=== PATIENT | male | born 1950 | race American Indian/Alaskan Native ===

== ENCOUNTER 2019-01-01 20:40 | Inpatient (IN) | payer MEDICARE, OTHER ==
[2019-01-01] MEDS ORDERED: NACL 0.9% 1000 ML 1,000 ML IV ONE ×2 (21:21→21:58)
[2019-01-01] MEDS ORDERED: NACL 0.9% 1000 ML 2,000 ML ONE (21:21)
[2019-01-01] MEDS ORDERED: ZOFRAN IV ONE (21:21)
[2019-01-01 21:47] LABS: Hemoglobin 12.5 gm/dl (11.8-15.2); Mean Corpuscular HGB Conc 35 % (32-34); Mean Corpuscular Volume 92 fl (84-94); Platelet Count 170 K/mm3 (140-440); Red Blood Count 3.91 M/mm3 (3.65-5.03); Red Cell Distribution Width 16.1 % (13.2-15.2)
[2019-01-01 21:53] LABS: Albumin 2.6 g/dL (3.9-5); Calcium 8.7 mg/dL (8.4-10.2)
[2019-01-01 21:54] LABS: INR 1.27 (0.87-1.13)
[2019-01-01] MEDS ORDERED: NACL 0.9% 1000 ML IV ONE (22:03)
[2019-01-01] MEDS ORDERED: MAXIPIME/NS 1 GM/100 ML 1 GM/100 ML BAG IV ONE (22:03)
[2019-01-01] MEDS ORDERED: VANCOMYCIN/NS 1 GM/250 ML 1 GM/250 ML BAG IV ONE (22:04)
[2019-01-01 22:31] LABS: Band Neutrophils # (Manual) 4.2 K/mm3; Basophils % (Manual) 0 % (0.0-1.8); Eosinophils % (Manual) 0 % (0.0-4.3); Total Cells Counted 100
[2019-01-01 22:32] LABS: Macrocytosis 1+; Platelet Estimate Consistent w Auto; Target Cells Few
--- NOTE | 2019-01-01 22:58 | XRay Report ---
FINAL REPORT EXAM: XRAY CHEST SINGLE VIEW HISTORY: AMS TECHNIQUE: Frontal portable view of the chest Comparison: None FINDINGS: There is bilateral hypoinflation with crowding of the bronchovascular structures. The there prominence of the interstitial markings in both lungs. There is the appearance of atelectasis in both lung bases with bilateral pleural effusions. The cardiac silhouette appears to be normal size. The thoracic aorta is tortuous. The bony structures are unremarkable. The visualized portion the abdomen is notable for a distended air-filled loop of bowel in the upper a bdomen with an otherwise paucity of bowel gas in the upper abdomen.. IMPRESSION: 1. Hypoinflation with prominence of the interstitial markings in both lungs, atelectasis in both lung bases and evidence of bilateral pleural effusions. Infectious and noninfectious etiologies, to inclu de CHF, need to be considered. 2. Distended air-filled loop of bowel in the visualized portion the abdomen with and otherwise paucit y of bowel gas in the upper abdomen. CT abdomen and pelvis may be helpful for further evaluation of this finding.
[2019-01-01 23:19] LABS: Bacteria,Urine 1+ /HPF (Negative); Bilirubin,Urine NEG (Negative); Blood,Urine MOD (Negative); Color,Urine Amber (Yellow); Granular Casts,Urine 4 /LPF; Hyaline Casts,Urine 41 /LPF; Mucus,Urine 1+ /HPF
--- NOTE | 2019-01-01 23:19 | Emergency Department Report ---
ED Altered Mental Status HPI - General Chief Complaint: Altered Mental Status Stated Complaint: SWOLLEN LEGS, ABDOMINAL PAIN Time Seen by Provider: 01/01/19 21:14 Source: patient Mode of arrival: Ambulatory Limitations: Altered Mental Status - History of Present Illness Initial Comments: 68-year-old male found his home by her friend with altered mental status. Patient is somewhat confused. Patient states his friend thought he should come to the ER because he did not look well. Patient states he feels "fine." Denies any pain. Patient has dried blood in his nose. I asked if he fell, patient states no. States his nose started bleeding because he was blowing his nose a lot. Patient states he vomited "dark stuff" earlier, and he has been blowing his nose since. Patient denies dark stool or blood in his stool. Patient has severely distended abdomen and with edema of the bilateral lower extremities. Denies abdominal pain. Denies history of cirrhosis. Denies alcohol abuse. I asked patient if he has ever been told that he has hepatitis or Hep C, patient reports yes. MD Complaint: altered mental status -: unknown Context: liver disease (possible), unknown Associated Symptoms: nausea/vomiting. denies: chest pain, cough, fever/chills, headaches - Related Data Allergies Allergy/AdvReac Type Severity Reaction Status Date / Time No Known Allergies Allergy Verified 01/01/19 23:23 ED Review of Systems ROS: Stated complaint: SWOLLEN LEGS, ABDOMINAL PAIN Other details as noted in HPI Comment: All other systems reviewed and negative Constitutional: denies: chills, fever Respiratory: denies: cough, shortness of breath Cardiovascular: denies: chest pain Gastrointestinal: vomiting, hematemesis. denies: melena, hematochezia Neurological: denies: headache ED Past Medical Hx - Social History Smoking Status: Unknown if ever smoked ED Physical Exam - General Limitations: Altered Mental Status General appearance: alert, lethargic - Head Head exam: Present: atraumatic, normocephalic - Eye Eye exam: Present: scleral icterus - ENT ENT exam: Present: mucous membranes dry, other (dried blood in nare) - Neck Neck exam: Present: normal inspection - Respiratory Respiratory exam: Present: normal lung sounds bilaterally. Absent: respiratory distress - Cardiovascular Cardiovascular Exam: Present: regular rate, normal rhythm - GI/Abdominal GI/Abdominal exam: Present: distended. Absent: tenderness - Extremities Exam Extremities exam: Present: other (2+ pitting edema bilateral lower extremities) - Neurological Exam Neurological exam: Present: alert, altered - Psychiatric Psychiatric exam: Present: normal affect, normal mood - Skin Skin exam: Present: warm, dry, intact, normal color ED Course Vital Signs 01/01/19 01/01/19 01/01/19 20:50 21:15 21:21 Temperature 92.1 F L Temperature [ Pre-Procedure] Pulse Rate 85 146 H 79 Pulse Rate [Pre -Procedure] Respiratory 20 21 Rate Respiratory Rate [Pre- Procedure] Blood Pressure 73/42 Blood Pressure 69/52 55/34 [Left] Blood Pressure [Pre-Procedure] O2 Sat by Pulse 85 Oximetry O2 Sat by Pulse Oximetry [Pre- Procedure] 01/01/19 01/01/19 01/01/19 21:45 22:00 22:03 Temperature Temperature [ Pre-Procedure] Pulse Rate 78 80 Pulse Rate [Pre -Procedure] Respiratory 17 18 21 Rate Respiratory Rate [Pre- Procedure] Blood Pressure 66/36 91/64 Blood Pressure [Left] Blood Pressure [Pre-Procedure] O2 Sat by Pulse 93 100 100 Oximetry O2 Sat by Pulse Oximetry [Pre- Procedure] 01/01/19 01/01/19 01/01/19 22:30 22:45 23:00 Temperature 91.7 F L Temperature [ Pre-Procedure] Pulse Rate 80 79 81 Pulse Rate [Pre -Procedure] Respiratory 18 18 17 Rate Respiratory Rate [Pre- Procedure] Blood Pressure 86/60 89/60 78/57 Blood Pressure [Left] Blood Pressure [Pre-Procedure] O2 Sat by Pulse 100 98 97 Oximetry O2 Sat by Pulse Oximetry [Pre- Procedure] 01/01/19 01/01/19 01/01/19 23:01 23:15 23:30 Temperature Temperature [ 92.1 F L Pre-Procedure] Pulse Rate 80 79 Pulse Rate [Pre 81 -Procedure] Respiratory 15 22 Rate Respiratory 17 Rate [Pre- Procedure] Blood Pressure 84/62 92/63 Blood Pressure [Left] Blood Pressure 78/57 [Pre-Procedure] O2 Sat by Pulse 100 94 Oximetry O2 Sat by Pulse 97 Oximetry [Pre- Procedure] 01/02/19 01/02/19 01/02/19 00:15 00:17 00:31 Temperature Temperature [ Pre-Procedure] Pulse Rate 81 83 83 Pulse Rate [Pre -Procedure] Respiratory 17 22 18 Rate Respiratory Rate [Pre- Procedure] Blood Pressure 97/60 97/60 97/64 Blood Pressure [Left] Blood Pressure [Pre-Procedure] O2 Sat by Pulse 100 100 100 Oximetry O2 Sat by Pulse Oximetry [Pre- Procedure] 01/02/19 00:45 Temperature Temperature [ Pre-Procedure] Pulse Rate 86 Pulse Rate [Pre -Procedure] Respiratory 20 Rate Respiratory Rate [Pre- Procedure] Blood Pressure 97/64 Blood Pressure [Left] Blood Pressure [Pre-Procedure] O2 Sat by Pulse 100 Oximetry O2 Sat by Pulse Oximetry [Pre- Procedure] - Central Line Placement Right Femoral Consent Obtained: emergent situation Time Out Performed: Yes Patient Placed on Monitor/Pulse Ox: Yes Prep: mask, gown, gloves Central Line Prep: Chlorhexidine scrub Local Anesthesia Used: Lidocaine 1% Amount of Anesthesia Used (mls): 3 Ultrasound Used for Placement: No Central Line Lumen Inserted: triple Bloods Obtained for Lab: Yes (ammonia level) Central Line Position: good blood return, all ports aspirated, flus, sutured in place with 2-0 Dressing Applied: Tegaderm Patient Tolerated Procedure: well Complications: none - Lab Data Result diagrams: 01/01/19 21:25 01/01/19 21:25 Lab Results 01/01/19 01/01/19 01/01/19 Range/Units 02:22 21:16 21:25 WBC 14.9 H (4.5-11.0) K/mm3 RBC 3.91 (3.65-5.03) M/mm3 Hgb 12.5 (11.8-15.2) gm/dl Hct 36.0 (35.5-45.6) % MCV 92 (84-94) fl MCH 32 (28-32) pg MCHC 35 H (32-34) % RDW 16.1 H (13.2-15.2) % Plt Count 170 (140-440) K/mm3 Add Manual Diff Complete Total Counted 100 Seg Neutrophils % [employer] In[employer] Seg Neuts % (Manual) 68.0 (40.0-70.0) % Band Neutrophils % 28.0 % Lymphocytes % (Manual) 2.0 L (13.4-35.0) % Reactive Lymphs % (Man) 0 % Monocytes % (Manual) 2.0 (0.0-7.3) % Eosinophils % (Manual) 0 (0.0-4.3) % Basophils % (Manual) 0 (0.0-1.8) % Metamyelocytes % 0 % Myelocytes % 0 % Promyelocytes % 0 % Blast Cells % 0 % Nucleated RBC % Not Reportable Seg Neutrophils # Man 10.1 H (1.8-7.7) K/mm3 Band Neutrophils # 4.2 K/mm3 Lymphocytes # (Manual) 0.3 L (1.2-5.4) K/mm3 Abs React Lymphs (Man) 0.0 K/mm3 Monocytes # (Manual) 0.3 (0.0-0.8) K/mm3 Eosinophils # (Manual) 0.0 (0.0-0.4) K/mm3 Basophils # (Manual) 0.0 (0.0-0.1) K/mm3 Metamyelocytes # 0.0 K/mm3 Myelocytes # 0.0 K/mm3 Promyelocytes # 0.0 K/mm3 Blast Cells # 0.0 K/mm3 WBC Morphology Not Reportable Hypersegmented Neuts Not Reportable Hyposegmented Neuts Not Reportable Hypogranular Neuts Not Reportable Smudge Cells Not Reportable Toxic Granulation Not Reportable Toxic Vacuolation Not Reportable Dohle Bodies Not Reportable Pelger-Huet Anomaly Not Reportable Korin Rods Not Reportable Platelet Estimate Consistent w auto Clumped Platelets Not Reportable Plt Clumps, EDTA Not Reportable Large Platelets Not Reportable Giant Platelets Not Reportable Platelet Satelliting Not Reportable Plt Morphology Comment Not Reportable RBC Morphology Not Reportable Dimorphic RBCs Not Reportable Polychromasia Not Reportable Hypochromasia Not Reportable Poikilocytosis Not Reportable Anisocytosis Not Reportable Microcytosis Not Reportable Macrocytosis 1+ Spherocytes Not Reportable Pappenheimer Bodies Not Reportable Sickle Cells Not Reportable Target Cells Few Tear Drop Cells Not Reportable Ovalocytes Not Reportable Helmet Cells Not Reportable Shrestha-Kuna Bodies Not Reportable [place] Rings Not Reportable [place] Cells Not Reportable Bite Cells Not Reportable Crenated Cell Not Reportable Elliptocytes Not Reportable Acanthocytes (Spur) Not Reportable Rouleaux Not Reportable Hemoglobin C Crystals Not Reportable Schistocytes Not Reportable Malaria parasites Not Reportable Macho Bodies Not Reportable Hem Pathologist Commnt No PT (12.2-14.9) Sec. INR (0.87-1.13) APTT (24.2-36.6) Sec. Sodium (137-145) mmol/L Potassium (3.6-5.0) mmol/L Chloride (98-107) mmol/L Carbon Dioxide (22-30) mmol/L Anion Gap mmol/L BUN (9-20) mg/dL Creatinine (0.8-1.5) mg/dL Estimated GFR ml/min BUN/Creatinine Ratio % Glucose (75-100) mg/dL POC Glucose 106 H (70-105) Lactic Acid (0.7-2.0) mmol/L Calcium (8.4-10.2) mg/dL Total Bilirubin (0.1-1.2) mg/dL AST (5-40) units/L ALT (7-56) units/L Alkaline Phosphatase (35-129) units/L Ammonia (25-60) umol/L Total Protein (6.3-8.2) g/dL Albumin (3.9-5) g/dL Albumin/Globulin Ratio % Urine Color [place] (Yellow) Urine Turbidity Slightly-cloudy (Clear) Urine pH 5.0 (5.0-7.0) Ur Specific Eva 1.015 (1.003-1.030) Urine Protein 100 mg/dl (Negative) mg/dL Urine Glucose (UA) Neg (Negative) mg/dL Urine Ketones Tr (Negative) mg/dL Urine Blood Mod (Negative) Urine Nitrite Neg (Negative) Urine Bilirubin Neg (Negative) Urine Urobilinogen 4.0 (<2.0) mg/dL Ur Leukocyte Esterase Tr (Negative) Urine WBC (Auto) 27.0 H (0.0-6.0) /HPF Urine RBC (Auto) 3.0 (0.0-6.0) /HPF U Epithel Cells (Auto) < 1.0 (0-13.0) /HPF Urine Bacteria (Auto) 1+ (Negative) /HPF Hyaline Casts 41 /LPF Granular Casts 4 /LPF Urine Mucus 1+ /HPF 01/01/19 01/01/19 01/01/19 Range/Units 21:25 21:25 21:25 WBC (4.5-11.0) K/mm3 RBC (3.65-5.03) M/mm3 Hgb (11.8-15.2) gm/dl Hct (35.5-45.6) % MCV (84-94) fl MCH (28-32) pg MCHC (32-34) % RDW (13.2-15.2) % Plt Count (140-440) K/mm3 Add Manual Diff Total Counted Seg Neutrophils % Seg Neuts % (Manual) (40.0-70.0) % Band Neutrophils % % Lymphocytes % (Manual) (13.4-35.0) % Reactive Lymphs % (Man) % Monocytes % (Manual) (0.0-7.3) % Eosinophils % (Manual) (0.0-4.3) % Basophils % (Manual) (0.0-1.8) % Metamyelocytes % % Myelocytes % % Promyelocytes % % Blast Cells % % Nucleated RBC % Seg Neutrophils # Man (1.8-7.7) K/mm3 Band Neutrophils # K/mm3 Lymphocytes # (Manual) (1.2-5.4) K/mm3 Abs React Lymphs (Man) K/mm3 Monocytes # (Manual) (0.0-0.8) K/mm3 Eosinophils # (Manual) (0.0-0.4) K/mm3 Basophils # (Manual) (0.0-0.1) K/mm3 Metamyelocytes # K/mm3 Myelocytes # K/mm3 Promyelocytes # K/mm3 Blast Cells # K/mm3 WBC Morphology Hypersegmented Neuts Hyposegmented Neuts Hypogranular Neuts Smudge Cells Toxic Granulation Toxic Vacuolation Dohle Bodies Pelger-Huet Anomaly Korin Rods Platelet Estimate Clumped Platelets Plt Clumps, EDTA Large Platelets Giant Platelets Platelet Satelliting Plt Morphology Comment RBC Morphology Dimorphic RBCs Polychromasia Hypochromasia Poikilocytosis Anisocytosis Microcytosis Macrocytosis Spherocytes Pappenheimer Bodies Sickle Cells Target Cells Tear Drop Cells Ovalocytes Helmet Cells Shrestha-Kuna Bodies [place] Rings [place] Cells Bite Cells Crenated Cell Elliptocytes Acanthocytes (Spur) Rouleaux Hemoglobin C Crystals Schistocytes Malaria parasites Macho Bodies Hem Pathologist Commnt PT (12.2-14.9) Sec. INR (0.87-1.13) APTT 31.1 (24.2-36.6) Sec. Sodium 124 L (137-145) mmol/L Potassium 3.9 (3.6-5.0) mmol/L Chloride 80.3 L (98-107) mmol/L Carbon Dioxide 21 L (22-30) mmol/L Anion Gap 27 mmol/L BUN 25 H (9-20) mg/dL Creatinine 1.7 H (0.8-1.5) mg/dL Estimated GFR 49 ml/min BUN/Creatinine Ratio 15 % Glucose 117 H (75-100) mg/dL POC Glucose (70-105) Lactic Acid 3.50 H* (0.7-2.0) mmol/L Calcium 8.7 (8.4-10.2) mg/dL Total Bilirubin 2.40 H (0.1-1.2) mg/dL AST 200 H (5-40) units/L ALT 49 (7-56) units/L Alkaline Phosphatase 63 (35-129) units/L Ammonia (25-60) umol/L Total Protein 6.7 (6.3-8.2) g/dL Albumin 2.6 L (3.9-5) g/dL Albumin/Globulin Ratio 0.6 % Urine Color (Yellow) Urine Turbidity (Clear) Urine pH (5.0-7.0) Ur Specific Eva (1.003-1.030) Urine Protein (Negative) mg/dL Urine Glucose (UA) (Negative) mg/dL Urine Ketones (Negative) mg/dL Urine Blood (Negative) Urine Nitrite (Negative) Urine Bilirubin (Negative) Urine Urobilinogen (<2.0) mg/dL Ur Leukocyte Esterase (Negative) Urine WBC (Auto) (0.0-6.0) /HPF Urine RBC (Auto) (0.0-6.0) /HPF U Epithel Cells (Auto) (0-13.0) /HPF Urine Bacteria (Auto) (Negative) /HPF Hyaline Casts /LPF Granular Casts /LPF Urine Mucus /HPF 01/01/19 01/01/19 01/01/19 Range/Units 21:25 22:26 23:23 WBC (4.5-11.0) K/mm3 RBC (3.65-5.03) M/mm3 Hgb (11.8-15.2) gm/dl Hct (35.5-45.6) % MCV (84-94) fl MCH (28-32) pg MCHC (32-34) % RDW (13.2-15.2) % Plt Count (140-440) K/mm3 Add Manual Diff Total Counted Seg Neutrophils % Seg Neuts % (Manual) (40.0-70.0) % Band Neutrophils % % Lymphocytes % (Manual) (13.4-35.0) % Reactive Lymphs % (Man) % Monocytes % (Manual) (0.0-7.3) % Eosinophils % (Manual) (0.0-4.3) % Basophils % (Manual) (0.0-1.8) % Metamyelocytes % % Myelocytes % % Promyelocytes % % Blast Cells % % Nucleated RBC % Seg Neutrophils # Man (1.8-7.7) K/mm3 Band Neutrophils # K/mm3 Lymphocytes # (Manual) (1.2-5.4) K/mm3 Abs React Lymphs (Man) K/mm3 Monocytes # (Manual) (0.0-0.8) K/mm3 Eosinophils # (Manual) (0.0-0.4) K/mm3 Basophils # (Manual) (0.0-0.1) K/mm3 Metamyelocytes # K/mm3 Myelocytes # K/mm3 Promyelocytes # K/mm3 Blast Cells # K/mm3 WBC Morphology Hypersegmented Neuts Hyposegmented Neuts Hypogranular Neuts Smudge Cells Toxic Granulation Toxic Vacuolation Dohle Bodies Pelger-Huet Anomaly Korin Rods Platelet Estimate Clumped Platelets Plt Clumps, EDTA Large Platelets Giant Platelets Platelet Satelliting Plt Morphology Comment RBC Morphology Dimorphic RBCs Polychromasia Hypochromasia Poikilocytosis Anisocytosis Microcytosis Macrocytosis Spherocytes Pappenheimer Bodies Sickle Cells Target Cells Tear Drop Cells Ovalocytes Helmet Cells Shrestha-Kuna Bodies [place] Rings Amanda Cells Bite Cells Crenated Cell Elliptocytes Acanthocytes (Spur) Rouleaux Hemoglobin C Crystals Schistocytes Malaria parasites Macho Bodies Hem Pathologist Commnt PT 16.7 H (12.2-14.9) Sec. INR 1.27 H (0.87-1.13) APTT (24.2-36.6) Sec. Sodium (137-145) mmol/L Potassium (3.6-5.0) mmol/L Chloride (98-107) mmol/L Carbon Dioxide (22-30) mmol/L Anion Gap mmol/L BUN (9-20) mg/dL Creatinine (0.8-1.5) mg/dL Estimated GFR ml/min BUN/Creatinine Ratio % Glucose (75-100) mg/dL POC Glucose (70-105) Lactic Acid 2.80 H* 2.10 H* (0.7-2.0) mmol/L Calcium (8.4-10.2) mg/dL Total Bilirubin (0.1-1.2) mg/dL AST (5-40) units/L ALT (7-56) units/L Alkaline Phosphatase (35-129) units/L Ammonia (25-60) umol/L Total Protein (6.3-8.2) g/dL Albumin (3.9-5) g/dL Albumin/Globulin Ratio % Urine Color (Yellow) Urine Turbidity (Clear) Urine pH (5.0-7.0) Ur Specific Eva (1.003-1.030) Urine Protein (Negative) mg/dL Urine Glucose (UA) (Negative) mg/dL Urine Ketones (Negative) mg/dL Urine Blood (Negative) Urine Nitrite (Negative) Urine Bilirubin (Negative) Urine Urobilinogen (<2.0) mg/dL Ur Leukocyte Esterase (Negative) Urine WBC (Auto) (0.0-6.0) /HPF Urine RBC (Auto) (0.0-6.0) /HPF U Epithel Cells (Auto) (0-13.0) /HPF Urine Bacteria (Auto) (Negative) /HPF Hyaline Casts /LPF Granular Casts /LPF Urine Mucus /HPF 01/01/19 Range/Units 23:23 WBC (4.5-11.0) K/mm3 RBC (3.65-5.03) M/mm3 Hgb (11.8-15.2) gm/dl Hct (35.5-45.6) % MCV (84-94) fl MCH (28-32) pg MCHC (32-34) % RDW (13.2-15.2) % Plt Count (140-440) K/mm3 Add Manual Diff Total Counted Seg Neutrophils % Seg Neuts % (Manual) (40.0-70.0) % Band Neutrophils % % Lymphocytes % (Manual) (13.4-35.0) % Reactive Lymphs % (Man) % Monocytes % (Manual) (0.0-7.3) % Eosinophils % (Manual) (0.0-4.3) % Basophils % (Manual) (0.0-1.8) % Metamyelocytes % % Myelocytes % % Promyelocytes % % Blast Cells % % Nucleated RBC % Seg Neutrophils # Man (1.8-7.7) K/mm3 Band Neutrophils # K/mm3 Lymphocytes # (Manual) (1.2-5.4) K/mm3 Abs React Lymphs (Man) K/mm3 Monocytes # (Manual) (0.0-0.8) K/mm3 Eosinophils # (Manual) (0.0-0.4) K/mm3 Basophils # (Manual) (0.0-0.1) K/mm3 Metamyelocytes # K/mm3 Myelocytes # K/mm3 Promyelocytes # K/mm3 Blast Cells # K/mm3 WBC Morphology Hypersegmented Neuts Hyposegmented Neuts Hypogranular Neuts Smudge Cells Toxic Granulation Toxic Vacuolation Dohle Bodies Pelger-Huet Anomaly Korin Rods Platelet Estimate Clumped Platelets Plt Clumps, EDTA Large Platelets Giant Platelets Platelet Satelliting Plt Morphology Comment RBC Morphology Dimorphic RBCs Polychromasia Hypochromasia Poikilocytosis Anisocytosis Microcytosis Macrocytosis Spherocytes Pappenheimer Bodies Sickle Cells Target Cells Tear Drop Cells Ovalocytes Helmet Cells Shrestha-Kuna Bodies [place] Rings Amanda Cells Bite Cells Crenated Cell Elliptocytes Acanthocytes (Spur) Rouleaux Hemoglobin C Crystals Schistocytes Malaria parasites Macho Bodies Hem Pathologist Commnt PT (12.2-14.9) Sec. INR (0.87-1.13) APTT (24.2-36.6) Sec. Sodium (137-145) mmol/L Potassium (3.6-5.0) mmol/L Chloride (98-107) mmol/L Carbon Dioxide (22-30) mmol/L Anion Gap mmol/L BUN (9-20) mg/dL Creatinine (0.8-1.5) mg/dL Estimated GFR ml/min BUN/Creatinine Ratio % Glucose (75-100) mg/dL POC Glucose (70-105) Lactic Acid (0.7-2.0) mmol/L Calcium (8.4-10.2) mg/dL Total Bilirubin (0.1-1.2) mg/dL AST (5-40) units/L ALT (7-56) units/L Alkaline Phosphatase (35-129) units/L Ammonia 49.0 (25-60) umol/L Total Protein (6.3-8.2) g/dL Albumin (3.9-5) g/dL Albumin/Globulin Ratio % Urine Color (Yellow) Urine Turbidity (Clear) Urine pH (5.0-7.0) Ur Specific Eva (1.003-1.030) Urine Protein (Negative) mg/dL Urine Glucose (UA) (Negative) mg/dL Urine Ketones (Negative) mg/dL Urine Blood (Negative) Urine Nitrite (Negative) Urine Bilirubin (Negative) Urine Urobilinogen (<2.0) mg/dL Ur Leukocyte Esterase (Negative) Urine WBC (Auto) (0.0-6.0) /HPF Urine RBC (Auto) (0.0-6.0) /HPF U Epithel Cells (Auto) (0-13.0) /HPF Urine Bacteria (Auto) (Negative) /HPF Hyaline Casts /LPF Granular Casts /LPF Urine Mucus /HPF - EKG Data -: EKG Interpreted by Ok EKG shows normal: sinus rhythm, axis, QRS complexes, ST-T waves Rate: normal Interpretation: no acute changes, other (prolonged QT) - Radiology Data Radiology results: report reviewed, image reviewed CT Abd/Pelvis: Significant ascites, liver small consistent with cirrhosis, no evidence of intestinal or urinary tract obstruction, bowel is difficult to evaluate due to the amount of ascites, moderate hiatal hernias identified, fluid within the esophagus consistent with significant reflux CT Head: normal examination * tech issues with radiology; results faxed, however not crossing over into [place] - Medical Decision Making 68-year-old male with what appears to liver cirrhosis presents to ED with altered mental status and generalized weakness. Patient hypotensive on arrival, afebrile, not tachycardic. Patient given IV fluid bolus and 30 mL per KG. WBCs 14.9, lactic acid 3.5. Empiric antibiotics given, vancomycin and cefepime. Patient reported with sounds like coffee-ground emesis, however hemoglobin is normal. Patient's hyponatremic with sodium of 124, this is likely due to patient's fluid overloaded state, as patient has severe ascites and edema to bilateral lower extremities. UA shows evidence of mild infection with 27 wbc's and 1+ bacteria. Chest x-ray showed bilateral pleural effusions. CT head negative. Ammonia level within normal limits. CT abdomen and pelvis showed severe ascites and cirrhotic liver, no bowel or urinary infection. The patient remained hypotensive following fluid bolus, so central line was placed and patient placed on Levophed gtt. Patient will be admitted to the ICU by Dr. Guzman, hospitalist. - Differential Diagnosis dehydration, sepsis, CVA, electrolyte abnormality, hepatic encephalopathy Critical Care Time: Yes Critical care time in (mins) excluding proc time.: 60 Critical care attestation.: If time is entered above; I have spent that time in minutes in the direct care of this critically ill patient, excluding procedure time. Critical Care Time: 60 minutes ED Disposition Clinical Impression: Altered mental status, Sepsis, UTI (urinary tract infection), Hyponatremia, Acute renal failure, Hyperbilirubinemia, Ascites, Pleural effusion, Cirrhosis Disposition: 09 OP ADMIT IP TO THIS HOSP Is pt being admited?: Yes Condition: Critical Referrals: JOSE MANUEL BRICEÑO MD [Primary Care Provider] - 3-5 Days Time of Disposition: 23:53
[2019-01-01] MEDS: LEVOPHED DRIP 4 MG/NS 250 ML 4 MG/250 ML BAG IV SCH (23:25)
[2019-01-02] MEDS ORDERED: VANCOMYCIN PHARMACY TO DOSE IV SCH (02:00)
[2019-01-02] MEDS ORDERED: NACL 0.9% 1000 ML 1,000 ML IV SCH (02:00)
[2019-01-02 05:05] LABS: BUN/Creatinine Ratio 20; Blood Urea Nitrogen 26 mg/dL (9-20); Calcium 7.8 mg/dL (8.4-10.2); Hemolysis Index 90
[2019-01-02] MEDS ORDERED: MAXIPIME/NS 1 GM/100 ML 1 GM/100 ML BAG IV SCH ×2 (06:00→10:00)
--- NOTE | 2019-01-02 08:57 | History and Physical Report ---
CHIEF COMPLAINT: Altered mental status. HISTORY OF PRESENT ILLNESS: The patient is a 68-year-old male who was noted by friends to be confused and told him that he does not feel well that he should be taken to the Emergency Room for evaluation, but on arrival at the Emergency Room, the patient said he is fine and said that he has been blowing his nose hard. When he was evaluated ,he was found to have some dried blood in the nose. The patient denied history of falling down and admitted to vomiting some black material but denied history of black stool. Denied history of bright red blood in the stool or vomiting of bright red blood. The patient presented to the Emergency Room with distended abdomen and swollen lower limbs. There is no history of abdominal pain. No history of fever or chills. The patient denied having history of cirrhosis or alcohol abuse, but admitted to being told that he has had hepatitis C infection. There is no history of chest pain. No history of shortness of breath, fever or chills. The patient also presented to the Emergency Room with low blood pressure of about 69/52. PAST MEDICAL HISTORY: Not well known because the patient is altered and a little confused and nobody could give proper history at the time of evaluation. PAST SURGICAL HISTORY: Not well known. FAMILY HISTORY: Noncontributory. SOCIAL HISTORY: It is not clear whether the patient smokes cigarette or drinks alcohol or uses illicit drugs. MEDICATIONS: The patient's home medications are not known. ALLERGIES: There are no known drug allergies. REVIEW OF SYSTEMS: CONSTITUTIONAL: There is no fever, no chills, no diaphoresis. HEENT: There is no headache or sore; however, there is history of jaundice. CARDIOVASCULAR SYSTEM: There is no chest pain or orthopnea. There is low blood pressure. RESPIRATORY SYSTEM: There is no shortness of breath or cough. GASTROINTESTINAL SYSTEM: Abdominal distention noted. No diarrhea, no melena, no constipation; however, there is vomiting of dark material. NEUROLOGICAL SYSTEM: There is altered mental status, but no numbness or dizziness. MUSCULOSKELETAL SYSTEM: There is no joint pain or swelling. DERMATOLOGICAL SYSTEM: There is no skin rash or itching. GENITOURINARY SYSTEM: There is no dysuria, hematuria or flank pain. Rest of system review is normal. PHYSICAL EXAMINATION: GENERAL: At the time of exam, the patient was found to be alert, oriented to person only, and not in acute distress. VITAL SIGNS: At initial time of presentation show temperature of 92.1 degrees Fahrenheit, pulse of 85, respirations 20, blood pressure 69/52, O2 sat of 85% on room air. HEENT: Shows pupils to be equal, round and reactive to light and accommodation. There is icterus or jaundice. Oral mucosa looks moist. NECK: Supple with no JVD or carotid bruit. CARDIOVASCULAR SYSTEM: Shows normal first and second heart sounds with no gallops or murmurs. RESPIRATORY SYSTEM: Shows reduced air entry on both sides of the lungs with no abnormal breath sounds. GASTROINTESTINAL SYSTEM: Shows abdomen to be distended, nontender with some degree of hepatomegaly and presence of fluid thrill suggestive of ascites. Bowel sound is normal. There is no rigidity or rebound tenderness. NEUROLOGICAL SYSTEM: Shows no focal deficit, but the patient is confused. MUSCULOSKELETAL SYSTEM: Shows swelling in the lower extremities with no joint tenderness. DERMATOLOGICAL SYSTEM: Shows no skin rash. GENITOURINARY SYSTEM: Shows no costovertebral angle tenderness. PERTINENT LABORATORY AND IMAGING STUDIES: The patient had abdominal and pelvic CT done with results pending. The patient's chest x-ray showed hypoinflation with prominence of interstitial markings and good lung. Atelectasis in both lung bases and evidence of bilateral pleural effusion was noted, and the radiologist said that infectious or noninfectious etiology including congestive heart failure needs to be considered. There is finding of distended air fluid loops of bowel in the visceral portion of the abdomen with an otherwise paucity of bowel gas in the upper abdomen and the radiologist said CT abdomen and pelvis may be helpful for further evaluation. Lab results: The patient's CBC showed high white count of 14,900, normal hemoglobin and normal hematocrit with an unremarkable coagulation studies. The patient's chemistry showed low sodium of 124, low chloride of 80.3 with elevated BUN of 25 and elevated creatinine of 1.7 and low estimated GFR of 49. The patient's lactic acid level showed a slight of 2.10 and total bilirubin level is high with a value of 2.4. The patient's liver transaminases show high AST of 200 with normal ALT of 49 and the albumin level is low with a value of 2.6. The patient's urinalysis showed maxime, slightly cloudy urine with trace urine ketone, negative urine nitrite, elevated urine wbc's of 27 and trace urine leukocyte esterase with 1+ bacteria. DIAGNOSES: Include: 1. Altered mental status. 2. Ascites. 3. Urinary tract infection. 4. Sepsis. 5. Acute renal failure. 6. Pleural effusion. 7. Hyponatremia. PLAN OF CARE: 1. The patient will be admitted to ICU because of hypotension and treatment with Levophed started in the emergency room. 2. The patient will be on IV cefepime 1 gram q.8 hours. 3. The patient will continue the Levophed drip started in the Emergency Room. 4. The patient will be on IV normal saline running at 100 mL an hour. 5. The patient will be on IV Zofran 4 mg every 8 hours for nausea and vomiting. 6. The patient will be on IV vancomycin with pharmacy to dose, also be on cefepime 1 gram q.8 hours. 7. The patient will have Interventional Radiology consult for ultrasound-guided paracentesis. 8. The patient will have a GI consult with [facility] for evaluation of jaundice with ascites and possible liver cirrhosis. 9. The patient will have basic metabolic panel checked this morning for trending of sodium level. 10. The patient will have Nephrology consult with Dr. Miller for evaluation of acute kidney injury. JOB# [id number] OCN/NICCI MTDD
[2019-01-02 09:18] LABS: Hematocrit 32.4 % (35.5-45.6); Hemoglobin 11.3 gm/dl (11.8-15.2)
[2019-01-02] MEDS: D5NS 1,000 ML IV SCH ×2 (09:34→20:08)
[2019-01-02] MEDS ORDERED: VANCOMYCIN 1,250 MG in NACL 0.9% 250ML 250 ML IV SCH (10:00)
[2019-01-02] MEDS: MAXIPIME/NS 2 GM/100 ML 2 GM/100 ML BAG IV SCH ×2 (10:04→23:03)
--- NOTE | 2019-01-02 11:13 | Consultation ---
History of Present Illness - Reason for Consult Consult date: 01/02/19 acute renal failure, hyponatremia Requesting physician: DENNIS WALTERS - History of Present Illness 68-year-old male found his home by her friend with altered mental status. Patient is somewhat confused. Patient states his friend thought he should come to the ER because he did not look well. Patient states he feels "fine." Denies any pain. Patient has dried blood in his nose. I asked if he fell, patient states no. States his nose started bleeding because he was blowing his nose a lot. Patient states he vomited "dark stuff" earlier, and he has been blowing his nose since. Patient denies dark stool or blood in his stool. Patient has severely distended abdomen and with edema of the bilateral lower extremities. Denies abdominal pain. Denies history of cirrhosis. Denies alcohol abuse. I asked patient if he has ever been told that he has hepatitis or Hep C, patient reports yes. MD Complaint: altered mental status -: unknown Context: liver disease (possible), unknown Associated Symptoms: nausea/vomiting. denies: chest pain, cough, fever/chills, headaches - Related Data Allergies Allergy/AdvReac Type Severity Reaction Status Date / Time No Known Allergies Allergy Verified 01/01/19 23:23 ROS: Stated complaint: SWOLLEN LEGS, ABDOMINAL PAIN Other details as noted in HPI Comment: All other systems reviewed and negative Constitutional: denies: chills, fever Respiratory: denies: cough, shortness of breath Cardiovascular: denies: chest pain Gastrointestinal: vomiting, hematemesis. denies: melena, hematochezia Neurological: denies: headache Past Medical Hx - Social History Smoking Status: Unknown if ever smoked Past History Past Medical History: other (hepatitis c) Social history: alcohol abuse Family history: hypertension Medications and Allergies Allergies Allergy/AdvReac Type Severity Reaction Status Date / Time No Known Allergies Allergy Verified 01/01/19 23:23 Active Meds: Active Medications Norepinephrine (Levophed Drip 4 Mg/Ns 250 Ml) 4 mg in 250 mls @ 7.5 mls/hr IV TITR LORI; Protocol Last Titration: 01/02/19 09:35 Dose: 2 mcg/min, 7.5 mls/hr Documented by: Vancomycin HCl 1,500 mg/ (Sodium Chloride) 530 mls @ 333.333 mls/hr IV Q24H [facility] Cefepime HCl (Maxipime/Ns 2 Gm/100 Ml) 2 gm in 100 mls @ 200 mls/hr IV Q12HR [facility] Last Admin: 01/02/19 10:04 Dose: 200 mls/hr Documented by: Dextrose/Sodium Chloride (D5ns) 1,000 mls @ 100 mls/hr IV DIRECT [facility] Last Admin: 01/02/19 09:34 Dose: 100 mls/hr Documented by: Ondansetron HCl (Zofran) 4 mg IV Q8H PRN PRN Reason: Nausea And Vomiting Exam - Vital Signs Vital signs: Vital Signs Pulse Resp BP Pulse Ox 85 20 69/52 85 01/01/19 20:50 01/01/19 20:50 01/01/19 20:50 01/01/19 20:50 - Physical Exam Narrative exam: - General Limitations: Altered Mental Status General appearance: alert, lethargic - Head Head exam: Present: atraumatic, normocephalic - Eye Eye exam: Present: scleral icterus - ENT ENT exam: Present: mucous membranes dry, other (dried blood in nare) - Neck Neck exam: Present: normal inspection - Respiratory Respiratory exam: Present: normal lung sounds bilaterally. Absent: respiratory distress - Cardiovascular Cardiovascular Exam: Present: regular rate, normal rhythm - GI/Abdominal GI/Abdominal exam: Present: distended. Absent: tenderness - Extremities Exam Extremities exam: Present: other (2+ pitting edema bilateral lower extremities) - Neurological Exam Neurological exam: Present: alert, altered - Psychiatric Psychiatric exam: Present: normal affect, normal mood - Skin Skin exam: Present: warm, dry, intact, normal color Results - Lab Results 01/02/19 08:19 01/02/19 04:29 Most recent lab results Calcium 7.8 mg/dL (8.4-10.2) L 01/02/19 04:29 Assessment and Plan Impression: * Hyponatremia * ROBERTO * Hepatitis C * Sepsis * uti * Hypotension PLan: * ivf resuscitation * continue iv abx * keep MAP>65, vasopressors prn * avoid nephrotoxins, strict i/os * daily lytes * no indication for [employer]
[2019-01-02] MEDS: ZOFRAN IV PRN (11:45)
--- NOTE | 2019-01-02 12:04 | Event Note ---
Date: 01/02/19 Patient admitted earlier this morning for sepsis, AMS, chronic hep C, cirrhosis and ascites. H/P, labs and imagine were reviewed. Continue management per H/p.
[2019-01-02 12:20] LABS: Hematocrit 30.8 % (35.5-45.6); Hemoglobin 10.6 gm/dl (11.8-15.2)
--- NOTE | 2019-01-02 13:12 | Gastroenterology Consultation ---
History of Present Illness - Reason for Consult Consult date: 01/02/19 cirrhosis, ascites - History of Present Illness This is a 68 yo AAM with pmh of cirrhosis admitted overnight after found co nfused by his friends. Patient is confused and not able to give much history. Per chart review, patient stated that he was having nosebleed and also had black stuff in his mouth. He has had worsening abdominal distension. In the ED, he was noted to be hypotensive and had distended abdomen. Started on levophed and admitted to ICU. Paracentesis ordered but not done yet and likely to be done tomorrow. I tried to reach family. Could not reach sister. Called son's number, which was actually patient's ex-'s number. Son is here for winter break from [facility]. Per patient's ex-, patient has been on raw food diet and then special diet with fasting. Past History Past Medical History: liver disease, other (hepatitis c) Social history: alcohol abuse Family history: hypertension Medications and Allergies Allergies Allergy/AdvReac Type Severity Reaction Status Date / Time No Known Allergies Allergy Verified 01/01/19 23:23 Active Meds: Active Medications Norepinephrine (Levophed Drip 4 Mg/Ns 250 Ml) 4 mg in 250 mls @ 7.5 mls/hr IV TITR LORI; Protocol Last Titration: 01/02/19 11:44 Dose: 2 mcg/min, 7.5 mls/hr Documented by: Vancomycin HCl 1,500 mg/ (Sodium Chloride) 530 mls @ 333.333 mls/hr IV Q24H LORI Cefepime HCl (Maxipime/Ns 2 Gm/100 Ml) 2 gm in 100 mls @ 200 mls/hr IV Q12HR LORI Last Admin: 01/02/19 10:04 Dose: 200 mls/hr Documented by: Dextrose/Sodium Chloride (D5ns) 1,000 mls @ 100 mls/hr IV DIRECT LORI Last Admin: 01/02/19 09:34 Dose: 100 mls/hr Documented by: Ondansetron HCl (Zofran) 4 mg IV Q8H PRN PRN Reason: Nausea And Vomiting Last Admin: 01/02/19 11:45 Dose: 4 mg Documented by: Review of Systems - Review of Systems ROS unobtainable: due to mental status Exam - Constitutional Vital Signs: Temp Pulse Resp BP Pulse Ox 97.7 F 106 H 20 92/55 100 01/02/19 08:00 01/02/19 11:11 01/02/19 11:11 01/02/19 11:11 01/02/19 11:00 General appearance: no acute distress - EENT Eyes: EOM intact ENT: hearing intact - Neck Neck: supple - Respiratory Respiratory effort: normal Respiratory: bilateral: CTA - Cardiovascular Rhythm: regular Heart Sounds: Present: S1 & S2 - Gastrointestinal General gastrointestinal: Present: soft, non-tender, distended, normal bowel sounds - Integumentary Integumentary: Present: warm, dry - Neurologic Neurological: disoriented - Labs CBC & Chem 7: 01/02/19 11:46 01/02/19 04:29 Lab Results: Laboratory Results - last 24 hr 01/01/19 01/01/19 01/01/19 02:22 21:16 21:25 WBC 14.9 H RBC 3.91 Hgb 12.5 Hct 36.0 MCV 92 MCH 32 MCHC 35 H RDW 16.1 H Plt Count 170 Add Manual Diff Complete Total Counted 100 Seg Neutrophils % Conveyancer Seg Neuts % (Manual) 68.0 Band Neutrophils % 28.0 Lymphocytes % (Manual) 2.0 L Reactive Lymphs % (Man) 0 Monocytes % (Manual) 2.0 Eosinophils % (Manual) 0 Basophils % (Manual) 0 Metamyelocytes % 0 Myelocytes % 0 Promyelocytes % 0 Blast Cells % 0 Nucleated RBC % Not Reportable Seg Neutrophils # Man 10.1 H Band Neutrophils # 4.2 Lymphocytes # (Manual) 0.3 L Abs React Lymphs (Man) 0.0 Monocytes # (Manual) 0.3 Eosinophils # (Manual) 0.0 Basophils # (Manual) 0.0 Metamyelocytes # 0.0 Myelocytes # 0.0 Promyelocytes # 0.0 Blast Cells # 0.0 WBC Morphology Not Reportable Hypersegmented Neuts Not Reportable Hyposegmented Neuts Not Reportable Hypogranular Neuts Not Reportable Smudge Cells Not Reportable Toxic Granulation Not Reportable Toxic Vacuolation Not Reportable Dohle Bodies Not Reportable Pelger-Huet Anomaly Not Reportable Korin Rods Not Reportable Platelet Estimate Consistent w auto Clumped Platelets Not Reportable Plt Clumps, EDTA Not Reportable Large Platelets Not Reportable Giant Platelets Not Reportable Platelet Satelliting Not Reportable Plt Morphology Comment Not Reportable RBC Morphology Not Reportable Dimorphic RBCs Not Reportable Polychromasia Not Reportable Hypochromasia Not Reportable Poikilocytosis Not Reportable Anisocytosis Not Reportable Microcytosis Not Reportable Macrocytosis 1+ Spherocytes Not Reportable Pappenheimer Bodies Not Reportable Sickle Cells Not Reportable Target Cells Few Tear Drop Cells Not Reportable Ovalocytes Not Reportable Helmet Cells Not Reportable Shrestha-Calab[place] Bodies Not Reportable [place] Rings Not Reportable Amanda Cells Not Reportable Bite Cells Not Reportable Crenated Cell Not Reportable Elliptocytes Not Reportable Acanthocytes (Spur) Not Reportable Rouleaux Not Reportable Hemoglobin C Crystals Not Reportable Schistocytes Not Reportable Malaria parasites Not Reportable Macho Bodies Not Reportable Hem Pathologist Commnt No PT INR APTT Sodium Potassium Chloride Carbon Dioxide Anion Gap BUN Creatinine Estimated GFR BUN/Creatinine Ratio Glucose POC Glucose 106 H Lactic Acid Calcium Total Bilirubin AST ALT Alkaline Phosphatase Ammonia Total Protein Albumin Albumin/Globulin Ratio Urine Color [place] Urine Turbidity Slightly-cloudy Urine pH 5.0 Ur Specific [place] 1.015 Urine Protein 100 mg/dl Urine Glucose (UA) Neg Urine Ketones Tr Urine Blood Mod Urine Nitrite Neg Urine Bilirubin Neg Urine Urobilinogen 4.0 Ur Leukocyte Esterase Tr Urine WBC (Auto) 27.0 H Urine RBC (Auto) 3.0 U Epithel Cells (Auto) < 1.0 Urine Bacteria (Auto) 1+ Hyaline Casts 41 Granular Casts 4 Urine Mucus 1+ Blood Type Antibody Screen 01/01/19 01/01/19 01/01/19 21:25 21:25 21:25 WBC RBC Hgb Hct MCV MCH MCHC RDW Plt Count Add Manual Diff Total Counted Seg Neutrophils % Seg Neuts % (Manual) Band Neutrophils % Lymphocytes % (Manual) Reactive Lymphs % (Man) Monocytes % (Manual) Eosinophils % (Manual) Basophils % (Manual) Metamyelocytes % Myelocytes % Promyelocytes % Blast Cells % Nucleated RBC % Seg Neutrophils # Man Band Neutrophils # Lymphocytes # (Manual) Abs React Lymphs (Man) Monocytes # (Manual) Eosinophils # (Manual) Basophils # (Manual) Metamyelocytes # Myelocytes # Promyelocytes # Blast Cells # WBC Morphology Hypersegmented Neuts Hyposegmented Neuts Hypogranular Neuts Smudge Cells Toxic Granulation Toxic Vacuolation Dohle Bodies Pelger-Huet Anomaly Korin Rods Platelet Estimate Clumped Platelets Plt Clumps, EDTA Large Platelets Giant Platelets Platelet Satelliting Plt Morphology Comment RBC Morphology Dimorphic RBCs Polychromasia Hypochromasia Poikilocytosis Anisocytosis Microcytosis Macrocytosis Spherocytes Pappenheimer Bodies Sickle Cells Target Cells Tear Drop Cells Ovalocytes Helmet Cells Shrestha-[place] Bodies [place] Rings Amanda Cells Bite Cells Crenated Cell Elliptocytes Acanthocytes (Spur) Rouleaux Hemoglobin C Crystals Schistocytes Malaria parasites Macho Bodies Hem Pathologist Commnt PT INR APTT 31.1 Sodium 124 L Potassium 3.9 Chloride 80.3 L Carbon Dioxide 21 L Anion Gap 27 BUN 25 H Creatinine 1.7 H Estimated GFR 49 BUN/Creatinine Ratio 15 Glucose 117 H POC Glucose Lactic Acid 3.50 H* Calcium 8.7 Total Bilirubin 2.40 H AST 200 H ALT 49 Alkaline Phosphatase 63 Ammonia Total Protein 6.7 Albumin 2.6 L Albumin/Globulin Ratio 0.6 Urine Color Urine Turbidity Urine pH Ur Specific [place] Urine Protein Urine Glucose (UA) Urine Ketones Urine Blood Urine Nitrite Urine Bilirubin Urine Urobilinogen Ur Leukocyte Esterase Urine WBC (Auto) Urine RBC (Auto) U Epithel Cells (Auto) Urine Bacteria (Auto) Hyaline Casts Granular Casts Urine Mucus Blood Type Antibody Screen 01/01/19 01/01/19 01/01/19 21:25 22:26 23:23 WBC RBC Hgb Hct MCV MCH MCHC RDW Plt Count Add Manual Diff Total Counted Seg Neutrophils % Seg Neuts % (Manual) Band Neutrophils % Lymphocytes % (Manual) Reactive Lymphs % (Man) Monocytes % (Manual) Eosinophils % (Manual) Basophils % (Manual) Metamyelocytes % Myelocytes % Promyelocytes % Blast Cells % Nucleated RBC % Seg Neutrophils # Man Band Neutrophils # Lymphocytes # (Manual) Abs React Lymphs (Man) Monocytes # (Manual) Eosinophils # (Manual) Basophils # (Manual) Metamyelocytes # Myelocytes # Promyelocytes # Blast Cells # WBC Morphology Hypersegmented Neuts Hyposegmented Neuts Hypogranular Neuts Smudge Cells Toxic Granulation Toxic Vacuolation Dohle Bodies Pelger-Huet Anomaly Korin Rods Platelet Estimate Clumped Platelets Plt Clumps, EDTA Large Platelets Giant Platelets Platelet Satelliting Plt Morphology Comment RBC Morphology Dimorphic RBCs Polychromasia Hypochromasia Poikilocytosis Anisocytosis Microcytosis Macrocytosis Spherocytes Pappenheimer Bodies Sickle Cells Target Cells Tear Drop Cells Ovalocytes Helmet Cells Shrestha-[place] Bodies [place] Rings [place] Cells Bite Cells Crenated Cell Elliptocytes Acanthocytes (Spur) Rouleaux Hemoglobin C Crystals Schistocytes Malaria parasites Macho Bodies Hem Pathologist Commnt PT 16.7 H INR 1.27 H APTT Sodium Potassium Chloride Carbon Dioxide Anion Gap BUN Creatinine Estimated GFR BUN/Creatinine Ratio Glucose POC Glucose Lactic Acid 2.80 H* 2.10 H* Calcium Total Bilirubin AST ALT Alkaline Phosphatase Ammonia Total Protein Albumin Albumin/Globulin Ratio Urine Color Urine Turbidity Urine pH Ur Specific [place] Urine Protein Urine Glucose (UA) Urine Ketones Urine Blood Urine Nitrite Urine Bilirubin Urine Urobilinogen Ur Leukocyte Esterase Urine WBC (Auto) Urine RBC (Auto) U Epithel Cells (Auto) Urine Bacteria (Auto) Hyaline Casts Granular Casts Urine Mucus Blood Type Antibody Screen 01/01/19 01/02/19 01/02/19 23:23 04:29 04:29 WBC RBC Hgb Hct MCV MCH MCHC RDW Plt Count Add Manual Diff Total Counted Seg Neutrophils % Seg Neuts % (Manual) Band Neutrophils % Lymphocytes % (Manual) Reactive Lymphs % (Man) Monocytes % (Manual) Eosinophils % (Manual) Basophils % (Manual) Metamyelocytes % Myelocytes % Promyelocytes % Blast Cells % Nucleated RBC % Seg Neutrophils # Man Band Neutrophils # Lymphocytes # (Manual) Abs React Lymphs (Man) Monocytes # (Manual) Eosinophils # (Manual) Basophils # (Manual) Metamyelocytes # Myelocytes # Promyelocytes # Blast Cells # WBC Morphology Hypersegmented Neuts Hyposegmented Neuts Hypogranular Neuts Smudge Cells Toxic Granulation Toxic Vacuolation Dohle Bodies Pelger-Huet Anomaly Korin Rods Platelet Estimate Clumped Platelets Plt Clumps, EDTA Large Platelets Giant Platelets Platelet Satelliting Plt Morphology Comment RBC Morphology Dimorphic RBCs Polychromasia Hypochromasia Poikilocytosis Anisocytosis Microcytosis Macrocytosis Spherocytes Pappenheimer Bodies Sickle Cells Target Cells Tear Drop Cells Ovalocytes Helmet Cells Shrestha-[place] Bodies [place] Rings [place] Cells Bite Cells Crenated Cell Elliptocytes Acanthocytes (Spur) Rouleaux Hemoglobin C Crystals Schistocytes Malaria parasites Macho Bodies Hem Pathologist Commnt PT INR APTT Sodium 124 L Potassium 4.1 Chloride 86.0 L Carbon Dioxide 17 L Anion Gap 25 BUN 26 H Creatinine 1.3 Estimated GFR > 60 BUN/Creatinine Ratio 20 Glucose 104 H POC Glucose Lactic Acid 2.30 H* Calcium 7.8 L Total Bilirubin AST ALT Alkaline Phosphatase Ammonia 49.0 Total Protein Albumin Albumin/Globulin Ratio Urine Color Urine Turbidity Urine pH Ur Specific [place] Urine Protein Urine Glucose (UA) Urine Ketones Urine Blood Urine Nitrite Urine Bilirubin Urine Urobilinogen Ur Leukocyte Esterase Urine WBC (Auto) Urine RBC (Auto) U Epithel Cells (Auto) Urine Bacteria (Auto) Hyaline Casts Granular Casts Urine Mucus Blood Type Antibody Screen 01/02/19 01/02/19 01/02/19 08:07 08:19 08:19 WBC RBC Hgb 11.3 L Hct 32.4 L MCV MCH MCHC RDW Plt Count Add Manual Diff Total Counted Seg Neutrophils % Seg Neuts % (Manual) Band Neutrophils % Lymphocytes % (Manual) Reactive Lymphs % (Man) Monocytes % (Manual) Eosinophils % (Manual) Basophils % (Manual) Metamyelocytes % Myelocytes % Promyelocytes % Blast Cells % Nucleated RBC % Seg Neutrophils # Man Band Neutrophils # Lymphocytes # (Manual) Abs React Lymphs (Man) Monocytes # (Manual) Eosinophils # (Manual) Basophils # (Manual) Metamyelocytes # Myelocytes # Promyelocytes # Blast Cells # WBC Morphology Hypersegmented Neuts Hyposegmented Neuts Hypogranular Neuts Smudge Cells Toxic Granulation Toxic Vacuolation Dohle Bodies Pelger-Huet Anomaly Korin Rods Platelet Estimate Clumped Platelets Plt Clumps, EDTA Large Platelets Giant Platelets Platelet Satelliting Plt Morphology Comment RBC Morphology Dimorphic RBCs Polychromasia Hypochromasia Poikilocytosis Anisocytosis Microcytosis Macrocytosis Spherocytes Pappenheimer Bodies Sickle Cells Target Cells Tear Drop Cells Ovalocytes Helmet Cells Shrestha-Calab[place] Bodies [place] Rings Amanda Cells Bite Cells Crenated Cell Elliptocytes Acanthocytes (Spur) Rouleaux Hemoglobin C Crystals Schistocytes Malaria parasites Macho Bodies Hem Pathologist Commnt PT INR APTT Sodium Potassium Chloride Carbon Dioxide Anion Gap BUN Creatinine Estimated GFR BUN/Creatinine Ratio Glucose POC Glucose 109 H Lactic Acid Calcium Total Bilirubin AST ALT Alkaline Phosphatase Ammonia Total Protein Albumin Albumin/Globulin Ratio Urine Color Urine Turbidity Urine pH Ur Specific [place] Urine Protein Urine Glucose (UA) Urine Ketones Urine Blood Urine Nitrite Urine Bilirubin Urine Urobilinogen Ur Leukocyte Esterase Urine WBC (Auto) Urine RBC (Auto) U Epithel Cells (Auto) Urine Bacteria (Auto) Hyaline Casts Granular Casts Urine Mucus Blood Type B POSITIVE Antibody Screen Negative 01/02/19 01/02/19 08:19 11:46 WBC RBC Hgb 10.6 L Hct 30.8 L MCV MCH MCHC RDW Plt Count Add Manual Diff Total Counted Seg Neutrophils % Seg Neuts % (Manual) Band Neutrophils % Lymphocytes % (Manual) Reactive Lymphs % (Man) Monocytes % (Manual) Eosinophils % (Manual) Basophils % (Manual) Metamyelocytes % Myelocytes % Promyelocytes % Blast Cells % Nucleated RBC % Seg Neutrophils # Man Band Neutrophils # Lymphocytes # (Manual) Abs React Lymphs (Man) Monocytes # (Manual) Eosinophils # (Manual) Basophils # (Manual) Metamyelocytes # Myelocytes # Promyelocytes # Blast Cells # WBC Morphology Hypersegmented Neuts Hyposegmented Neuts Hypogranular Neuts Smudge Cells Toxic Granulation Toxic Vacuolation Dohle Bodies Pelger-Huet Anomaly Korin Rods Platelet Estimate Clumped Platelets Plt Clumps, EDTA Large Platelets Giant Platelets Platelet Satelliting Plt Morphology Comment RBC Morphology Dimorphic RBCs Polychromasia Hypochromasia Poikilocytosis Anisocytosis Microcytosis Macrocytosis Spherocytes Pappenheimer Bodies Sickle Cells Target Cells Tear Drop Cells Ovalocytes Helmet Cells Shrestha-[place] Bodies [place] Rings Amanda Cells Bite Cells Crenated Cell Elliptocytes Acanthocytes (Spur) Rouleaux Hemoglobin C Crystals Schistocytes Malaria parasites Macho Bodies Hem Pathologist Commnt PT INR APTT Sodium Potassium Chloride Carbon Dioxide Anion Gap BUN Creatinine Estimated GFR BUN/Creatinine Ratio Glucose POC Glucose Lactic Acid 1.80 Calcium Total Bilirubin AST ALT Alkaline Phosphatase Ammonia Total Protein Albumin Albumin/Globulin Ratio Urine Color Urine Turbidity Urine pH Ur Specific [place] Urine Protein Urine Glucose (UA) Urine Ketones Urine Blood Urine Nitrite Urine Bilirubin Urine Urobilinogen Ur Leukocyte Esterase Urine WBC (Auto) Urine RBC (Auto) U Epithel Cells (Auto) Urine Bacteria (Auto) Hyaline Casts Granular Casts Urine Mucus Blood Type Antibody Screen - Imaging CT Scan: report reviewed (Report not in EMR but paper copy in the chart. Mainly showed small liver consistent with cirrhosis, fluid in the esophagus likely due to reflux, small fecal debri in the colon, significant ascites, which made evaluation of bowel difficult) Assessment and Plan This is a 68 yo AAM with pmh of cirrhosis admitted overnight after found confused by his friends. Patient is confused and not able to give much history. Per chart review, patient stated that he was having nosebleed and also had black stuff in his mouth. He has had worsening abdominal distension. - Patient Problems (1) Altered mental status Current Visit: Yes Status: Acute Plan to address problem: May be due to metabolic encephalopathy as well as hepatic encephalopathy in the setting of sepsis, hyponatremia, and decompensated cirrhosis. - maintaining airway. - responds to verbal stimuli and follows commands but unable to answer questions. - supportive care and management for sepsis - recommend lactulose TID (2) Ascites Current Visit: Yes Status: Acute Plan to address problem: Likely 2/2 cirrhosis. - Paracentesis ordered and likely to be done tomorrow. - no diuretics given sepsis and requiring pressors. - please send cell count, albumin, protein, culture and cytology. (3) Cirrhosis Current Visit: Yes Status: Acute Qualifiers: Ascites presence: with ascites Plan to address problem: Cirrhosis: unclear etiology. Will need to obtain further history from family. CT abdomen with small liver c/w cirrhosis. - decompensation with ascites, HE, and hyponatremia. - check hepatitis panel, iron studies. - monitor CMP (4) Sepsis Current Visit: Yes Status: Acute Plan to address problem: Sepsis: requiring pressors with levophed. - UA positive - possible SBP - currently on empiric antibiotics with vancomycin and cefepime. - sepsis management per primary team. (5) Anemia Current Visit: Yes Status: Acute Plan to address problem: Anemia: H/H trending down since admission. Report of vomiting coffee ground material. No episode of vomiting today. - concern for GI bleed. Rec: - start PPI IV bid and octreotide drip - keep NPO - monitor H/H serially and transfuse with Hgb goal >7.
--- NOTE | 2019-01-02 13:32 | Consultation ---
History of Present Illness Consult date: 01/02/19 Reason for consult: other (ICU admission, sepsis, chronic liver disease, AMS , ascites .) History of present illness: Called to evaluate patient after ICU admission with possible sepsis in the context of CLD, hepatitis C. Per chart notes, the patient is admitted with "past medical history of cirrhosis admitted overnight after found confused by his friends. Patient is confused and not able to give much history. Per chart review, patient stated that he was having nosebleed and also had black stuff in his mouth. He has had worsening abdominal distension. In the ED, he was noted to be hypotensive and had distended abdomen. Started on levophed and admitted to ICU. Paracentesis ordered but not done yet and likely to be done tomorrow". Patient was seen already by [facility] consultant., Comments regarding abdominal CT scan noted. Also, per notes, patient's ex-, patient has been on raw food diet and then special diet with fasting. Past History Past Medical History: liver disease, other (hepatitis c) Social history: alcohol abuse Family history: hypertension Medications and Allergies Allergies Allergy/AdvReac Type Severity Reaction Status Date / Time No Known Allergies Allergy Verified 01/01/19 23:23 Active Meds: Active Medications Norepinephrine (Levophed Drip 4 Mg/Ns 250 Ml) 4 mg in 250 mls @ 7.5 mls/hr IV TITR LORI; Protocol Last Titration: 01/02/19 11:44 Dose: 2 mcg/min, 7.5 mls/hr Documented by: Vancomycin HCl 1,500 mg/ (Sodium Chloride) 530 mls @ 333.333 mls/hr IV Q24H LORI Cefepime HCl (Maxipime/Ns 2 Gm/100 Ml) 2 gm in 100 mls @ 200 mls/hr IV Q12HR LORI Last Admin: 01/02/19 10:04 Dose: 200 mls/hr Documented by: Dextrose/Sodium Chloride (D5ns) 1,000 mls @ 100 mls/hr IV DIRECT LORI Last Admin: 01/02/19 09:34 Dose: 100 mls/hr Documented by: Ondansetron HCl (Zofran) 4 mg IV Q8H PRN PRN Reason: Nausea And Vomiting Last Admin: 01/02/19 11:45 Dose: 4 mg Documented by: Review of Systems Constitutional: weight gain Cardiovascular: orthopnea, dyspnea on exertion Gastrointestinal: nausea, vomiting (1 prior to admission), melena (1 prior to admission), no coffee ground emesis, no BRBPR Physical Examination Vital signs: Vital Signs Pulse Resp BP Pulse Ox 85 20 69/52 85 01/01/19 20:50 01/01/19 20:50 01/01/19 20:50 01/01/19 20:50 General appearance: no acute distress, other Eyes: icteric ENT: oropharynx moist Neck: supple, no JVD Effort: normal Ascultation: Bilateral: clear, diminished breath sounds (Limited excursions with associated ascites) Gastrointestinal: normoactive bowel sounds, other (ascites, prominent) Integumentary: normal Extremities: no cyanosis, edema Musculoskeletal: no deformities other (somnolent but able to follow most of my questions. Appears to be oriented in place and partially in time) mood appropriate Results - Laboratory Findings CBC and BMP: 01/02/19 11:46 01/02/19 04:29 PT/INR, D-dimer PT 16.7 Sec. (12.2-14.9) H 01/01/19 21:25 INR 1.27 (0.87-1.13) H 01/01/19 21:25 Abnormal lab findings: Abnormal Labs 01/01/19 01/01/19 01/01/19 02:22 21:16 21:25 WBC 14.9 H Hgb Hct MCHC 35 H RDW 16.1 H Lymphocytes % (Manual) 2.0 L Seg Neutrophils # Man 10.1 H Lymphocytes # (Manual) 0.3 L PT INR Sodium Chloride Carbon Dioxide BUN Creatinine Glucose POC Glucose 106 H Lactic Acid Calcium Total Bilirubin AST Albumin Urine WBC (Auto) 27.0 H 01/01/19 01/01/19 01/01/19 21:25 21:25 21:25 WBC Hgb Hct MCHC RDW Lymphocytes % (Manual) Seg Neutrophils # Man Lymphocytes # (Manual) PT 16.7 H INR 1.27 H Sodium 124 L Chloride 80.3 L Carbon Dioxide 21 L BUN 25 H Creatinine 1.7 H Glucose 117 H POC Glucose Lactic Acid 3.50 H* Calcium Total Bilirubin 2.40 H AST 200 H Albumin 2.6 L Urine WBC (Auto) 01/01/19 01/01/19 01/02/19 22:26 23:23 04:29 WBC Hgb Hct MCHC RDW Lymphocytes % (Manual) Seg Neutrophils # Man Lymphocytes # (Manual) PT INR Sodium Chloride Carbon Dioxide BUN Creatinine Glucose POC Glucose Lactic Acid 2.80 H* 2.10 H* 2.30 H* Calcium Total Bilirubin AST Albumin Urine WBC (Auto) 01/02/19 01/02/19 01/02/19 04:29 08:07 08:19 WBC Hgb 11.3 L Hct 32.4 L MCHC RDW Lymphocytes % (Manual) Seg Neutrophils # Man Lymphocytes # (Manual) PT INR Sodium 124 L Chloride 86.0 L Carbon Dioxide 17 L BUN 26 H Creatinine Glucose 104 H POC Glucose 109 H Lactic Acid Calcium 7.8 L Total Bilirubin AST Albumin Urine WBC (Auto) 01/02/19 11:46 WBC Hgb 10.6 L Hct 30.8 L MCHC RDW Lymphocytes % (Manual) Seg Neutrophils # Man Lymphocytes # (Manual) PT INR Sodium Chloride Carbon Dioxide BUN Creatinine Glucose POC Glucose Lactic Acid Calcium Total Bilirubin AST Albumin Urine WBC (Auto) Assessment and Plan Sepsis. Possibly severe with hypotension. Source not clear, SBP a consideration Hypotension. Possibly multifactorial including sepsis, CLD with hypovolemia, hypoalbuminemia Possible melena with GI bleeding Hepatitis C by history Anemia Acute kidney injury Recommendations Serial BP monitoring Keep MAP > 65 Monitor UO, keep > 30 cc/ hr Serial lactate levels elevated initially but improving. NSS bolus 500 cc as needed to keep MAP > 65 or to max. of 2 L PRBC if Hgb < 7 monitor for any bleeding Will initiate also Albumin replacement Paracentesis for possible SBP evaluation Check cultures continue antibiotics Consider ID consult Get official copies of head CT scan PPI IV bid and octreotide drip, per GI recommendations. NPO No family available for case discussion. Discuss all findings with the patient detail. All questions answered. Critical care time was 45 minutes of [id number] evaluation and coordination of care
[2019-01-02] MEDS: ALBURX 25% (ALBUMIN) IV SCH (13:52)
[2019-01-02] MEDS ORDERED: CEPHULAC PO SCH (14:00)
[2019-01-02] MEDS: PROTONIX 80 MG in NACL 0.9% 100 ML IV SCH (15:20)
[2019-01-02] MEDS: SandoSTATIN 500 MCG in NACL 0.9% 100 ML IV SCH (15:20)
[2019-01-02 15:40] LABS: Albumin 2.6 g/dL (3.9-5)
[2019-01-02 15:50] LABS: Hepatitis B Surface Antigen Non-Reactive (Negative); Hepatitis C Virus Antibody Reactive (NonReactive)
[2019-01-02] MEDS ORDERED: CEPHULAC PR ONE (16:00)
[2019-01-02 18:27] LABS: Hematocrit 26.2 % (35.5-45.6); Hemoglobin 9.1 gm/dl (11.8-15.2)
[2019-01-02] MEDS: LEVOPHED DRIP 4 MG/NS 250 ML 4 MG/250 ML BAG IV SCH (20:08)
[2019-01-02] MEDS: VANCOMYCIN 1,500 MG in NACL 0.9% 500 ML 500 ML IV SCH (20:13)
[2019-01-03 01:18] LABS: Hematocrit 26.1 % (35.5-45.6); Hemoglobin 9.1 gm/dl (11.8-15.2)
[2019-01-03] MEDS: PROTONIX 80 MG in NACL 0.9% 100 ML IV SCH ×3 (01:30→23:33)
[2019-01-03] MEDS: ALBURX 25% (ALBUMIN) IV SCH ×3 (01:32→23:33)
[2019-01-03 05:33] LABS: Basophils % (Auto) 0.1 % (0.0-1.8); Hematocrit 24.1 % (35.5-45.6); Hemoglobin 8.4 gm/dl (11.8-15.2); Lymphocytes # (Auto) 0.8 K/mm3 (1.2-5.4); Lymphocytes % (Auto) 10.6 % (13.4-35.0); Mean Corpuscular HGB Conc 35 % (32-34); Mean Corpuscular Volume 91 fl (84-94); Monocytes # (Auto) 0.8 K/mm3 (0.0-0.8); Monocytes % (Auto) 11.3 % (0.0-7.3); Red Blood Count 2.66 M/mm3 (3.65-5.03); Red Cell Distribution Width 16.3 % (13.2-15.2)
[2019-01-03 05:42] LABS: Platelet Count 101 K/mm3 (140-440)
[2019-01-03 05:50] LABS: Albumin 2.5 g/dL (3.9-5); Calcium 7.7 mg/dL (8.4-10.2)
[2019-01-03] MEDS ORDERED: NACL 0.9% 500 ML 500 ML IV ONE (07:26)
[2019-01-03 08:25] LABS: INR 1.43 (0.87-1.13)
--- NOTE | 2019-01-03 08:37 | Gastroenterology Progress Note ---
Assessment and Plan This is a 68 yo AAM with pmh of cirrhosis admitted overnight after found confused by his friends. Patient is confused and not able to give much history. Per chart review, patient stated that he was having nosebleed and also had black stuff in his mouth. He has had worsening abdominal distension. - Patient Problems (1) Altered mental status Current Visit: Yes Status: Acute Plan to address problem: May be due to metabolic encephalopathy as well as hepatic encephalopathy in the setting of sepsis, hyponatremia, and decompensated cirrhosis. - maintaining airway. - responds to verbal stimuli and follows commands but unable to answer questions. - supportive care and management for sepsis - continue with lactulose enemas (2) Ascites Current Visit: Yes Status: Acute Plan to address problem: Likely 2/2 cirrhosis. - Paracentesis ordered and to be done this morning - no diuretics given sepsis and requiring pressors. - please send cell count, albumin, protein, culture and cytology. (3) Cirrhosis Current Visit: Yes Status: Acute Qualifiers: Ascites presence: with ascites Plan to address problem: Cirrhosis: unclear etiology. Will need to obtain further history from family. CT abdomen with small liver c/w cirrhosis. - decompensation with ascites, HE, and hyponatremia. - hepatitis panel positive for HCV antibody - monitor CMP and INR (4) Sepsis Current Visit: Yes Status: Acute Plan to address problem: Sepsis: requiring pressors with levophed. - UA positive - possible SBP - currently on empiric antibiotics with vancomycin and cefepime. - sepsis management per primary team. (5) Anemia Current Visit: Yes Status: Acute Plan to address problem: Anemia: H/H trending down since admission. Report of vomiting coffee ground material. Hematemesis overnight. Concern for upper GI bleed with possible esophageal varices. Rec: - continue with PPI IV drip and octreotide drip - keep NPO - monitor H/H serially and transfuse with Hgb goal >7. - will plan for EGD. will need intubation prior to endoscopy given risks of aspiration. Will give reglan - discussed with anesthesia, primary team, and family (6) GI bleed Current Visit: Yes Status: Acute Subjective Date of service: 01/03/19 Interval history: Patient had a few episode of spitting up coffee ground material. Received lactulose enema but no bowel movement. Objective - Constitutional Vitals: Temp Pulse Resp BP Pulse Ox 97.5 F L 102 H 25 H 101/65 100 01/03/19 04:00 01/03/19 07:51 01/03/19 07:51 01/03/19 07:51 01/03/19 08:20 General appearance: no acute distress - EENT Eyes: EOM intact - Neck Neck: supple - Respiratory Respiratory effort: normal Respiratory: bilateral: CTA - Cardiovascular Rhythm: regular Heart Sounds: Present: S1 & S2 - Gastrointestinal General gastrointestinal: Present: soft, non-distended, distended - Integumentary Integumentary: Present: warm, dry - Neurologic Neurological: disoriented - Labs CBC & Chem 7: 01/03/19 05:05 01/03/19 05:05 Labs: Laboratory Results - last 24 hr 01/02/19 01/02/19 01/02/19 08:19 08:19 08:19 WBC RBC Hgb 11.3 L Hct 32.4 L MCV MCH MCHC RDW Plt Count Lymph % (Auto) Knox % (Auto) Eos % (Auto) Baso % (Auto) Lymph # Knox # Eos # Baso # Seg Neutrophils % Seg Neutrophils # PT INR Sodium Potassium Chloride Carbon Dioxide Anion Gap BUN Creatinine Estimated GFR BUN/Creatinine Ratio Glucose Lactic Acid 1.80 Calcium Iron TIBC Ferritin Total Bilirubin Direct Bilirubin Indirect Bilirubin AST ALT Alkaline Phosphatase Total Protein Albumin Albumin/Globulin Ratio Hepatitis A IgM Ab Hep Bs Antigen Hep B Core IgM Ab Hepatitis C Antibody Blood Type B POSITIVE Antibody Screen Negative Crossmatch See Detail 01/02/19 01/02/19 01/02/19 11:46 14:20 14:20 WBC RBC Hgb 10.6 L Hct 30.8 L MCV MCH MCHC RDW Plt Count Lymph % (Auto) Knox % (Auto) Eos % (Auto) Baso % (Auto) Lymph # Knox # Eos # Baso # Seg Neutrophils % Seg Neutrophils # PT INR Sodium Potassium Chloride Carbon Dioxide Anion Gap BUN Creatinine Estimated GFR BUN/Creatinine Ratio Glucose Lactic Acid Calcium Iron 77 TIBC 160 L Ferritin 1071.0 H Total Bilirubin 1.70 H Direct Bilirubin 1.0 H Indirect Bilirubin 0.7 AST 132 H ALT 40 Alkaline Phosphatase 48 Total Protein 5.6 L Albumin 2.6 L Albumin/Globulin Ratio 0.9 Hepatitis A IgM Ab Hep Bs Antigen Hep B Core IgM Ab Hepatitis C Antibody Blood Type Antibody Screen Crossmatch 01/02/19 01/02/19 01/03/19 14:20 18:08 00:45 WBC RBC Hgb 9.1 L 9.1 L Hct 26.2 L 26.1 L MCV MCH MCHC RDW Plt Count Lymph % (Auto) Knox % (Auto) Eos % (Auto) Baso % (Auto) Lymph # Knox # Eos # Baso # Seg Neutrophils % Seg Neutrophils # PT INR Sodium Potassium Chloride Carbon Dioxide Anion Gap BUN Creatinine Estimated GFR BUN/Creatinine Ratio Glucose Lactic Acid Calcium Iron TIBC Ferritin Total Bilirubin Direct Bilirubin Indirect Bilirubin AST ALT Alkaline Phosphatase Total Protein Albumin Albumin/Globulin Ratio Hepatitis A IgM Ab Non-reactive Hep Bs Antigen Non-reactive Hep B Core IgM Ab Non-reactive Hepatitis C Antibody Reactive A Blood Type Antibody Screen Crossmatch 01/03/19 01/03/19 01/03/19 05:05 05:05 08:02 WBC 7.2 RBC 2.66 L Hgb 8.4 L Hct 24.1 L MCV 91 MCH 32 MCHC 35 H RDW 16.3 H Plt Count 101 L Lymph % (Auto) 10.6 L Knox % (Auto) 11.3 H Eos % (Auto) 0.0 Baso % (Auto) 0.1 Lymph # 0.8 L Knox # 0.8 Eos # 0.0 Baso # 0.0 Seg Neutrophils % 78.0 H Seg Neutrophils # 5.6 PT 18.4 H INR 1.43 H Sodium 132 L D Potassium 3.2 L D Chloride 92.1 L Carbon Dioxide 25 D Anion Gap 18 BUN 34 H Creatinine 1.8 H Estimated GFR 46 BUN/Creatinine Ratio 19 Glucose 163 H Lactic Acid Calcium 7.7 L Iron TIBC Ferritin Total Bilirubin 1.70 H Direct Bilirubin Indirect Bilirubin AST 93 H ALT 33 Alkaline Phosphatase 37 Total Protein 5.1 L Albumin 2.5 L Albumin/Globulin Ratio 1.0 Hepatitis A IgM Ab Hep Bs Antigen Hep B Core IgM Ab Hepatitis C Antibody Blood Type Antibody Screen Crossmatch - Imaging CT scan: report reviewed
--- NOTE | 2019-01-03 08:43 | Anesthesia Consultation ---
Anesthesia Consult and Med Hx Date of service: 01/03/19 - Airway Anesthetic Teeth Evaluation: Poor (multiple martine) ROM Head & Neck: Adequate Mental/Hyoid Distance: Adequate Mallampati Class: Class II Intubation Access Assessment: Probably Good - Pre-Operative Health Status ASA Pre-Surgery Classification: ASA4 Proposed Anesthetic Plan: General - Pulmonary Hx Smoking: Yes Hx Respiratory Symptoms: Yes (pleural effusion) - Cardiovascular System Hx Hypertension: No (low BP, off the pressors) - Central Nervous System Hx Psychiatric Problems: Yes (altered mental status) - Gastrointestinal Hx Ulcer: Yes (GI bleed) - Endocrine Hx Cirrhosis: Yes Hx Liver Disease: Yes (ascitis) - Hematic Hx Anemia: Yes
--- NOTE | 2019-01-03 08:48 | Anesthesia Day of Surgery ---
Anesthesia Day of Surgery - Day of Surgery Patient Examined: Yes Patient H&P Reviewed: Yes Patient is NPO: Yes
[2019-01-03] MEDS ORDERED: REGLAN IV ONE (09:00)
[2019-01-03] MEDS ORDERED: NACL 0.9% 1000 ML 1,000 ML IV SCH (09:00)
[2019-01-03] MEDS: KCL 10MEQ/100ML 10 MEQ/100 ML BAG IV SCH ×4 (10:00→17:18)
--- NOTE | 2019-01-03 10:02 | Progress Note ---
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 Absent: respiratory distress - Cardiovascular Cardiovascular Exam: Present: regular rate, normal rhythm - GI/Abdominal GI/Abdominal exam: Present: distended. Absent: tenderness - Extremities Exam Extremities exam: Present: other (2+ pitting edema bilateral lower extremities) - Neurological Exam Neurological exam: Present: alert, altered - Psychiatric Psychiatric exam: Present: normal affect, normal mood - Skin Skin exam: Present: warm, dry, intact, normal color - Vital Signs Vital signs: Vital Signs - 12hr 01/02/19 01/02/19 01/02/19 22:11 22:21 22:30 Temperature Pulse Rate 106 H 108 H 107 H Pulse Rate [ From Monitor] Respiratory 22 20 20 Rate Blood Pressure 83/61 92/62 95/61 O2 Sat by Pulse 100 99 100 Oximetry 01/02/19 01/02/19 01/02/19 22:41 22:51 23:00 Temperature Pulse Rate 108 H 109 H 109 H Pulse Rate [ From Monitor] Respiratory 21 21 21 Rate Blood Pressure 95/61 94/60 91/60 O2 Sat by Pulse 100 100 100 Oximetry 01/02/19 01/02/19 01/02/19 23:11 23:21 23:30 Temperature Pulse Rate 107 H 107 H 109 H Pulse Rate [ From Monitor] Respiratory 21 22 25 H Rate Blood Pressure 91/60 91/60 91/56 O2 Sat by Pulse 100 100 100 Oximetry 01/02/19 01/02/19 01/02/19 23:41 23:51 23:57 Temperature Pulse Rate 108 H 112 H 107 H Pulse Rate [ From Monitor] Respiratory 22 19 21 Rate Blood Pressure 91/56 87/59 87/59 O2 Sat by Pulse 99 90 100 Oximetry 01/03/19 01/03/19 01/03/19 00:00 00:09 00:11 Temperature 97.2 F L Pulse Rate 107 H 109 H 114 H Pulse Rate [ 102 H From Monitor] Respiratory 25 H 21 17 Rate Blood Pressure 89/62 89/62 89/62 O2 Sat by Pulse 97 99 92 Oximetry 01/03/19 01/03/19 01/03/19 00:21 00:30 00:41 Temperature Pulse Rate 110 H 108 H 108 H Pulse Rate [ From Monitor] Respiratory 21 23 22 Rate Blood Pressure 87/59 92/58 92/58 O2 Sat by Pulse 99 98 100 Oximetry 01/03/19 01/03/19 01/03/19 00:51 01:00 01:11 Temperature Pulse Rate 112 H 110 H 111 H Pulse Rate [ From Monitor] Respiratory 28 H 27 H 27 H Rate Blood Pressure 89/57 87/56 87/56 O2 Sat by Pulse 100 98 98 Oximetry 01/03/19 01/03/19 01/03/19 01:21 01:30 01:41 Temperature Pulse Rate 110 H 108 H 111 H Pulse Rate [ From Monitor] Respiratory 25 H 22 28 H Rate Blood Pressure 91/57 90/56 90/56 O2 Sat by Pulse 99 100 97 Oximetry 01/03/19 01/03/19 01/03/19 01:51 02:00 02:11 Temperature Pulse Rate 110 H 111 H 110 H Pulse Rate [ From Monitor] Respiratory 26 H 25 H 25 H Rate Blood Pressure 90/59 93/57 93/57 O2 Sat by Pulse 99 99 100 Oximetry 01/03/19 01/03/19 01/03/19 02:21 02:30 02:41 Temperature Pulse Rate 113 H 108 H 110 H Pulse Rate [ From Monitor] Respiratory 29 H 22 28 H Rate Blood Pressure 92/60 89/59 89/59 O2 Sat by Pulse 100 99 90 Oximetry 01/03/19 01/03/19 01/03/19 02:51 03:00 03:11 Temperature Pulse Rate 111 H 110 H 106 H Pulse Rate [ From Monitor] Respiratory 31 H 30 H 25 H Rate Blood Pressure 92/64 87/57 87/57 O2 Sat by Pulse 94 94 98 Oximetry 01/03/19 01/03/19 01/03/19 03:21 03:30 03:41 Temperature Pulse Rate 111 H 113 H 111 H Pulse Rate [ From Monitor] Respiratory 31 H 30 H 15 Rate Blood Pressure 91/59 85/57 85/57 O2 Sat by Pulse 96 98 93 Oximetry 01/03/19 01/03/19 01/03/19 03:51 04:00 04:11 Temperature 97.5 F L Pulse Rate 113 H 111 H 110 H Pulse Rate [ 102 H From Monitor] Respiratory 30 H 28 H 29 H Rate Blood Pressure 93/62 87/60 88/60 O2 Sat by Pulse 95 95 98 Oximetry 01/03/19 01/03/19 01/03/19 04:21 04:30 04:41 Temperature Pulse Rate 111 H 111 H 110 H Pulse Rate [ From Monitor] Respiratory 32 H 27 H 29 H Rate Blood Pressure 92/60 93/60 93/60 O2 Sat by Pulse 98 98 96 Oximetry 01/03/19 01/03/19 01/03/19 04:51 05:00 05:11 Temperature Pulse Rate 110 H 109 H 107 H Pulse Rate [ From Monitor] Respiratory 28 H 26 H 28 H Rate Blood Pressure 91/61 94/60 94/60 O2 Sat by Pulse 95 96 97 Oximetry 01/03/19 01/03/19 01/03/19 05:20 05:30 05:40 Temperature Pulse Rate 110 H 107 H 108 H Pulse Rate [ From Monitor] Respiratory 30 H 23 25 H Rate Blood Pressure 92/60 90/60 90/60 O2 Sat by Pulse 97 95 96 Oximetry 01/03/19 01/03/19 01/03/19 05:51 06:00 06:11 Temperature Pulse Rate 108 H 107 H 109 H Pulse Rate [ From Monitor] Respiratory 21 22 23 Rate Blood Pressure 94/59 90/62 90/62 O2 Sat by Pulse 100 99 99 Oximetry 01/03/19 01/03/19 01/03/19 06:21 06:30 06:41 Temperature Pulse Rate 111 H 109 H 108 H Pulse Rate [ From Monitor] Respiratory 30 H 23 29 H Rate Blood Pressure 89/60 93/63 93/63 O2 Sat by Pulse 93 94 90 Oximetry 01/03/19 01/03/19 01/03/19 06:51 07:00 07:11 Temperature Pulse Rate 108 H 105 H 105 H Pulse Rate [ From Monitor] Respiratory 17 30 H 27 H Rate Blood Pressure 91/63 95/65 95/65 O2 Sat by Pulse 96 94 98 Oximetry 01/03/19 01/03/19 01/03/19 07:21 07:30 07:41 Temperature Pulse Rate 104 H 107 H 105 H Pulse Rate [ From Monitor] Respiratory 26 H 28 H 25 H Rate Blood Pressure 98/65 93/65 91/63 O2 Sat by Pulse 97 98 96 Oximetry 01/03/19 01/03/19 01/03/19 07:51 08:00 08:11 Temperature Pulse Rate 102 H 101 H 101 H Pulse Rate [ From Monitor] Respiratory 25 H 19 22 Rate Blood Pressure 101/65 90/65 101/65 O2 Sat by Pulse 86 85 100 Oximetry 01/03/19 01/03/19 01/03/19 08:20 08:21 08:30 Temperature Pulse Rate 101 H 99 H Pulse Rate [ From Monitor] Respiratory 20 20 Rate Blood Pressure 95/65 99/65 O2 Sat by Pulse 100 99 99 Oximetry 01/03/19 01/03/19 01/03/19 08:35 08:41 08:50 Temperature 98.0 F 98.0 F Pulse Rate 96 H 100 H 99 H Pulse Rate [ From Monitor] Respiratory 20 20 22 Rate Blood Pressure 90/67 99/65 92/70 O2 Sat by Pulse 98 100 Oximetry 01/03/19 01/03/19 01/03/19 08:51 09:00 09:11 Temperature Pulse Rate 98 H 103 H 98 H Pulse Rate [ From Monitor] Respiratory 19 19 20 Rate Blood Pressure 89/61 90/67 90/67 O2 Sat by Pulse 100 100 98 Oximetry - Lab 01/03/19 05:05 01/03/19 05:05 Most recent lab results Calcium 7.7 mg/dL (8.4-10.2) L 01/03/19 05:05 Medications & Allergies - Medications Allergies/Adverse Reactions: Allergies No Known Allergies Allergy (Verified 01/01/19 23:23) Active Medications: Generic Name Dose Route Start Last Admin Trade Name Freq PRN Reason Stop Dose Admin Albumin Human 25 gm 01/02/19 14:00 01/03/19 01:32 Alburx 25% (Albumin) IV 01/03/19 22:01 25 gm Q12HR LORI Administration Norepinephrine 4 mg in 250 mls @ 7.5 mls/hr 01/01/19 23:45 01/03/19 00:45 Levophed Drip 4 Mg/Ns 250 Ml IV 0 mcg/min TITR LORI 0 mls/hr Titration Protocol 2 MCG/MIN Vancomycin HCl 1,500 mg/ 530 mls @ 333.333 mls/hr 01/02/19 18:00 01/02/19 20:13 Sodium Chloride IV 333.333 mls/hr Q24H LORI Administration Cefepime HCl 2 gm in 100 mls @ 200 mls/hr 01/02/19 10:00 01/02/19 23:03 Maxipime/Ns 2 Gm/100 Ml IV 200 mls/hr Q12HR LORI Administration Dextrose/Sodium Chloride 1,000 mls @ 100 mls/hr 01/02/19 10:00 01/02/19 20:08 D5ns IV 100 mls/hr DIRECT LORI Administration Octreotide Acetate 500 mcg/ 101 mls @ 5.05 mls/hr 01/02/19 14:00 01/02/19 15:20 Sodium Chloride IV 25 mcg/hr TITR LORI 5.05 mls/hr Administration Protocol 25 MCG/HR Pantoprazole Sodium 80 mg/ 100 mls @ 10 mls/hr 01/02/19 14:00 01/03/19 01:30 Sodium Chloride IV 8 mg/hr DIRECT LORI 10 mls/hr Administration 8 MG/HR Sodium Chloride 1,000 mls @ 50 mls/hr 01/03/19 09:00 Nacl 0.9% 1000 Ml IV DIRECT LORI Potassium Chloride 10 meq in 100 mls @ 100 mls/hr 01/03/19 09:00 Kcl 10meq/100ml IV 01/03/19 12:59 Q1H LORI Ondansetron HCl 4 mg 01/02/19 01:49 01/02/19 11:45 Zofran IV 4 mg Q8H PRN Administration Nausea And Vomiting
[2019-01-03] MEDS: MAXIPIME/NS 2 GM/100 ML 2 GM/100 ML BAG IV SCH ×2 (11:02→22:52)
--- NOTE | 2019-01-03 12:18 | Progress Note ---
Assessment and Plan Assessment and plan: This is a 68 yo AAM with pmh of cirrhosis admitted after found confused by his friends. Patient is confused and not able to give much history. Per chart review, patient stated that he was having nosebleed and also had black stuff in his mouth. He has had worsening abdominal distension. Patient had vomiting of dark blood overnight Altered mental status Metabolic encephalopathy as well as hepatic encephalopathy in the setting of sepsis, hyponatremia, and decompensated cirrhosis. - maintaining airway. - responds to verbal stimuli and follows commands but unable to answer questions. - supportive care and management for sepsis - continue with lactulose enemas Ascites Likely 2/2 cirrhosis. - Paracentesis done and sample sent to lab for cell count, albumin, protein, culture and cytology. - no diuretics given sepsis and requiring pressors. Cirrhosis Cirrhosis: unclear etiology. Will need to obtain further history from family. CT abdomen with small liver c/w cirrhosis. - decompensation with ascites, HE, and hyponatremia. - hepatitis panel positive for HCV antibody - monitor CMP and INR septic shock - requiring pressors with levophed. - UA positive - possible SBP - currently on empiric antibiotics with vancomycin and cefepime. Anemia 2/2 to GI bleed H/H trending down since admission. Report of vomiting coffee ground material. Hematemesis overnight. Concern for upper GI bleed with possible esophageal varices. Patient will be transfused with 2 units of blood Discussed with GI - continue with PPI IV drip and octreotide drip - keep NPO. - GI plan for EGD. Patient need intubation prior to endoscopy given risks of aspiration. Will give reglan The high probability of a clinically significant, sudden or life threatening deterioration of the [GI, Neurology, hematology] system(s) required my full and direct attention, intervention and personal management. The aggregate critical care time was [32] minutes. This time is in addition to time spent performing reported procedures but includes the following: [x] Data Review and interpretation [x] Patient assessment and monitoring of vital signs [x] Documentation [x] Medication orders and management History Interval history: Patient was seen and evaluated this morning, patient open his eyes for commands but not able to communicate. patient is somnolent. He has vomiting of dark blood overnight. Hospitalist Physical - Physical exam Narrative exam: Not in cardiopulmonary distress. The patient appeared well nourished and normally developed. Vital signs as documented. Head exam is unremarkable. No scleral icterus . Neck is without jugular venous distension, thyromegaly, or carotid bruits. Lungs are clear to auscultation. Cardiac exam reveals regular rate and Rhythm. Abdominal exam reveals gross ascites Extremities are nonedematous and both femoral and pedal pulses are normal. 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 - Constitutional Vitals: Temp Pulse Resp BP Pulse Ox 98.0 F 98 H 20 90/67 98 01/03/19 08:50 01/03/19 09:11 01/03/19 09:11 01/03/19 09:11 01/03/19 09:11 Results - Labs CBC & Chem 7: 01/03/19 05:05 01/03/19 05:05 Labs: Laboratory Last Values WBC 7.2 K/mm3 (4.5-11.0) 01/03/19 05:05 RBC 2.66 M/mm3 (3.65-5.03) L 01/03/19 05:05 Hgb 8.4 gm/dl (11.8-15.2) L 01/03/19 05:05 Hct 24.1 % (35.5-45.6) L 01/03/19 05:05 MCV 91 fl (84-94) 01/03/19 05:05 MCH 32 pg (28-32) 01/03/19 05:05 MCHC 35 % (32-34) H 01/03/19 05:05 RDW 16.3 % (13.2-15.2) H 01/03/19 05:05 Plt Count 101 K/mm3 (140-440) L 01/03/19 05:05 Lymph % (Auto) 10.6 % (13.4-35.0) L 01/03/19 05:05 [place] % (Auto) 11.3 % (0.0-7.3) H 01/03/19 05:05 Eos % (Auto) 0.0 % (0.0-4.3) 01/03/19 05:05 Baso % (Auto) 0.1 % (0.0-1.8) 01/03/19 05:05 Lymph # 0.8 K/mm3 (1.2-5.4) L 01/03/19 05:05 [place] # 0.8 K/mm3 (0.0-0.8) 01/03/19 05:05 Eos # 0.0 K/mm3 (0.0-0.4) 01/03/19 05:05 Baso # 0.0 K/mm3 (0.0-0.1) 01/03/19 05:05 Add Manual Diff Complete 01/01/19 21:25 Total Counted 100 01/01/19 21:25 Seg Neutrophils % 78.0 % (40.0-70.0) H 01/03/19 05:05 Seg Neuts % (Manual) 68.0 % (40.0-70.0) 01/01/19 21:25 Band Neutrophils % 28.0 % 01/01/19 21:25 Lymphocytes % (Manual) 2.0 % (13.4-35.0) L 01/01/19 21:25 Reactive Lymphs % (Man) 0 % 01/01/19 21:25 Monocytes % (Manual) 2.0 % (0.0-7.3) 01/01/19 21:25 Eosinophils % (Manual) 0 % (0.0-4.3) 01/01/19 21:25 Basophils % (Manual) 0 % (0.0-1.8) 01/01/19 21:25 Metamyelocytes % 0 % 01/01/19 21:25 Myelocytes % 0 % 01/01/19 21:25 Promyelocytes % 0 % 01/01/19 21:25 Blast Cells % 0 % 01/01/19 21:25 Nucleated RBC % Not Reportable 01/01/19 21:25 Seg Neutrophils # 5.6 K/mm3 (1.8-7.7) 01/03/19 05:05 Seg Neutrophils # Man 10.1 K/mm3 (1.8-7.7) H 01/01/19 21:25 Band Neutrophils # 4.2 K/mm3 01/01/19 21:25 Lymphocytes # (Manual) 0.3 K/mm3 (1.2-5.4) L 01/01/19 21:25 Abs React Lymphs (Man) 0.0 K/mm3 01/01/19 21:25 Monocytes # (Manual) 0.3 K/mm3 (0.0-0.8) 01/01/19 21:25 Eosinophils # (Manual) 0.0 K/mm3 (0.0-0.4) 01/01/19 21:25 Basophils # (Manual) 0.0 K/mm3 (0.0-0.1) 01/01/19 21:25 Metamyelocytes # 0.0 K/mm3 01/01/19 21:25 Myelocytes # 0.0 K/mm3 01/01/19 21:25 Promyelocytes # 0.0 K/mm3 01/01/19 21:25 Blast Cells # 0.0 K/mm3 01/01/19 21:25 WBC Morphology Not Reportable 01/01/19 21:25 Hypersegmented Neuts Not Reportable 01/01/19 21:25 Hyposegmented Neuts Not Reportable 01/01/19 21:25 Hypogranular Neuts Not Reportable 01/01/19 21:25 Smudge Cells Not Reportable 01/01/19 21:25 Toxic Granulation Not Reportable 01/01/19 21:25 Toxic Vacuolation Not Reportable 01/01/19 21:25 Dohle Bodies Not Reportable 01/01/19 21:25 Pelger-Huet Anomaly Not Reportable 01/01/19 21:25 Korin Rods Not Reportable 01/01/19 21:25 Platelet Estimate Consistent w auto 01/01/19 21:25 Clumped Platelets Not Reportable 01/01/19 21:25 Plt Clumps, EDTA Not Reportable 01/01/19 21:25 Large Platelets Not Reportable 01/01/19 21:25 Giant Platelets Not Reportable 01/01/19 21:25 Platelet Satelliting Not Reportable 01/01/19 21:25 Plt Morphology Comment Not Reportable 01/01/19 21:25 RBC Morphology Not Reportable 01/01/19 21:25 Dimorphic RBCs Not Reportable 01/01/19 21:25 Polychromasia Not Reportable 01/01/19 21:25 Hypochromasia Not Reportable 01/01/19 21:25 Poikilocytosis Not Reportable 01/01/19 21:25 Anisocytosis Not Reportable 01/01/19 21:25 Microcytosis Not Reportable 01/01/19 21:25 Macrocytosis 1+ 01/01/19 21:25 Spherocytes Not Reportable 01/01/19 21:25 Pappenheimer Bodies Not Reportable 01/01/19 21:25 Sickle Cells Not Reportable 01/01/19 21:25 Target Cells Few 01/01/19 21:25 Tear Drop Cells Not Reportable 01/01/19 21:25 Ovalocytes Not Reportable 01/01/19 21:25 Helmet Cells Not Reportable 01/01/19 21:25 [place] Bodies Not Reportable 01/01/19 21:25 [place] Rings Not Reportable 01/01/19 21:25 Amanda Cells Not Reportable 01/01/19 21:25 Bite Cells Not Reportable 01/01/19 21:25 Crenated Cell Not Reportable 01/01/19 21:25 Elliptocytes Not Reportable 01/01/19 21:25 Acanthocytes (Spur) Not Reportable 01/01/19 21:25 Rouleaux Not Reportable 01/01/19 21:25 Hemoglobin C Crystals Not Reportable 01/01/19 21:25 Schistocytes Not Reportable 01/01/19 21:25 Malaria parasites Not Reportable 01/01/19 21:25 Macho Bodies Not Reportable 01/01/19 21:25 Hem Pathologist Commnt No 01/01/19 21:25 PT 18.4 Sec. (12.2-14.9) H 01/03/19 08:02 INR 1.43 (0.87-1.13) H 01/03/19 08:02 APTT 31.1 Sec. (24.2-36.6) 01/01/19 21:25 Sodium 132 mmol/L (137-145) L D 01/03/19 05:05 Potassium 3.2 mmol/L (3.6-5.0) L D 01/03/19 05:05 Chloride 92.1 mmol/L (98-107) L 01/03/19 05:05 Carbon Dioxide 25 mmol/L (22-30) D 01/03/19 05:05 Anion Gap 18 mmol/L 01/03/19 05:05 BUN 34 mg/dL (9-20) H 01/03/19 05:05 Creatinine 1.8 mg/dL (0.8-1.5) H 01/03/19 05:05 Estimated GFR 46 ml/min 01/03/19 05:05 BUN/Creatinine Ratio 19 % 01/03/19 05:05 Glucose 163 mg/dL (75-100) H 01/03/19 05:05 POC Glucose 109 (70-105) H 01/02/19 08:07 Lactic Acid 1.80 mmol/L (0.7-2.0) 01/02/19 08:19 Calcium 7.7 mg/dL (8.4-10.2) L 01/03/19 05:05 Iron 77 ug/dL (49-181) 01/02/19 14:20 TIBC 160 mcg/dL (250-450) L 01/02/19 14:20 Ferritin 1071.0 ng/mL (13.0-400.0) H 01/02/19 14:20 Total Bilirubin 1.70 mg/dL (0.1-1.2) H 01/03/19 05:05 Direct Bilirubin 1.0 mg/dL (0-0.2) H 01/02/19 14:20 Indirect Bilirubin 0.7 mg/dL 01/02/19 14:20 AST 93 units/L (5-40) H 01/03/19 05:05 ALT 33 units/L (7-56) 01/03/19 05:05 Alkaline Phosphatase 37 units/L (35-129) 01/03/19 05:05 Ammonia 49.0 umol/L (25-60) 01/01/19 23:23 Total Protein 5.1 g/dL (6.3-8.2) L 01/03/19 05:05 Albumin 2.5 g/dL (3.9-5) L 01/03/19 05:05 Albumin/Globulin Ratio 1.0 % 01/03/19 05:05 Urine Color [place] (Yellow) 01/01/19 02:22 Urine Turbidity Slightly-cloudy (Clear) 01/01/19 02:22 Urine pH 5.0 (5.0-7.0) 01/01/19 02:22 Ur Specific [place] 1.015 (1.003-1.030) 01/01/19 02:22 Urine Protein 100 mg/dl mg/dL (Negative) 01/01/19 02:22 Urine Glucose (UA) Neg mg/dL (Negative) 01/01/19 02:22 Urine Ketones Tr mg/dL (Negative) 01/01/19 02:22 Urine Blood Mod (Negative) 01/01/19 02:22 Urine Nitrite Neg (Negative) 01/01/19 02:22 Urine Bilirubin Neg (Negative) 01/01/19 02:22 Urine Urobilinogen 4.0 mg/dL (<2.0) 01/01/19 02:22 Ur Leukocyte Esterase Tr (Negative) 01/01/19 02:22 Urine WBC (Auto) 27.0 /HPF (0.0-6.0) H 01/01/19 02:22 Urine RBC (Auto) 3.0 /HPF (0.0-6.0) 01/01/19 02:22 U Epithel Cells (Auto) < 1.0 /HPF (0-13.0) 01/01/19 02:22 Urine Bacteria (Auto) 1+ /HPF (Negative) 01/01/19 02:22 Hyaline Casts 41 /LPF 01/01/19 02:22 Granular Casts 4 /LPF 01/01/19 02:22 Urine Mucus 1+ /HPF 01/01/19 02:22 Hepatitis A IgM Ab Non-reactive (NonReactive) 01/02/19 14:20 Hep Bs Antigen Non-reactive (Negative) 01/02/19 14:20 Hep B Core IgM Ab Non-reactive (NonReactive) 01/02/19 14:20 Hepatitis C Antibody Reactive (NonReactive) A 01/02/19 14:20 Blood Type B POSITIVE 01/02/19 08:19 Antibody Screen Negative 01/02/19 08:19 Crossmatch See Detail 01/02/19 08:19 Nutrition/Malnutrition Assess - Dietary Evaluation Nutrition/Malnutrition Findings: Nutrition Notes Start: 01/02/19 13:43 Freq: Status: Active Protocol: Document 01/02/19 13:43 RM (Rec: 01/02/19 13:46 RM [id number]) Nutrition Notes Need for Assessment generated from: customer complaint clerk Initial or Follow up Brief Note Current Diagnosis Acute Kidney Injury Other Pertinent Diagnosis AMS, Ascites, UTI, Sepsis Current Diet No diet ordered Subjective/Other Information Screened for malnutrition. Pt asleep at time of visit with towel draped across face. No family present. Nutrition Intervention Follow-Up By: 01/03/19 Additional Comments Follow for malnutrition assessment
[2019-01-03] MEDS ORDERED: XYLOCAINE 1% 20 mL ONE (13:47)
--- NOTE | 2019-01-03 14:24 | Cat Scan Report ---
FINAL REPORT PROCEDURE: CT HEAD/BRAIN WO CON TECHNIQUE: Computerized tomography of the head was performed without contrast material. HISTORY: ams COMPARISON: No prior studies are available for comparison. FINDINGS: Skull and scalp: Normal. Paranasal sinuses: Normal. Ventricles and subarachnoid spaces: Normal. Cerebrum: No evidence of hemorrhage, acute infarction or mass . Cerebellum and brainstem: No evidence of hemorrhage, acute infarction or mass. Vasculature: Normal. Comments: None. IMPRESSION: Normal Examination
[2019-01-03] MEDS ORDERED: WATER FOR IRRIG STERILE ONE (14:35)
[2019-01-03] MEDS ORDERED: WATER FOR IRRIG STERILE IR ONE (14:35)
--- NOTE | 2019-01-03 15:22 | Procedure Note ---
Date of procedure: 01/03/19 Pre-op diagnosis: ascites Post-op diagnosis: same Procedure: US paracentesis Findings: moderate ascites Anesthesia: local Surgeon: JAVY MARI Estimated blood loss: none Pathology: list (120cc) Specimen disposition: to lab Condition: stable Disposition: floor
--- NOTE | 2019-01-03 15:56 | Cat Scan Report ---
FINAL REPORT PROCEDURE: CT ABDOMEN PELVIS WO CON TECHNIQUE: Computerized axial tomography of the abdomen and pelvis was performed without intravenous contrast. This study is performed without intravascular contrast material and its sensitivity for ab dominal and pelvic pathology, including neoplasms, inflammation, abscess, free fluid, thrombosis, art erial dissection and infarction, is reduced compared with a contrast enhanced study. HISTORY: abd distension COMPARISON: No prior studies are available for comparison. FINDINGS: Visualized lower thorax: There is bilateral lower lung atelectasis with slight effusions.. Liver: The liver is small and nodular. Cirrhosis is suspected. Significant ascites throughout the abd omen and pelvis. Spleen: Normal size and attenuation. Gallbladder and biliary system: Normal. Pancreas: Normal. Adrenals: Normal. Kidneys: Normal. GI tract: No obstruction is seen. There is a moderate hiatal hernia. There is fluid within the esopha екатерина. Findings consistent with reflux. Mild fecal debris in the colon. Significant ascites within the abdomen and pelvis does obscure detail of the bowel.. Lymph nodes and mesentery: Normal. Vasculature: Normal. Bladder: Normal. Reproductive organs: Normal. Peritoneum: There is significant ascites within the abdomen and pelvis. Musculoskeletal structures: Mild degenerative changes of the spine. No acute osseous abnormality. Other: None. IMPRESSION: There is significant ascites throughout the abdomen and pelvis. The liver is small and nodular consis tent with cirrhosis. There is no evidence of intestinal or urinary tract obstruction. The bowel is difficult to evaluate d ue to the amount of ascites. A moderate hiatal hernia is identified. There is fluid within the esopha екатерина consistent with significant reflux..
--- NOTE | 2019-01-03 17:14 | Progress Note ---
Assessment and Plan Imp: 1. Presumed sepsis, r/o SBP 2. Decompensated cirrhosis 3. ROBERTO 4. Metabolic encephalopathy 5. Ascites 6. GI bleed Rec: 1. Cont. current ABX; f/u cultures and ascitic fluid analysis 2. Cont. Levophed to keep MAP > 65 3. Monitor H/H 4. SCDs 5. Cont. PPI/Octreotide; f/u GI recs 6. No family present; prognosis is guarded CCT 31 min Subjective Date of service: 01/03/19 Principal diagnosis: roberto Interval history: s/p Paracentesis, see report. Hypotensive after tap, back on Levophed. Somnolent but arousable. Comfortable on nasal cannula. Unable to give me a coherent history. Active Medications Albumin Human (Alburx 25% (Albumin)) 25 gm IV Q12HR LORI Stop: 01/03/19 22:01 Last Admin: 01/03/19 15:57 Dose: Not Given Documented by: Norepinephrine (Levophed Drip 4 Mg/Ns 250 Ml) 4 mg in 250 mls @ 7.5 mls/hr IV T ITR LORI; Protocol Last Titration: 01/03/19 16:00 Dose: 2 mcg/min, 7.5 mls/hr Documented by: Vancomycin HCl 1,500 mg/ (Sodium Chloride) 530 mls @ 333.333 mls/hr IV Q24H LORI Last Admin: 01/02/19 20:13 Dose: 333.333 mls/hr Documented by: Cefepime HCl (Maxipime/Ns 2 Gm/100 Ml) 2 gm in 100 mls @ 200 mls/hr IV Q12HR LORI Last Admin: 01/03/19 11:02 Dose: 200 mls/hr Documented by: Dextrose/Sodium Chloride (D5ns) 1,000 mls @ 100 mls/hr IV DIRECT LORI Last Admin: 01/02/19 20:08 Dose: 100 mls/hr Documented by: Octreotide Acetate 500 mcg/ (Sodium Chloride) 101 mls @ 5.05 mls/hr IV TITR LORI; Protocol Last Admin: 01/02/19 15:20 Dose: 25 mcg/hr, 5.05 mls/hr Documented by: Pantoprazole Sodium 80 mg/ (Sodium Chloride) 100 mls @ 10 mls/hr IV DIRECT LORI Last Admin: 01/03/19 15:59 Dose: 8 mg/hr, 10 mls/hr Documented by: Sodium Chloride (Nacl 0.9% 1000 Ml) 1,000 mls @ 50 mls/hr IV DIRECT LORI Ondansetron HCl (Zofran) 4 mg IV Q8H PRN PRN Reason: Nausea And Vomiting Last Admin: 01/02/19 11:45 Dose: 4 mg Documented by: Objective Vital Signs - 12hr 01/03/19 01/03/19 01/03/19 05:11 05:20 05:30 Temperature Pulse Rate 107 H 110 H 107 H Pulse Rate [ From Monitor] Respiratory 28 H 30 H 23 Rate Blood Pressure 94/60 92/60 90/60 O2 Sat by Pulse 97 97 95 Oximetry 01/03/19 01/03/19 01/03/19 05:40 05:51 06:00 Temperature Pulse Rate 108 H 108 H 107 H Pulse Rate [ From Monitor] Respiratory 25 H 21 22 Rate Blood Pressure 90/60 94/59 90/62 O2 Sat by Pulse 96 100 99 Oximetry 01/03/19 01/03/19 01/03/19 06:11 06:21 06:30 Temperature Pulse Rate 109 H 111 H 109 H Pulse Rate [ From Monitor] Respiratory 23 30 H 23 Rate Blood Pressure 90/62 89/60 93/63 O2 Sat by Pulse 99 93 94 Oximetry 01/03/19 01/03/19 01/03/19 06:41 06:51 07:00 Temperature Pulse Rate 108 H 108 H 105 H Pulse Rate [ From Monitor] Respiratory 29 H 17 30 H Rate Blood Pressure 93/63 91/63 95/65 O2 Sat by Pulse 90 96 94 Oximetry 01/03/19 01/03/19 01/03/19 07:11 07:21 07:30 Temperature Pulse Rate 105 H 104 H 107 H Pulse Rate [ From Monitor] Respiratory 27 H 26 H 28 H Rate Blood Pressure 95/65 98/65 93/65 O2 Sat by Pulse 98 97 98 Oximetry 01/03/19 01/03/19 01/03/19 07:41 07:51 08:00 Temperature Pulse Rate 105 H 102 H 101 H Pulse Rate [ 84 From Monitor] Respiratory 25 H 25 H 15 Rate Blood Pressure 91/63 101/65 90/65 O2 Sat by Pulse 96 86 88 Oximetry 01/03/19 01/03/1901/03/19 08:11 08:20 08:21 Temperature Pulse Rate 101 H 101 H Pulse Rate [ From Monitor] Respiratory 22 20 Rate Blood Pressure 101/65 95/65 O2 Sat by Pulse 100 100 99 Oximetry 01/03/19 01/03/19 01/03/19 08:30 08:35 08:41 Temperature 98.0 F Pulse Rate 99 H 96 H 100 H Pulse Rate [ From Monitor] Respiratory 20 20 20 Rate Blood Pressure 99/65 90/67 99/65 O2 Sat by Pulse 99 98 100 Oximetry 01/03/19 01/03/19 01/03/19 08:50 08:51 09:00 Temperature 98.0 F Pulse Rate 99 H 98 H 103 H Pulse Rate [ From Monitor] Respiratory 22 19 19 Rate Blood Pressure 92/70 89/61 90/67 O2 Sat by Pulse 100 100 Oximetry 01/03/19 01/03/19 01/03/19 09:11 09:21 09:30 Temperature Pulse Rate 98 H 99 H 98 H Pulse Rate [ From Monitor] Respiratory 20 20 20 Rate Blood Pressure 90/67 92/64 96/65 O2 Sat by Pulse 98 99 99 Oximetry 01/03/19 01/03/19 01/03/19 09:41 09:51 10:00 Temperature Pulse Rate 102 H 103 H 104 H Pulse Rate [ From Monitor] Respiratory 20 23 25 H Rate Blood Pressure 96/65 100/71 101/66 O2 Sat by Pulse 97 97 96 Oximetry 01/03/19 01/03/19 01/03/19 10:11 10:21 10:30 Temperature Pulse Rate 99 H 103 H 100 H Pulse Rate [ From Monitor] Respiratory 27 H 31 H 28 H Rate Blood Pressure 101/66 100/64 95/66 O2 Sat by Pulse 96 95 95 Oximetry 01/03/19 01/03/19 01/03/19 10:41 10:51 11:00 Temperature Pulse Rate 103 H 97 H 97 H Pulse Rate [ From Monitor] Respiratory 28 H 28 H Rate Blood Pressure 95/66 95/66 95/67 O2 Sat by Pulse 94 95 97 Oximetry 01/03/19 01/03/19 01/03/19 11:11 11:21 11:30 Temperature Pulse Rate 97 H 94 H 94 H Pulse Rate [ From Monitor] Respiratory 25 H 24 21 Rate Blood Pressure 95/67 98/65 101/66 O2 Sat by Pulse 97 98 100 Oximetry 01/03/19 01/03/19 01/03/19 11:41 11:51 12:00 Temperature 98.7 F Pulse Rate 93 H 95 H 94 H Pulse Rate [ 88 From Monitor] Respiratory 22 20 21 Rate Blood Pressure 101/66 101/63 95/66 O2 Sat by Pulse 100 100 99 Oximetry 01/03/19 01/03/19 01/03/19 12:11 12:21 12:30 Temperature Pulse Rate 92 H 93 H 94 H Pulse Rate [ From Monitor] Respiratory 20 20 20 Rate Blood Pressure 95/66 98/63 105/68 O2 Sat by Pulse 99 100 100 Oximetry 01/03/19 01/03/19 01/03/19 12:41 12:51 13:00 Temperature Pulse Rate 92 H 95 H 98 H Pulse Rate [ From Monitor] Respiratory 19 23 22 Rate Blood Pressure 105/68 98/63 96/49 O2 Sat by Pulse 100 100 97 Oximetry 01/03/19 01/03/19 01/03/19 13:11 13:21 13:30 Temperature Pulse Rate 94 H 91 H 92 H Pulse Rate [ From Monitor] Respiratory 20 27 H 26 H Rate Blood Pressure 96/49 93/62 95/60 O2 Sat by Pulse 99 99 99 Oximetry 01/03/19 01/03/19 01/03/19 14:06 15:07 15:11 Temperature Pulse Rate 89 Pulse Rate [ From Monitor] Respiratory 18 Rate Blood Pressure 98/63 92/55 O2 Sat by Pulse 97 100 Oximetry 01/03/19 01/03/19 01/03/19 15:21 15:30 15:40 Temperature Pulse Rate 89 92 H 87 Pulse Rate [ From Monitor] Respiratory 16 17 15 Rate Blood Pressure 88/53 90/55 95/60 O2 Sat by Pulse 100 98 100 Oximetry 01/03/19 01/03/19 01/03/19 15:51 16:00 16:11 Temperature Pulse Rate 87 85 83 Pulse Rate [ 86 From Monitor] Respiratory 14 15 14 Rate Blood Pressure 92/55 94/55 94/55 O2 Sat by Pulse 100 100 100 Oximetry 01/03/19 01/03/19 01/03/19 16:21 16:30 16:41 Temperature Pulse Rate 86 85 81 Pulse Rate [ From Monitor] Respiratory 15 15 14 Rate Blood Pressure 99/61 98/60 98/60 O2 Sat by Pulse 99 100 100 Oximetry 01/03/19 01/03/19 16:51 17:00 Temperature Pulse Rate 91 H 87 Pulse Rate [ From Monitor] Respiratory 14 13 Rate Blood Pressure 92/55 100/61 O2 Sat by Pulse 100 99 Oximetry Constitutional: other (critically ill on pressors) Eyes: icteric ENT: oropharynx moist Neck: supple Effort: normal Ascultation: Bilateral: clear, diminished breath sounds (Limited excursions with associated ascites) Cardiovascular: regular rate and rhythm (no mrg) Gastrointestinal: normoactive bowel sounds, other (ascites, prominent -> better) Integumentary: normal Extremities: no cyanosis, pink and warm, edema (2+ bilateral LE edema) Neurologic: non-focal exam, other (somnolent but able to follow most of my questions. Appears to be oriented in place and partially in time) Psychiatric: mood appropriate, affect normal CBC and BMP: 01/03/19 05:05 01/03/19 05:05 ABG, PT/INR, D-dimer: PT/INR, D-dimer PT 18.4 Sec. (12.2-14.9) H 01/03/19 08:02 INR 1.43 (0.87-1.13) H 01/03/19 08:02 Abnormal lab findings: Abnormal Labs 01/01/19 01/01/19 01/01/19 02:22 21:16 21:25 WBC 14.9 H RBC Hgb Hct MCHC 35 H RDW 16.1 H Plt Count Lymph % (Auto) Gilchrist % (Auto) Lymph # Seg Neutrophils % Lymphocytes % (Manual) 2.0 L Seg Neutrophils # Man 10.1 H Lymphocytes # (Manual) 0.3 L PT INR Sodium Potassium Chloride Carbon Dioxide BUN Creatinine Glucose POC Glucose 106 H Lactic Acid Calcium TIBC Ferritin Total Bilirubin Direct Bilirubin AST Total Protein Albumin Urine WBC (Auto) 27.0 H Hepatitis C Antibody Crossmatch 01/01/19 01/01/19 01/01/19 21:25 21:25 21:25 WBC RBC Hgb Hct MCHC RDW Plt Count Lymph % (Auto) [place]christ % (Auto) Lymph # Seg Neutrophils % Lymphocytes % (Manual) Seg Neutrophils # Man Lymphocytes # (Manual) PT 16.7 H INR 1.27 H Sodium 124 L Potassium Chloride 80.3 L Carbon Dioxide 21 L BUN 25 H Creatinine 1.7 H Glucose 117 H POC Glucose Lactic Acid 3.50 H* Calcium TIBC Ferritin Total Bilirubin 2.40 H Direct Bilirubin AST 200 H Total Protein Albumin 2.6 L Urine WBC (Auto) Hepatitis C Antibody Crossmatch 01/01/19 01/01/19 01/02/19 22:26 23:23 04:29 WBC RBC Hgb Hct MCHC RDW Plt Count Lymph % (Auto) [place] % (Auto) Lymph # Seg Neutrophils % Lymphocytes % (Manual) Seg Neutrophils # Man Lymphocytes # (Manual) PT INR Sodium Potassium Chloride Carbon Dioxide BUN Creatinine Glucose POC Glucose Lactic Acid 2.80 H* 2.10 H* 2.30 H* Calcium TIBC Ferritin Total Bilirubin Direct Bilirubin AST Total Protein Albumin Urine WBC (Auto) Hepatitis C Antibody Crossmatch 01/02/19 01/02/19 01/02/19 04:29 08:07 08:19 WBC RBC Hgb 11.3 L Hct 32.4 L MCHC RDW Plt Count Lymph % (Auto) [place]christ % (Auto) Lymph # Seg Neutrophils % Lymphocytes % (Manual) Seg Neutrophils # Man Lymphocytes # (Manual) PT INR Sodium 124 L Potassium Chloride 86.0 L Carbon Dioxide 17 L BUN 26 H Creatinine Glucose 104 H POC Glucose 109 H Lactic Acid Calcium 7.8 L TIBC Ferritin Total Bilirubin Direct Bilirubin AST Total Protein Albumin Urine WBC (Auto) Hepatitis C Antibody Crossmatch 01/02/19 01/02/19 01/02/19 08:19 11:46 14:20 WBC RBC Hgb 10.6 L Hct 30.8 L MCHC RDW Plt Count Lymph % (Auto) [place] % (Auto) Lymph # Seg Neutrophils % Lymphocytes % (Manual) Seg Neutrophils # Man Lymphocytes # (Manual) PT INR Sodium Potassium Chloride Carbon Dioxide BUN Creatinine Glucose POC Glucose Lactic Acid Calcium TIBC 160 L Ferritin Total Bilirubin 1.70 H Direct Bilirubin 1.0 H AST 132 H Total Protein 5.6 L Albumin 2.6 L Urine WBC (Auto) Hepatitis C Antibody Crossmatch See Detail 01/02/19 01/02/19 01/02/19 14:20 14:20 18:08 WBC RBC Hgb 9.1 L Hct 26.2 L MCHC RDW Plt Count Lymph % (Auto) [place]christ % (Auto) Lymph # Seg Neutrophils % Lymphocytes % (Manual) Seg Neutrophils # Man Lymphocytes # (Manual) PT INR Sodium Potassium Chloride Carbon Dioxide BUN Creatinine Glucose POC Glucose Lactic Acid Calcium TIBC Ferritin 1071.0 H Total Bilirubin Direct Bilirubin AST Total Protein Albumin Urine WBC (Auto) Hepatitis C Antibody Reactive A Crossmatch 01/03/19 01/03/19 01/03/19 00:45 05:05 05:05 WBC RBC 2.66 L Hgb 9.1 L 8.4 L Hct 26.1 L 24.1 L MCHC 35 H RDW 16.3 H Plt Count 101 L Lymph % (Auto) 10.6 L Gilchrist % (Auto) 11.3 H Lymph # 0.8 L Seg Neutrophils % 78.0 H Lymphocytes % (Manual) Seg Neutrophils # Man Lymphocytes # (Manual) PT INR Sodium 132 L D Potassium 3.2 L D Chloride 92.1 L Carbon Dioxide BUN 34 H Creatinine 1.8 H Glucose 163 H POC Glucose Lactic Acid Calcium 7.7 L TIBC Ferritin Total Bilirubin 1.70 H Direct Bilirubin AST 93 H Total Protein 5.1 L Albumin 2.5 L Urine WBC (Auto) Hepatitis C Antibody Crossmatch 01/03/19 08:02 WBC RBC Hgb Hct MCHC RDW Plt Count Lymph % (Auto) [place] % (Auto) Lymph # Seg Neutrophils % Lymphocytes % (Manual) Seg Neutrophils # Man Lymphocytes # (Manual) PT 18.4 H INR 1.43 H Sodium Potassium Chloride Carbon Dioxide BUN Creatinine Glucose POC Glucose Lactic Acid Calcium TIBC Ferritin Total Bilirubin Direct Bilirubin AST Total Protein Albumin Urine WBC (Auto) Hepatitis C Antibody Crossmatch Chest x-ray: report reviewed, image reviewed
[2019-01-03 17:48] LABS: Hemoglobin 9.5 gm/dl (11.8-15.2); Mean Corpuscular HGB Conc 35 % (32-34); Mean Corpuscular Volume 90 fl (84-94); Red Blood Count 3.01 M/mm3 (3.65-5.03); Red Cell Distribution Width 16.2 % (13.2-15.2)
[2019-01-03 17:49] LABS: Platelet Count 81 K/mm3 (140-440)
[2019-01-03] MEDS: SandoSTATIN 500 MCG in NACL 0.9% 100 ML IV SCH (18:53)
--- NOTE | 2019-01-03 19:03 | Event Note ---
Date: 01/03/19 Patient underwent therapeutic paracentesis this afternoon with about 9 L removed. Became hypotensive and started on levophed. Per nursing, patient had brown stool this afternoon. H/H post transfusion at 9.5 from 8.4. No active bleeding at this time. Discussed with anesthesia regarding endoscopy. Will stabilize patient overnight and plan for EGD tomorrow AM.
[2019-01-03] MEDS: VANCOMYCIN 1,500 MG in NACL 0.9% 500 ML 500 ML IV SCH (20:33)
[2019-01-03 21:20] LABS: Total Cells Counted 100 /mm3
[2019-01-04 05:19] LABS: Hematocrit 29.9 % (35.5-45.6); Hemoglobin 10.4 gm/dl (11.8-15.2); Mean Corpuscular HGB Conc 35 % (32-34); Mean Corpuscular Volume 91 fl (84-94); Red Cell Distribution Width 16.5 % (13.2-15.2)
[2019-01-04 05:31] LABS: Platelet Count 76 K/mm3 (140-440)
[2019-01-04 05:43] LABS: Calcium 7.5 mg/dL (8.4-10.2)
[2019-01-04] MEDS ORDERED: DIPRIVAN 10 MG/ML IV ONE ×4 (06:25→09:07)
[2019-01-04] MEDS ORDERED: NACL 0.9% 100 ML ONE (06:26)
[2019-01-04] MEDS ORDERED: NEO SYNEPHRINE ONE (06:26)
[2019-01-04] MEDS ORDERED: XYLOCAINE 2% INFILTRATI ONE ×2 (06:26→09:07)
--- NOTE | 2019-01-04 07:11 | Ultrasound Report ---
ULTRASOUND PARACENTESIS HISTORY: Ascites. DESCRIPTION OF PROCEDURE: A time out was performed. Informed consent was obtained. Sterile technique was utilized. Using ultrasound guidance, a 5 Polish centesis needle was advanced into the peritoneal space. There was spontaneous return of clear yellow fluid. 9.5 L of fluid was drained. 120 cc of fluid was sent to laboratory for analysis. No complications. IMPRESSION: Successful ultrasound-guided paracentesis.
--- NOTE | 2019-01-04 07:29 | Operative Report ---
Operative Report Operative Report: Date of procedure: 01/04/2019 Procedure: Esophagogastroduodenoscopy with esophageal banding Preprocedure diagnosis: hematemesis Post procedure diagnosis: esophageal varices and esophageal ulcer Endoscopist: Chandler Flores MD Anesthesia: Monitored anesthesia care per anesthesia department Medications: Propofol per anesthesia Estimated blood loss: 0 After careful discussion of the nature and purpose of the procedure as well as details the technique risks benefits and alternatives consent was obtained. The patient was placed in the left lateral decubitus position and medicated per anesthesia. The tip of the HERMEL DELOR EQ 570 video scope was passed per orum under direct vision into the esophagus, stomach, and duodenum. The scope was advanced to the 2nd part of the duodenum. The examined portion of the duodenum appeared normal. The scope was withdrawn into the stomach and the stomach then gently insufflated with air. The antrum appeared normal with signs of gastric varices. The stomach was further insufflated and the scope was then retroflexed and partially withdrawn. The cardia and fundus appeared normal. The scope was then withdrawn in the forward position. The distal esophagus revealed large ulcer just at GE junction (34 cm) and 2-3 columns of large esophageal varices with red vishal sign. The scope was withdrawn and reintroduced with a 7 shooter banding placed. Two bands were successfully placed at the distal esophagus. There was some difficulty with suctioning. Mild oozing with the banding noted. The procedure was well tolerated and the patient was observed in recovery. Impressions: 1. Distal esophageal ulcer at the GE junction at 34 cm. 2. 2-3 columns of large esophageal varices with red vishal sign. Banding ligation performed with placement of 2 bands successfully. 3. Rest of the exam including stomach and duodenum appeared normal. Plan: 1. Resume clear liquids 2. Monitor H/H serially and transfuse with Hgb goal >7. 3. Continue octreotide for 72 hrs total 4. Continue with PPI IV. 5. Monitor for any signs of recurrent bleeding. 6. Will follow.
--- NOTE | 2019-01-04 08:01 | Progress Note ---
Assessment and Plan Assessment and plan: Patient is 68 year old male admitted with sepsis, AMS, chronic hep C, decompensated cirrhosis and ascites and presumed SBP and concern for GI bleed. The patient proceeded to have Paracentesis with full fluid analysis pending. He also underwent EGD with notation of Distal Esophgeal ulcer at the [place] and also 2-3 large Esophageal varies with banding performed. SIRS No sespsis Lactic acidosis GI bleed- Upper GI-gastric ulcers Esophageal Varices X2 Acute Metabolic Encephalopathy ROBERTO secondary to vasomotor Nephropathy now resolved Ascites Decompensated Cirrhosis Thrombocytopenia Hypokalemia- Replace Plan Continue supportive care Wean Pressors as tolerated BB precluded due to hypotension Follow cultures and ascitic fluid analysis Replace and manage electrolytes Continue PPI/Octreotide per GI recommendation Critical care input noted, and will follow there management Renal input appreciated Imaging studies reviewed and no other acute pathology in the brain ID consult. DVT/GI prophy Plan discussed with Nursings staff. History Interval history: Patient seen and examined, remains with confusion. no shortness of breath noted Hospitalist Physical - Physical exam Narrative exam: VITAL SIGNS: Reviewed. GENERAL: The patient appeared well nourished and normally developed. Vital signs as documented. HEAD: No signs of head trauma. EYES: Pupils are equal. Extraocular motions intact. EARS: Hearing grossly intact. MOUTH: Oropharynx is normal. NECK: No adenopathy, no JVD. CHEST: Chest with clear breath sounds bilaterally. No wheezes, rales, or rhonchi. CARDIAC: Regular rate and rhythm. S1 and S2, without murmurs, gallops, or rubs. VASCULAR: No Edema. Peripheral pulses normal and equal in all extremities. ABDOMEN: Soft, without detectable tenderness. distended with positive fluid shift. No rebound or guarding, and no masses palpated. Bowel Sounds normal. MUSCULOSKELETAL: Good range of motion of all major joints. Extremities without clubbing, cyanosis or edema. NEUROLOGIC EXAM: confused. No focal sensory or strength deficits. Speech normal. Follows commands. PSYCHIATRIC: Mood normal. SKIN: No rash or lesions. - Constitutional Vitals: Temp Pulse Resp BP Pulse Ox 98.6 F 100 H 22 84/55 91 01/04/19 04:00 01/04/19 07:10 01/04/19 07:10 01/04/19 07:10 01/04/19 07:10 Results - Labs CBC & Chem 7: 01/04/19 14:18 01/04/19 04:21 Labs: Laboratory Last Values WBC 7.5 K/mm3 (4.5-11.0) 01/04/19 04:21 RBC 3.30 M/mm3 (3.65-5.03) L 01/04/19 04:21 Hgb 10.4 gm/dl (11.8-15.2) L 01/04/19 04:21 Hct 29.9 % (35.5-45.6) L 01/04/19 04:21 MCV 91 fl (84-94) 01/04/19 04:21 MCH 32 pg (28-32) 01/04/19 04:21 MCHC 35 % (32-34) H 01/04/19 04:21 RDW 16.5 % (13.2-15.2) H 01/04/19 04:21 Plt Count 76 K/mm3 (140-440) L 01/04/19 04:21 Lymph % (Auto) 10.6 % (13.4-35.0) L 01/03/19 05:05 [place] % (Auto) 11.3 % (0.0-7.3) H 01/03/19 05:05 Eos % (Auto) 0.0 % (0.0-4.3) 01/03/19 05:05 Baso % (Auto) 0.1 % (0.0-1.8) 01/03/19 05:05 Lymph # 0.8 K/mm3 (1.2-5.4) L 01/03/19 05:05 [place] # 0.8 K/mm3 (0.0-0.8) 01/03/19 05:05 Eos # 0.0 K/mm3 (0.0-0.4) 01/03/19 05:05 Baso # 0.0 K/mm3 (0.0-0.1) 01/03/19 05:05 Add Manual Diff Complete 01/01/19 21:25 Total Counted 100 01/01/19 21:25 Seg Neutrophils % 78.0 % (40.0-70.0) H 01/03/19 05:05 Seg Neuts % (Manual) 68.0 % (40.0-70.0) 01/01/19 21:25 Band Neutrophils % 28.0 % 01/01/19 21:25 Lymphocytes % (Manual) 2.0 % (13.4-35.0) L 01/01/19 21:25 Reactive Lymphs % (Man) 0 % 01/01/19 21:25 Monocytes % (Manual) 2.0 % (0.0-7.3) 01/01/19 21:25 Eosinophils % (Manual) 0 % (0.0-4.3) 01/01/19 21:25 Basophils % (Manual) 0 % (0.0-1.8) 01/01/19 21:25 Metamyelocytes % 0 % 01/01/19 21: Myelocytes % 0 % 01/01/19: Promyelocytes % 0 % 01/01/19: Blast Cells % 0 % 01/01/19: Nucleated RBC % Not Reportable 01/01/19 21:25 Seg Neutrophils # 5.6 K/mm3 (1.8-7.7) 01/03/19 05:05 Seg Neutrophils # Man 10.1 K/mm3 (1.8-7.7) H 01/01/19 21:25 Band Neutrophils # 4.2 K/mm3 01/01/19 21:25 Lymphocytes # (Manual) 0.3 K/mm3 (1.2-5.4) L 01/01/19 21:25 Abs React Lymphs (Man) 0.0 K/mm3 01/01/19 21:25 Monocytes # (Manual) 0.3 K/mm3 (0.0-0.8) 01/01/19 21:25 Eosinophils # (Manual) 0.0 K/mm3 (0.0-0.4) 01/01/19 21:25 Basophils # (Manual) 0.0 K/mm3 (0.0-0.1) 01/01/19:25 Metamyelocytes # 0.0 K/mm3 01/01/19:25 Myelocytes # 0.0 K/mm3 01/01/19 21:25 Promyelocytes # 0.0 K/mm3 01/01/19 21:25 Blast Cells # 0.0 K/mm3 01/01/19 21:25 WBC Morphology Not Reportable 01/01/19: Hypersegmented Neuts Not Reportable 01/01/19 21:25 Hyposegmented Neuts Not Reportable 01/01/19 21:25 Hypogranular Neuts Not Reportable 01/01/19 21:25 Smudge Cells Not Reportable 01/01/19 21:25 Toxic Granulation Not Reportable 01/01/19 21:25 Toxic Vacuolation Not Reportable 01/01/19 21:25 Dohle Bodies Not Reportable 01/01/19 21:25 Pelger-Huet Anomaly Not Reportable 01/01/19 21:25 Korin Rods Not Reportable 01/01/19 21:25 Platelet Estimate Consistent w auto 01/01/19 21:25 Clumped Platelets Not Reportable 01/01/19 21:25 Plt Clumps, EDTA Not Reportable 01/01/19 21:25 Large Platelets Not Reportable 01/01/19 21:25 Giant Platelets Not Reportable 01/01/19 21:25 Platelet Satelliting Not Reportable 01/01/19 21:25 Plt Morphology Comment Not Reportable 01/01/19 21:25 RBC Morphology Not Reportable 01/01/19 21:25 Dimorphic RBCs Not Reportable 01/01/19 21:25 Polychromasia Not Reportable 01/01/19 21:25 Hypochromasia Not Reportable 01/01/19 21:25 Poikilocytosis Not Reportable 01/01/19 21:25 Anisocytosis Not Reportable 01/01/19 21:25 Microcytosis Not Reportable 01/01/19 21:25 Macrocytosis 1+ 01/01/19 21:25 Spherocytes Not Reportable 01/01/19 21:25 Pappenheimer Bodies Not Reportable 01/01/19 21:25 Sickle Cells Not Reportable 01/01/19 21:25 Target Cells Few 01/01/19 21:25 Tear Drop Cells Not Reportable 01/01/19 21:25 Ovalocytes Not Reportable 01/01/19 21:25 Helmet Cells Not Reportable 01/01/19 21:25 Shrestha-Mylo Bodies Not Reportable 01/01/19 21:25 Samaria Rings Not Reportable 01/01/19 21:25 [place] Cells Not Reportable 01/01/19 21:25 Bite Cells Not Reportable 01/01/19 21:25 Crenated Cell Not Reportable 01/01/19 21:25 Elliptocytes Not Reportable 01/01/19 21:25 Acanthocytes (Spur) Not Reportable 01/01/19 21:25 Rouleaux Not Reportable 01/01/19 21:25 Hemoglobin C Crystals Not Reportable 01/01/19 21:25 Schistocytes Not Reportable 01/01/19 21:25 Malaria parasites Not Reportable 01/01/19 21:25 Macho Bodies Not Reportable 01/01/19 21:25 Hem Pathologist Commnt No 01/01/19 21:25 PT 18.4 Sec. (12.2-14.9) H 01/03/19 08:02 INR 1.43 (0.87-1.13) H 01/03/19 08:02 APTT 31.1 Sec. (24.2-36.6) 01/01/19 21:25 Sodium 135 mmol/L (137-145) L 01/04/19 04:21 Potassium 3.2 mmol/L (3.6-5.0) L 01/04/19 04:21 Chloride 98.3 mmol/L (98-107) 01/04/19 04:21 Carbon Dioxide 28 mmol/L (22-30) 01/04/19 04:21 Anion Gap 12 mmol/L 01/04/19 04:21 BUN 32 mg/dL (9-20) H 01/04/19 04:21 Creatinine 1.5 mg/dL (0.8-1.5) 01/04/19 04:21 Estimated GFR 57 ml/min 01/04/19 04:21 BUN/Creatinine Ratio 21 % 01/04/19 04:21 Glucose 114 mg/dL (75-100) H 01/04/19 04:21 POC Glucose 109 (70-105) H 01/02/19 08:07 Lactic Acid 1.80 mmol/L (0.7-2.0) 01/02/19 08:19 Calcium 7.5 mg/dL (8.4-10.2) L 01/04/19 04:21 Iron 77 ug/dL (49-181) 01/02/19 14:20 TIBC 160 mcg/dL (250-450) L 01/02/19 14:20 Ferritin 1071.0 ng/mL (13.0-400.0) H 01/02/19 14:20 Total Bilirubin 1.70 mg/dL (0.1-1.2) H 01/03/19 05:05 Direct Bilirubin 1.0 mg/dL (0-0.2) H 01/02/19 14:20 Indirect Bilirubin 0.7 mg/dL 01/02/19 14:20 AST 93 units/L (5-40) H 01/03/19 05:05 ALT 33 units/L (7-56) 01/03/19 05:05 Alkaline Phosphatase 37 units/L (35-129) 01/03/19 05:05 Ammonia 49.0 umol/L (25-60) 01/01/19 23:23 Total Protein 5.1 g/dL (6.3-8.2) L 01/03/19 05:05 Albumin 2.5 g/dL (3.9-5) L 01/03/19 05:05 Albumin/Globulin Ratio 1.0 % 01/03/19 05:05 Urine Color [place] (Yellow) 01/01/19 02:22 Urine Turbidity Slightly-cloudy (Clear) 01/01/19 02:22 Urine pH 5.0 (5.0-7.0) 01/01/19 02:22 Ur Specific [place] 1.015 (1.003-1.030) 01/01/19 02:22 Urine Protein 100 mg/dl mg/dL (Negative) 01/01/19 02:22 Urine Glucose (UA) Neg mg/dL (Negative) 01/01/19 02:22 Urine Ketones Tr mg/dL (Negative) 01/01/19 02:22 Urine Blood Mod (Negative) 01/01/19 02:22 Urine Nitrite Neg (Negative) 01/01/19 02:22 Urine Bilirubin Neg (Negative) 01/01/19 02:22 Urine Urobilinogen 4.0 mg/dL (<2.0) 01/01/19 02:22 Ur Leukocyte Esterase Tr (Negative) 01/01/19 02:22 Urine WBC (Auto) 27.0 /HPF (0.0-6.0) H 01/01/19 02:22 Urine RBC (Auto) 3.0 /HPF (0.0-6.0) 01/01/19 02:22 U Epithel Cells (Auto) < 1.0 /HPF (0-13.0) 01/01/19 02:22 Urine Bacteria (Auto) 1+ /HPF (Negative) 01/01/19 02:22 Hyaline Casts 41 /LPF 01/01/19 02:22 Granular Casts 4 /LPF 01/01/19 02:22 Urine Mucus 1+ /HPF 01/01/19 02:22 Fluid Type Ascitic 01/03/19 Unknown Fluid Color Yellow 01/03/19 Unknown Fluid Appearance Cloudy 01/03/19 Unknown Fluid WBC 21 /mm3 01/03/19 Unknown Fluid RBC 3150 /mm3 01/03/19 Unknown Fluid Seg Neutrophils 15.0 % 01/03/19 Unknown Fluid Lymphocytes 81.0 % 01/03/19 Unknown Fluid Monocytes 4.0 % 01/03/19 Unknown Random Vancomycin 14.1 ug/mL (0-40.0) 01/03/19 13:14 Hepatitis A IgM Ab Non-reactive (NonReactive) 01/02/19 14:20 Hep Bs Antigen Non-reactive (Negative) 01/02/19 14:20 Hep B Core IgM Ab Non-reactive (NonReactive) 01/02/19 14:20 Hepatitis C Antibody Reactive (NonReactive) A 01/02/19 14:20 Blood Type B POSITIVE 01/02/19 08:19 Antibody Screen Negative 01/02/19 08:19 Crossmatch See Detail 01/02/19 08:19 Nutrition/Malnutrition Assess - Dietary Evaluation Nutrition/Malnutrition Findings: Nutrition Notes Start: 01/02/19 13:43 Freq: Status: Active Protocol: Document 01/03/19 14:33 RM (Rec: 01/03/19 14:35 RM [id number]) Nutrition Notes Initial or Follow up Brief Note Current Diagnosis Acute Kidney Injury Other Pertinent Diagnosis AMS, Ascites, UTI, Sepsis, GI bleed, Cirrhosis Current Diet No diet ordered Subjective/Other Information Pt asleep at time of visit. No family present. Nutrition Intervention Follow-Up By: 01/04/19 Additional Comments Follow for malnutrition assessment
[2019-01-04] MEDS ORDERED: MAGNESIUM SULFATE IV ONE (08:09)
--- NOTE | 2019-01-04 08:52 | Anesthesia Consultation ---
Anesthesia Consult and Med Hx Date of service: 01/04/19 - Airway Anesthetic Teeth Evaluation: Poor ROM Head & Neck: Adequate Mental/Hyoid Distance: Adequate Mallampati Class: Class III Intubation Access Assessment: Possibly Difficult - Pre-Operative Health Status ASA Pre-Surgery Classification: ASA4, Emergency Proposed Anesthetic Plan: MAC - Pulmonary Hx Smoking: Yes Hx Respiratory Symptoms: Yes (pleural effusion) - Cardiovascular System Hx Hypertension: No (low BP) - Central Nervous System Hx Psychiatric Problems: Yes (altered mental status) - Gastrointestinal Hx Ulcer: Yes (GI bleed) - Endocrine Hx Cirrhosis: Yes Hx Liver Disease: Yes (ascitis) - Hematic Hx Anemia: Yes
--- NOTE | 2019-01-04 08:52 | Anesthesia Day of Surgery ---
Anesthesia Day of Surgery - Day of Surgery Patient Examined: Yes Patient H&P Reviewed: Yes Patient is NPO: Yes
--- NOTE | 2019-01-04 08:53 | Post Anesthesia Evaluation ---
- Post Anesthesia Evaluation Patient Participated: Yes (sleeping) Airway Patent: Yes Stable Respiratory Function: Yes Nausea/Vomiting: No Temp > 96.8F: Yes Pain Manageable: Yes Adequeate Hydration: Yes Anesthesia Complications: No Block Receding Appropriately: Not Applicable Patient on Ventilator: No
[2019-01-04] MEDS ORDERED: MAGNESIUM SULFATE 2GM/50ML 2 GM/50 ML BAG IV ONE (09:00)
[2019-01-04] MEDS ORDERED: KCL 10MEQ/100ML 10 MEQ/100 ML BAG IV SCH (09:00)
[2019-01-04] MEDS: KCL 20MEQ/100ML 20 MEQ/100 ML BAG IV SCH ×2 (09:16→10:08)
--- NOTE | 2019-01-04 09:18 | Progress Note ---
Assessment and Plan Impression: * Hyponatremia * ROBERTO with ATN vs Hepatorenal * Hepatitis C * cirrhosis * hypokalemia * hypomagnesemia * metabolic acidosis * Sepsis * Gi bleeding * uti * Hypotension PLan: * cr better today, still high risk of ATN with hypotension * co2 and NA has improved today * PRBCs prn * replete k and mag prn * iv albumin for 6 doses * continue ivf resuscitation * continue iv abx * keep MAP>65, vasopressors prn * avoid nephrotoxins, strict i/os * daily lytes * no indication for BLOCKER HAND Subjective Date of service: 01/04/19 Principal diagnosis: roberto Interval history: resting in bed, events noted Objective - Exam Narrative Exam: - General Limitations: Altered Mental Status General appearance: alert, lethargic - Head Head exam: Present: atraumatic, normocephalic - Eye Eye exam: Present: scleral icterus - ENT ENT exam: Present: mucous membranes dry, other (dried blood in nare) - Neck Neck exam: Present: normal inspection - Respiratory Respiratory exam: Present: normal lung sounds bilaterally. Absent: respiratory distress - Cardiovascular Cardiovascular Exam: Present: regular rate, normal rhythm - GI/Abdominal GI/Abdominal exam: Present: distended. Absent: tenderness - Extremities Exam Extremities exam: Present: other (2+ pitting edema bilateral lower extremities) - Neurological Exam Neurological exam: Present: alert, altered - Psychiatric Psychiatric exam: Present: normal affect, normal mood - Skin Skin exam: Present: warm, dry, intact, normal color - Vital Signs Vital signs: Vital Signs - 12hr 01/03/19 01/03/19 01/03/19 21:21 21:30 21:41 Temperature Pulse Rate 81 77 87 Pulse Rate [ From Monitor] Respiratory 13 15 16 Rate Blood Pressure 100/59 102/59 98/62 O2 Sat by Pulse 100 100 100 Oximetry 01/03/19 01/03/19 01/03/19 21:50 22:00 22:11 Temperature Pulse Rate 81 82 92 H Pulse Rate [ From Monitor] Respiratory 16 15 14 Rate Blood Pressure 99/60 100/60 99/60 O2 Sat by Pulse 100 100 100 Oximetry 01/03/19 01/03/19 01/03/19 22:21 22:30 22:41 Temperature Pulse Rate 84 83 80 Pulse Rate [ From Monitor] Respiratory 16 15 14 Rate Blood Pressure 104/62 100/62 100/62 O2 Sat by Pulse 100 99 99 Oximetry 01/03/19 01/03/19 01/03/19 22:51 23:00 23:11 Temperature Pulse Rate 83 80 83 Pulse Rate [ From Monitor] Respiratory 16 16 14 Rate Blood Pressure 100/62 92/59 92/59 O2 Sat by Pulse 100 100 99 Oximetry 01/03/19 01/03/19 01/03/19 23:14 23:21 23:30 Temperature 98.6 F Pulse Rate 90 83 Pulse Rate [ From Monitor] Respiratory 21 17 Rate Blood Pressure 95/59 92/57 O2 Sat by Pulse 95 99 Oximetry 01/03/19 01/03/19 01/04/19 23:41 23:51 00:00 Temperature Pulse Rate 87 84 82 Pulse Rate [ 82 From Monitor] Respiratory 16 15 16 Rate Blood Pressure 95/59 89/48 88/55 O2 Sat by Pulse 97 100 100 Oximetry 01/04/19 01/04/19 01/04/19 00:11 00:21 00:30 Temperature Pulse Rate 89 94 H 90 Pulse Rate [ From Monitor] Respiratory 20 15 19 Rate Blood Pressure 89/48 96/56 95/59 O2 Sat by Pulse 99 100 99 Oximetry 01/04/19 01/04/19 01/04/19 00:41 00:51 01:00 Temperature Pulse Rate 89 86 90 Pulse Rate [ From Monitor] Respiratory 19 19 18 Rate Blood Pressure 96/56 100/60 98/65 O2 Sat by Pulse 100 100 100 Oximetry 01/04/19 01/04/19 01/04/19 01:11 01:21 01:30 Temperature Pulse Rate 91 H 88 89 Pulse Rate [ From Monitor] Respiratory 20 14 18 Rate Blood Pressure 100/60 104/62 99/61 O2 Sat by Pulse 100 100 100 Oximetry 01/04/19 01/04/19 01/04/19 01:41 01:51 02:00 Temperature Pulse Rate 93 H 86 92 H Pulse Rate [ From Monitor] Respiratory 20 17 20 Rate Blood Pressure 104/62 96/61 101/61 O2 Sat by Pulse 100 100 99 Oximetry 01/04/19 01/04/19 01/04/19 02:10 02:21 02:30 Temperature Pulse Rate 92 H 84 88 Pulse Rate [ From Monitor] Respiratory 23 16 20 Rate Blood Pressure 101/61 105/66 100/62 O2 Sat by Pulse 100 100 100 Oximetry 02/19/19 02/19/19 02/19/19 02:41 02:51 03:00 Temperature Pulse Rate 95 H 91 H 92 H Pulse Rate [ From Monitor] Respiratory 18 19 Rate Blood Pressure 100/62 85/49 95/59 O2 Sat by Pulse 99 100 100 Oximetry 01/04/19 01/04/19 01/04/19 03:11 03:20 03:30 Temperature Pulse Rate 96 H 94 H 88 Pulse Rate [ From Monitor] Respiratory 11 06 19 Rate Blood Pressure 95/59 95/71 95/64 O2 Sat by Pulse 98 95 100 Oximetry 01/04/19 01/04/19 01/04/19 03:41 03:51 04:00 Temperature 98.6 F Pulse Rate 90 86 90 Pulse Rate [ 90 From Monitor] Respiratory 18 16 Rate Blood Pressure 95/64 99/65 101/57 O2 Sat by Pulse 100 100 100 Oximetry 01/04/19 01/04/19 01/04/19 04:11 04:21 04:30 Temperature Pulse Rate 92 H 91 H 85 Pulse Rate [ From Monitor] Respiratory Rate Blood Pressure 101/57 104/62 97/62 O2 Sat by Pulse 100 100 100 Oximetry 01/04/19 01/04/19 01/04/19 04:41 04:51 05:00 Temperature Pulse Rate 93 H 88 93 H Pulse Rate [ From Monitor] Respiratory 21 Rate Blood Pressure 97/62 100/64 88/58 O2 Sat by Pulse 100 100 100 Oximetry 01/04/19 01/04/19 01/04/19 05:11 05:21 05:30 Temperature Pulse Rate 93 H 87 87 Pulse Rate [ From Monitor] Respiratory 17 16 Rate Blood Pressure 88/58 88/58 80/47 O2 Sat by Pulse 100 100 100 Oximetry 01/04/19 01/04/19 01/04/19 05:41 05:51 06:00 Temperature Pulse Rate 84 88 85 Pulse Rate [ From Monitor] Respiratory 16 17 17 Rate Blood Pressure 80/47 94/60 74/47 O2 Sat by Pulse 100 99 100 Oximetry 01/04/19 01/04/19 01/04/19 06:11 06:21 06:30 Temperature Pulse Rate 80 87 89 Pulse Rate [ From Monitor] Respiratory 15 16 20 Rate Blood Pressure 74/47 78/47 87/53 O2 Sat by Pulse 100 100 100 Oximetry 01/04/19 01/04/19 01/04/19 06:41 06:51 07:01 Temperature Pulse Rate 86 87 90 Pulse Rate [ From Monitor] Respiratory 18 17 18 Rate Blood Pressure 80/53 96/69 87/50 O2 Sat by Pulse 100 99 98 Oximetry 01/04/19 01/04/19 01/04/19 07:10 07:21 07:31 Temperature Pulse Rate 100 H 100 H 91 H Pulse Rate [ From Monitor] Respiratory 22 22 30 H Rate Blood Pressure 84/55 104/67 103/66 O2 Sat by Pulse 91 99 97 Oximetry 01/04/19 01/04/19 01/04/19 07:41 07:51 08:00 Temperature 96.5 F L Pulse Rate 94 H 95 H 90 Pulse Rate [ 91 H From Monitor] Respiratory 23 29 H 19 Rate Blood Pressure 103/66 102/68 98/66 O2 Sat by Pulse 97 96 100 Oximetry 01/04/19 08:35 Temperature Pulse Rate Pulse Rate [ From Monitor] Respiratory Rate Blood Pressure O2 Sat by Pulse 100 Oximetry - Lab 01/04/19 04:21 01/04/19 04:21 Most recent lab results Calcium 7.5 mg/dL (8.4-10.2) L 01/04/19 04:21 Medications & Allergies - Medications Allergies/Adverse Reactions: Allergies No Known Allergies Allergy (Verified 01/01/19 23:23) Active Medications: Generic Name Dose Route Start Last Admin Trade Name Freq PRN Reason Stop Dose Admin Norepinephrine 4 mg in 250 mls @ 7.5 mls/hr 01/01/19 23:45 01/04/19 06:30 Levophed Drip 4 Mg/Ns 250 Ml IV 4 mcg/min TITR LORI 15 mls/hr Titration Protocol 2 MCG/MIN Vancomycin HCl 1,500 mg/ 530 mls @ 333.333 mls/hr 01/02/19 18:00 01/03/19 20:33 Sodium Chloride IV 333.333 mls/hr Q24H LORI Administration Cefepime HCl 2 gm in 100 mls @ 200 mls/hr 01/02/19 10:00 01/03/19 22:52 Maxipime/Ns 2 Gm/100 Ml IV 200 mls/hr Q12HR LORI Administration Octreotide Acetate 500 mcg/ 101 mls @ 5.05 mls/hr 01/02/19 14:00 01/03/19 18:53 Sodium Chloride IV 25 mcg/hr TITR LORI 5.05 mls/hr Administration Protocol 25 MCG/HR Pantoprazole Sodium 80 mg/ 100 mls @ 10 mls/hr 01/02/19 14:00 01/03/19 23:33 Sodium Chloride IV 8 mg/hr DIRECT LORI 10 mls/hr Administration 8 MG/HR Magnesium Sulfate 2 gm in 50 mls @ 25 mls/hr 01/04/19 09:00 Magnesium Sulfate 2gm/50ml IV 01/04/19 10:59 ONCE ONE Potassium Chloride 20 meq in 100 mls @ 100 mls/hr 01/04/19 09:00 01/04/19 09:16 Kcl 20meq/100ml IV 01/04/19 10:59 100 mls/hr Q1H LORI Administration Dextrose/Sodium Chloride 1,000 mls @ 100 mls/hr 01/04/19 09:00 D5ns IV DIRECT LORI Ondansetron HCl 4 mg 01/02/19 01:49 01/02/19 11:45 Zofran IV 4 mg Q8H PRN Administration Nausea And Vomiting
[2019-01-04] MEDS: MORPHINE IV PRN ×2 (10:07→16:19)
[2019-01-04] MEDS: PROTONIX 80 MG in NACL 0.9% 100 ML IV SCH ×2 (10:11→20:04)
[2019-01-04] MEDS: MAXIPIME/NS 2 GM/100 ML 2 GM/100 ML BAG IV SCH (12:07)
--- NOTE | 2019-01-04 14:37 | Consultation ---
History of Present Illness - Reason for Consult Consult date: 01/04/19 Sepsis, ?SBP Requesting physician: OWEN MCINTOSH - History of Present Illness The patient is a 68-year-old male with chronic hepatitis C and associated liver cirrhosis with ascites was admitted through the emergency room on 01/01/2019 with altered mental status. Apparently, there was also some concern for possible hematemesis with blackish stuff being found in his mouth. On 01/03/2019, the patient underwent therapeutic paracentesis, about 9 L of ascitic fluid was drained following which the patient developed hypotension requiring pressors. He also later underwent an EGD which showed a distal esophageal ulcer and large esophageal varices which were banded. Patient is currently on IV Protonix and octreotide drip. ID was consulted due to concerns for possible sepsis and question of SBP. The patient is currently in ICU, he has been afebrile throughout hospitalization. He is currently confused, thinks he is on the morning. Does not appear to be in any distress. He is off pressors. Discussed with RN and chart reviewed. Review of Systems: Cannot be obtained reliably due to patient's confusion. Past History Past Medical History: liver disease, other (hepatitis c) Social history: alcohol abuse Family history: hypertension Medications and Allergies Allergies Allergy/AdvReac Type Severity Reaction Status Date / Time No Known Allergies Allergy Verified 01/01/19 23:23 Active Meds: Active Medications Norepinephrine (Levophed Drip 4 Mg/Ns 250 Ml) 4 mg in 250 mls @ 7.5 mls/hr IV TITR LORI; Protocol Last Titration: 01/04/19 11:00 Dose: 0 mcg/min, 0 mls/hr Documented by: Cefepime HCl (Maxipime/Ns 2 Gm/100 Ml) 2 gm in 100 mls @ 200 mls/hr IV Q12HR LORI Last Admin: 01/04/19 12:07 Dose: 200 mls/hr Documented by: Octreotide Acetate 500 mcg/ (Sodium Chloride) 101 mls @ 5.05 mls/hr IV TITR LORI; Protocol Last Admin: 01/03/19 18:53 Dose: 25 mcg/hr, 5.05 mls/hr Documented by: Pantoprazole Sodium 80 mg/ (Sodium Chloride) 100 mls @ 10 mls/hr IV DIRECT LORI Last Admin: 01/04/19 10:11 Dose: 8 mg/hr, 10 mls/hr Documented by: Dextrose/Sodium Chloride (D5ns) 1,000 mls @ 100 mls/hr IV DIRECT LORI Morphine Sulfate (Morphine) 2 mg IV Q4H PRN PRN Reason: Pain, Moderate (4-6) Last Admin: 01/04/19 10:07 Dose: 2 mg Documented by: Ondansetron HCl (Zofran) 4 mg IV Q8H PRN PRN Reason: Nausea And Vomiting Last Admin: 01/02/19 11:45 Dose: 4 mg Documented by: Physical Examination - Physical Exam Narrative exam: Physical Exam: Constitutional: Alert, cooperative. No acute distress Head, Ears, Nose: Normocephalic, atraumatic. External ears, nose normal Eyes: Conjunctivae/corneas clear. No icterus. No ptosis. Neck: Supple, no meningeal signs Oral: no thrush Cardiovascular: S1, S2 normal, tachycardic. Respiratory: Good air entry, clear to auscultation bilaterally GI: Distended, non-tender; bowel sounds normal. No peritoneal signs Musculoskeletal: No pedal edema, no cyanosis. Skin: No rash or abscess Hem/Lymphatic: No palpable cervical or supraclavicular nodes. No lymphangitis Psych: flat affect Neurological: Awake, alert, not oriented. - Constitutional Vitals: Vital Signs Temp Pulse Resp BP Pulse Ox 96.7 F L 87 15 80/58 100 01/04/19 12:00 01/04/19 14:21 01/04/19 14:21 01/04/19 14:21 01/04/19 14:21 Temperature -Last 24 Hours Temperature 96.7 F Temperature 96.5 F Temperature 98.6 F Temperature 98.6 F Temperature 97 F Temperature 97.7 F Results - Labs CBC & Chem 7: 01/04/19 04:21 01/04/19 04:21 Labs: Abnormal lab results 01/02/19 01/03/19 01/04/19 Range/Units 08:19 17:06 04:21 RBC 3.01 L 3.30 L (3.65-5.03) M/mm3 Hgb 9.5 L 10.4 L (11.8-15.2) gm/dl Hct 27.0 L 29.9 L (35.5-45.6) % MCHC 35 H 35 H (32-34) % RDW 16.2 H 16.5 H (13.2-15.2) % Plt Count 81 L 76 L (140-440) K/mm3 Sodium (137-145) mmol/L Potassium (3.6-5.0) mmol/L BUN (9-20) mg/dL Glucose (75-100) mg/dL Calcium (8.4-10.2) mg/dL Crossmatch See Detail 01/04/19 Range/Units 04:21 RBC (3.65-5.03) M/mm3 Hgb (11.8-15.2) gm/dl Hct (35.5-45.6) % MCHC (32-34) % RDW (13.2-15.2) % Plt Count (140-440) K/mm3 Sodium 135 L (137-145) mmol/L Potassium 3.2 L (3.6-5.0) mmol/L BUN 32 H (9-20) mg/dL Glucose 114 H (75-100) mg/dL Calcium 7.5 L (8.4-10.2) mg/dL Crossmatch - Imaging and Cardiology Chest x-ray: report reviewed, image reviewed (Chest x-ray on admission shows bilateral hypoinflated lung ahn but no evidence of obvious pneumonia.) CT scan - abdomen: report reviewed, image reviewed (CT abdomen and pelvis without contrast showed significant ascites and liver cirrhosis.) CT Scan - head: report reviewed, image reviewed (CT brain was unremarkable.) Assessment and Plan Cultures: 01/01/2019 blood culture: No growth 01/01/2019 urine culture: No growth 01/03/2019 ascitic fluid cultures: no growth at 24 hours A/P: 68-year-old male with chronic hepatitis C and associated liver cirrhosis with ascites admitted with: #1 Hypotension and shock: Ascitic fluid analysis not consistent with SBP. Hypotension following large volume paracentesis. Also with GI bleed. No evidence of pneumonia or urinary tract infection. Bacteremia also ruled out. Ascitic fluid cultures with no growth. Off pressors now. Low suspicion for an infectious process. Discontinued vancomycin and cefepime. Started ceftriaxone for now. #2 Acute anemia with GI bleed: Patient with esophageal ulcer and varices. Status post EGD and variceal banding. #3 Acute kidney injury: Improving. Nephrology following. 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 Overall prognosis is guarded. #5 Acute encephalopathy: likely multifactorial. Recs: Discontinued vancomycin and cefepime Started IV ceftriaxone 2 gm q24 hrs Overall guarded prognosis Iveth Bhagat MD [facility] C: [phone] O: [phone] F: [phone]
--- NOTE | 2019-01-04 14:43 | Progress Note ---
Assessment and Plan Imp: 1. SIRS, nothing to suggest sepsis 2. Decompensated cirrhosis 3. ROBERTO 4. Metabolic encephalopathy 5. Ascites 6. GI bleed 2/2 esophageal varices 7. Hyponatremia, better Rec: 1. Ascitic fluid negative for SBP, cultures negative; reason for decompensation likely UGIB not infection; f/u ID recs 2. Cont. Levophed as needed to keep MAP > 65; on IVFs for now; K repleted 3. Monitor H/H 4. SCDs 5. Cont. PPI/Octreotide; f/u GI recs 6. Hopefully ascites can ultimately be managed with diuretics once hemodynamics stabilize 7. Try to obtain PICC line and remove femoral line 8. No family present; prognosis is guarded CCT 31 min Subjective Date of service: 01/04/19 Principal diagnosis: roberto Interval history: Off Levophed again. Arousable but confused. No obvious complaints. Had EGD with banding of varices x 2, esophageal ulcer also noted. No further bleeding reported. Active Medications Norepinephrine (Levophed Drip 4 Mg/Ns 250 Ml) 4 mg in 250 mls @ 7.5 mls/hr IV TITR LORI; Protocol Last Titration: 01/04/19 11:00 Dose: 0 mcg/min, 0 mls/hr Documented by: Octreotide Acetate 500 mcg/ (Sodium Chloride) 101 mls @ 5.05 mls/hr IV TITR LORI; Protocol Last Admin: 01/03/19 18:53 Dose: 25 mcg/hr, 5.05 mls/hr Documented by: Pantoprazole Sodium 80 mg/ (Sodium Chloride) 100 mls @ 10 mls/hr IV DIRECT LORI Last Admin: 01/04/19 10:11 Dose: 8 mg/hr, 10 mls/hr Documented by: Dextrose/Sodium Chloride (D5ns) 1,000 mls @ 100 mls/hr IV DIRECT LORI Ceftriaxone Sodium (Rocephin/Ns 2 Gm/100 Ml) 2 gm in 100 mls @ 200 mls/hr IV Q24HR LORI; Protocol Morphine Sulfate (Morphine) 2 mg IV Q4H PRN PRN Reason: Pain, Moderate (4-6) Last Admin: 01/04/19 10:07 Dose: 2 mg Documented by: Ondansetron HCl (Zofran) 4 mg IV Q8H PRN PRN Reason: Nausea And Vomiting Last Admin: 01/02/19 11:45 Dose: 4 mg Documented by: Objective Vital Signs - 12hr 01/04/19 01/04/19 01/04/19 02:41 02:51 03:00 Temperature Pulse Rate 95 H 91 H 92 H Pulse Rate [ From Monitor] Respiratory 19 Rate Blood Pressure 100/62 85/49 95/59 O2 Sat by Pulse 99 100 100 Oximetry 01/04/19 01/04/19 01/04/19 03:11 03:20 03:30 Temperature Pulse Rate 96 H 94 H 88 Pulse Rate [ From Monitor] Respiratory 11 06 19 Rate Blood Pressure 95/59 95/71 95/64 O2 Sat by Pulse 98 95 100 Oximetry 01/04/19 01/04/19 01/04/19 03:41 03:51 04:00 Temperature 98.6 F Pulse Rate 90 86 90 Pulse Rate [ 90 From Monitor] Respiratory 18 15 16 Rate Blood Pressure 95/64 99/65 101/57 O2 Sat by Pulse 100 100 100 Oximetry 01/04/19 01/04/19 01/04/19 04:11 04:21 04:30 Temperature Pulse Rate 92 H 91 H 85 Pulse Rate [ From Monitor] Respiratory 17 15 Rate Blood Pressure 101/57 104/62 97/62 O2 Sat by Pulse 100 100 100 Oximetry 01/04/19 01/04/19 01/04/19 04:41 04:51 05:00 Temperature Pulse Rate 93 H 88 93 H Pulse Rate [ From Monitor] Respiratory 17 15 21 Rate Blood Pressure 97/62 100/64 88/58 O2 Sat by Pulse 100 100 100 Oximetry 01/04/19 01/04/19 01/04/19 05:11 05:21 05:30 Temperature Pulse Rate 93 H 87 87 Pulse Rate [ From Monitor] Respiratory 17 16 Rate Blood Pressure 88/58 88/58 80/47 O2 Sat by Pulse 100 100 100 Oximetry 01/04/19 01/04/19 01/04/19 05:41 05:51 06:00 Temperature Pulse Rate 84 88 85 Pulse Rate [ From Monitor] Respiratory 16 17 17 Rate Blood Pressure 80/47 94/60 74/47 O2 Sat by Pulse 100 99 100 Oximetry 01/04/19 01/04/19 01/04/19 06:11 06:21 06:30 Temperature Pulse Rate 80 87 89 Pulse Rate [ From Monitor] Respiratory 15 16 20 Rate Blood Pressure 74/47 78/47 87/53 O2 Sat by Pulse 100 100 100 Oximetry 01/04/19 01/04/19 01/04/19 06:41 06:51 07:01 Temperature Pulse Rate 86 87 90 Pulse Rate [ From Monitor] Respiratory 18 17 18 Rate Blood Pressure 80/53 96/69 87/50 O2 Sat by Pulse 100 99 98 Oximetry 01/04/19 01/04/19 01/04/19 07:10 07:21 07:31 Temperature Pulse Rate 100 H 100 H 91 H Pulse Rate [ From Monitor] Respiratory 22 22 30 H Rate Blood Pressure 84/55 104/67 103/66 O2 Sat by Pulse 91 99 97 Oximetry 01/04/19 01/04/19 01/04/19 07:41 07:51 08:00 Temperature 96.5 F L Pulse Rate 94 H 95 H 90 Pulse Rate [ 91 H From Monitor] Respiratory 23 29 H 19 Rate Blood Pressure 103/66 102/68 98/66 O2 Sat by Pulse 97 96 100 Oximetry 01/04/19 01/04/19 01/04/19 08:11 08:21 08:30 Temperature Pulse Rate 98 H 87 84 Pulse Rate [ From Monitor] Respiratory 21 16 15 Rate Blood Pressure 98/66 98/66 108/69 O2 Sat by Pulse 100 100 100 Oximetry 01/04/19 01/04/19 01/04/19 08:35 08:41 08:51 Temperature Pulse Rate 94 H 89 Pulse Rate [ From Monitor] Respiratory 24 15 Rate Blood Pressure 108/69 98/66 O2 Sat by Pulse 100 98 99 Oximetry 01/04/19 01/04/19 01/04/19 09:00 09:11 09:21 Temperature Pulse Rate 102 H 94 H 91 H Pulse Rate [ From Monitor] Respiratory 24 20 16 Rate Blood Pressure 112/66 112/66 106/67 O2 Sat by Pulse 97 100 98 Oximetry 01/04/19 01/04/19 01/04/19 09:31 09:41 09:51 Temperature Pulse Rate 96 H 102 H 93 H Pulse Rate [ From Monitor] Respiratory 24 15 17 Rate Blood Pressure 97/61 97/61 86/68 O2 Sat by Pulse 97 95 100 Oximetry 01/04/19 01/04/19 01/04/19 10:00 10:11 10:21 Temperature Pulse Rate 92 H 93 H 89 Pulse Rate [ From Monitor] Respiratory 19 19 13 Rate Blood Pressure 96/72 96/72 102/68 O2 Sat by Pulse 100 100 100 Oximetry 01/04/19 01/04/19 01/04/19 10:30 10:41 10:51 Temperature Pulse Rate 85 89 87 Pulse Rate [ From Monitor] Respiratory 15 14 13 Rate Blood Pressure 99/69 99/69 97/71 O2 Sat by Pulse 100 100 100 Oximetry 01/04/19 01/04/19 01/04/19 11:00 11:11 11:21 Temperature Pulse Rate 89 83 83 Pulse Rate [ From Monitor] Respiratory 15 14 18 Rate Blood Pressure 100/69 100/69 99/67 O2 Sat by Pulse 100 100 100 Oximetry 01/04/19 01/04/19 01/04/19 11:30 11:41 11:51 Temperature Pulse Rate 86 85 86 Pulse Rate [ From Monitor] Respiratory 12 14 14 Rate Blood Pressure 92/65 92/65 95/65 O2 Sat by Pulse 100 100 100 Oximetry 01/04/19 01/04/19 01/04/19 12:00 12:11 12:21 Temperature 96.7 F L Pulse Rate 83 86 84 Pulse Rate [ 84 From Monitor] Respiratory 16 13 14 Rate Blood Pressure 94/67 94/67 94/64 O2 Sat by Pulse 100 100 100 Oximetry 01/04/19 01/04/19 01/04/19 12:30 12:41 12:51 Temperature Pulse Rate 83 87 83 Pulse Rate [ From Monitor] Respiratory 14 14 13 Rate Blood Pressure 98/68 98/68 93/65 O2 Sat by Pulse 100 96 100 Oximetry 01/04/19 01/04/19 01/04/19 13:00 13:11 13:21 Temperature Pulse Rate 85 83 92 H Pulse Rate [ From Monitor] Respiratory 17 18 14 Rate Blood Pressure 95/66 95/66 97/65 O2 Sat by Pulse 100 100 100 Oximetry 01/04/19 01/04/19 01/04/19 13:30 13:41 13:51 Temperature Pulse Rate 87 84 87 Pulse Rate [ From Monitor] Respiratory 11 L 15 14 Rate Blood Pressure 91/65 91/65 92/64 O2 Sat by Pulse 100 100 100 Oximetry 01/04/19 01/04/19 01/04/19 14:00 14:11 14:21 Temperature Pulse Rate 83 83 87 Pulse Rate [ From Monitor] Respiratory 12 11 L 15 Rate Blood Pressure 90/67 90/67 80/58 O2 Sat by Pulse 100 100 100 Oximetry Constitutional: other (critically ill ) Eyes: icteric ENT: oropharynx moist Neck: supple Effort: normal Ascultation: Bilateral: clear, diminished breath sounds (Limited excursions with associated ascites) Cardiovascular: regular rate and rhythm (no mrg) Gastrointestinal: normoactive bowel sounds, other (ascites, prominent -> worse compared to 01/03/19) Integumentary: normal Extremities: no cyanosis, pink and warm, edema (2+ bilateral LE edema) Neurologic: non-focal exam, other (somnolent but able to follow most of my questions. Appears to be oriented in place and partially in time) Psychiatric: mood appropriate, affect normal CBC and BMP: 01/04/19 04:21 01/04/19 04:21 ABG, PT/INR, D-dimer: PT/INR, D-dimer PT 18.4 Sec. (12.2-14.9) H 01/03/19 08:02 INR 1.43 (0.87-1.13) H 01/03/19 08:02 Abnormal lab findings: Abnormal Labs 01/01/19 01/01/19 01/01/19 02:22 21:16 21:25 WBC 14.9 H RBC Hgb Hct MCHC 35 H RDW 16.1 H Plt Count Lymph % (Auto) [place] % (Auto) Lymph # Seg Neutrophils % Lymphocytes % (Manual) 2.0 L Seg Neutrophils # Man 10.1 H Lymphocytes # (Manual) 0.3 L PT INR Sodium Potassium Chloride Carbon Dioxide BUN Creatinine Glucose POC Glucose 106 H Lactic Acid Calcium TIBC Ferritin Total Bilirubin Direct Bilirubin AST Total Protein Albumin Urine WBC (Auto) 27.0 H Hepatitis C Antibody Crossmatch 01/01/19 01/01/19 01/01/19 21:25 21:25 21:25 WBC RBC Hgb Hct MCHC RDW Plt Count Lymph % (Auto) [place] % (Auto) Lymph # Seg Neutrophils % Lymphocytes % (Manual) Seg Neutrophils # Man Lymphocytes # (Manual) PT 16.7 H INR 1.27 H Sodium 124 L Potassium Chloride 80.3 L Carbon Dioxide 21 L BUN 25 H Creatinine 1.7 H Glucose 117 H POC Glucose Lactic Acid 3.50 H* Calcium TIBC Ferritin Total Bilirubin 2.40 H Direct Bilirubin AST 200 H Total Protein Albumin 2.6 L Urine WBC (Auto) Hepatitis C Antibody Crossmatch 01/01/19 01/01/19 01/02/19 22:26 23:23 04:29 WBC RBC Hgb Hct MCHC RDW Plt Count Lymph % (Auto) [place] % (Auto) Lymph # Seg Neutrophils % Lymphocytes % (Manual) Seg Neutrophils # Man Lymphocytes # (Manual) PT INR Sodium Potassium Chloride Carbon Dioxide BUN Creatinine Glucose POC Glucose Lactic Acid 2.80 H* 2.10 H* 2.30 H* Calcium TIBC Ferritin Total Bilirubin Direct Bilirubin AST Total Protein Albumin Urine WBC (Auto) Hepatitis C Antibody Crossmatch 01/02/19 01/02/19 01/02/19 04:29 08:07 08:19 WBC RBC Hgb 11.3 L Hct 32.4 L MCHC RDW Plt Count Lymph % (Auto) [place] % (Auto) Lymph # Seg Neutrophils % Lymphocytes % (Manual) Seg Neutrophils # Man Lymphocytes # (Manual) PT INR Sodium 124 L Potassium Chloride 86.0 L Carbon Dioxide 17 L BUN 26 H Creatinine Glucose 104 H POC Glucose 109 H Lactic Acid Calcium 7.8 L TIBC Ferritin Total Bilirubin Direct Bilirubin AST Total Protein Albumin Urine WBC (Auto) Hepatitis C Antibody Crossmatch 01/02/19 01/02/19 01/02/19 08:19 11:46 14:20 WBC RBC Hgb 10.6 L Hct 30.8 L MCHC RDW Plt Count Lymph % (Auto) [place] % (Auto) Lymph # Seg Neutrophils % Lymphocytes % (Manual) Seg Neutrophils # Man Lymphocytes # (Manual) PT INR Sodium Potassium Chloride Carbon Dioxide BUN Creatinine Glucose POC Glucose Lactic Acid Calcium TIBC 160 L Ferritin Total Bilirubin 1.70 H Direct Bilirubin 1.0 H AST 132 H Total Protein 5.6 L Albumin 2.6 L Urine WBC (Auto) Hepatitis C Antibody Crossmatch See Detail 01/02/19 01/02/19 01/02/19 14:20 14:20 18:08 WBC RBC Hgb 9.1 L Hct 26.2 L MCHC RDW Plt Count Lymph % (Auto) [place] % (Auto) Lymph # Seg Neutrophils % Lymphocytes % (Manual) Seg Neutrophils # Man Lymphocytes # (Manual) PT INR Sodium Potassium Chloride Carbon Dioxide BUN Creatinine Glucose POC Glucose Lactic Acid Calcium TIBC Ferritin 1071.0 H Total Bilirubin Direct Bilirubin AST Total Protein Albumin Urine WBC (Auto) Hepatitis C Antibody Reactive A Crossmatch 01/03/19 01/03/19 01/03/19 00:45 05:05 05:05 WBC RBC 2.66 L Hgb 9.1 L 8.4 L Hct 26.1 L 24.1 L MCHC 35 H RDW 16.3 H Plt Count 101 L Lymph % (Auto) 10.6 L [place] % (Auto) 11.3 H Lymph # 0.8 L Seg Neutrophils % 78.0 H Lymphocytes % (Manual) Seg Neutrophils # Man Lymphocytes # (Manual) PT INR Sodium 132 L D Potassium 3.2 L D Chloride 92.1 L Carbon Dioxide BUN 34 H Creatinine 1.8 H Glucose 163 H POC Glucose Lactic Acid Calcium 7.7 L TIBC Ferritin Total Bilirubin 1.70 H Direct Bilirubin AST 93 H Total Protein 5.1 L Albumin 2.5 L Urine WBC (Auto) Hepatitis C Antibody Crossmatch 01/03/19 01/03/19 01/04/19 08:02 17:06 04:21 WBC RBC 3.01 L 3.30 L Hgb 9.5 L 10.4 L Hct 27.0 L 29.9 L MCHC 35 H 35 H RDW 16.2 H 16.5 H Plt Count 81 L 76 L Lymph % (Auto) [place] % (Auto) Lymph # Seg Neutrophils % Lymphocytes % (Manual) Seg Neutrophils # Man Lymphocytes # (Manual) PT 18.4 H INR 1.43 H Sodium Potassium Chloride Carbon Dioxide BUN Creatinine Glucose POC Glucose Lactic Acid Calcium TIBC Ferritin Total Bilirubin Direct Bilirubin AST Total Protein Albumin Urine WBC (Auto) Hepatitis C Antibody Crossmatch 01/04/19 04:21 WBC RBC Hgb Hct MCHC RDW Plt Count Lymph % (Auto) [place] % (Auto) Lymph # Seg Neutrophils % Lymphocytes % (Manual) Seg Neutrophils # Man Lymphocytes # (Manual) PT INR Sodium 135 L Potassium 3.2 L Chloride Carbon Dioxide BUN 32 H Creatinine Glucose 114 H POC Glucose Lactic Acid Calcium 7.5 L TIBC Ferritin Total Bilirubin Direct Bilirubin AST Total Protein Albumin Urine WBC (Auto) Hepatitis C Antibody Crossmatch Chest x-ray: report reviewed, image reviewed
[2019-01-04 14:46] LABS: Hemoglobin 11.2 gm/dl (11.8-15.2)
[2019-01-04] MEDS: D5NS 1,000 ML IV SCH (16:19)
[2019-01-04] MEDS: SandoSTATIN 500 MCG in NACL 0.9% 100 ML IV SCH (16:30)
[2019-01-04] MEDS: ROCEPHIN/NS 2 GM/100 ML 2 GM/100 ML BAG IV SCH (17:45)
[2019-01-05 05:59] LABS: Hematocrit 31.9 % (35.5-45.6); Hemoglobin 10.9 gm/dl (11.8-15.2); Mean Corpuscular HGB Conc 34 % (32-34); Mean Corpuscular Volume 91 fl (84-94); Red Blood Count 3.49 M/mm3 (3.65-5.03); Red Cell Distribution Width 16.5 % (13.2-15.2)
[2019-01-05 06:01] LABS: Platelet Count 69 K/mm3 (140-440)
[2019-01-05 06:15] LABS: Alanine Aminotransferase 22 units/L (7-56); BUN/Creatinine Ratio 24; Blood Urea Nitrogen 31 mg/dL (9-20); Calcium 7.3 mg/dL (8.4-10.2); Hemolysis Index 13
[2019-01-05] MEDS: PROTONIX 80 MG in NACL 0.9% 100 ML IV SCH (07:10)
[2019-01-05] MEDS: ROCEPHIN/NS 2 GM/100 ML 2 GM/100 ML BAG IV SCH (10:04)
--- NOTE | 2019-01-05 10:22 | Progress Note ---
Assessment and Plan Imp: 1. SIRS, nothing to suggest sepsis 2. Decompensated cirrhosis 3. ROBERTO 4. Metabolic encephalopathy 5. Ascites 6. GI bleed 2/2 esophageal varices 7. Hyponatremia, better Rec: 1. Ascitic fluid negative for SBP, cultures negative; reason for decompensation likely UGIB not infection; f/u ID recs 2. Off Pressors; monitor on IVFs 3. Monitor H/H 4. SCDs 5. Cont. PPI/Octreotide as per GI recs 6. Hopefully ascites can ultimately be managed with diuretics once hemodynamics stabilize 7. PT/OT 8. Advance diet to full liquids 9. Can transfer out of ICU w/ remote tele or to [facility] unit Plan of care reviewed w/ patient, he understands/agrees Subjective Date of service: 01/05/19 Principal diagnosis: roberto Interval history: Remains off Levophed. More alert. Complaining a lot this morning. Denies SOB, chest pain, cough, abd pain. No bleeding. Active Medications Norepinephrine (Levophed Drip 4 Mg/Ns 250 Ml) 4 mg in 250 mls @ 7.5 mls/hr IV TITR LORI; Protocol Last Titration: 01/04/19 11:00 Dose: 0 mcg/min, 0 mls/hr Documented by: Octreotide Acetate 500 mcg/ (Sodium Chloride) 101 mls @ 5.05 mls/hr IV TITR LORI; Protocol Last Admin: 01/04/19 16:30 Dose: 25 mcg/hr, 5.05 mls/hr Documented by: Pantoprazole Sodium 80 mg/ (Sodium Chloride) 100 mls @ 10 mls/hr IV DIRECT LORI Last Admin: 01/05/19 07:10 Dose: 8 mg/hr, 10 mls/hr Documented by: Dextrose/Sodium Chloride (D5ns) 1,000 mls @ 100 mls/hr IV DIRECT LORI Last Admin: 01/04/19 16:19 Dose: 100 mls/hr Documented by: Ceftriaxone Sodium (Rocephin/Ns 2 Gm/100 Ml) 2 gm in 100 mls @ 200 mls/hr IV Q24HR LORI; Protocol Last Admin: 01/05/19 10:04 Dose: 200 mls/hr Documented by: Morphine Sulfate (Morphine) 2 mg IV Q4H PRN PRN Reason: Pain, Moderate (4-6) Last Admin: 01/04/19 16:19 Dose: 2 mg Documented by: Ondansetron HCl (Zofran) 4 mg IV Q8H PRN PRN Reason: Nausea And Vomiting Last Admin: 01/02/19 11:45 Dose: 4 mg Documented by: Objective Vital Signs - 12hr 01/04/19 01/04/19 01/04/19 22:21 22:31 22:41 Temperature Pulse Rate 84 82 84 Pulse Rate [ From Monitor] Respiratory 11 L 11 L 12 Rate Blood Pressure 93/62 93/62 93/62 O2 Sat by Pulse 100 100 100 Oximetry 01/04/19 01/04/19 01/04/19 22:51 23:00 23:11 Temperature Pulse Rate 86 83 85 Pulse Rate [ From Monitor] Respiratory 13 11 L 12 Rate Blood Pressure 93/62 97/67 97/67 O2 Sat by Pulse 100 100 100 Oximetry 01/04/19 01/04/19 01/04/19 23:21 23:31 23:41 Temperature Pulse Rate 84 84 84 Pulse Rate [ From Monitor] Respiratory 11 L 12 12 Rate Blood Pressure 97/67 97/67 97/67 O2 Sat by Pulse 100 96 93 Oximetry 01/04/19 01/05/19 01/05/19 23:51 00:00 00:11 Temperature 98.0 F Pulse Rate 84 83 101 H Pulse Rate [ 86 From Monitor] Respiratory 11 L 12 17 Rate Blood Pressure 97/67 94/64 94/64 O2 Sat by Pulse 100 100 97 Oximetry 01/05/19 01/05/19 01/05/19 00:21 00:31 00:41 Temperature Pulse Rate 99 H 92 H 86 Pulse Rate [ From Monitor] Respiratory 18 12 Rate Blood Pressure 97/67 97/67 97/67 O2 Sat by Pulse 93 95 99 Oximetry 01/05/19 01/05/19 01/05/19 00:51 01:00 01:10 Temperature Pulse Rate 82 83 84 Pulse Rate [ From Monitor] Respiratory 11 L 12 11 L Rate Blood Pressure 94/64 100/70 100/70 O2 Sat by Pulse 99 99 99 Oximetry 01/05/19 01/05/19 01/05/19 01:21 01:31 01:41 Temperature Pulse Rate 86 84 87 Pulse Rate [ From Monitor] Respiratory 12 12 11 L Rate Blood Pressure 94/64 94/64 94/64 O2 Sat by Pulse 99 99 99 Oximetry 01/05/19 01/05/19 01/05/19 01:51 02:00 02:11 Temperature Pulse Rate 87 87 86 Pulse Rate [ From Monitor] Respiratory 12 12 12 Rate Blood Pressure 100/70 95/63 95/63 O2 Sat by Pulse 99 99 99 Oximetry 01/05/19 01/05/19 01/05/19 02:21 02:31 02:41 Temperature Pulse Rate 88 87 87 Pulse Rate [ From Monitor] Respiratory 12 12 12 Rate Blood Pressure 95/63 95/63 95/63 O2 Sat by Pulse 99 99 99 Oximetry 01/05/19 01/05/19 01/05/19 02:51 03:00 03:11 Temperature Pulse Rate 86 91 H 87 Pulse Rate [ From Monitor] Respiratory 13 12 Rate Blood Pressure 95/63 95/62 95/62 O2 Sat by Pulse 99 99 99 Oximetry 01/05/19 01/05/19 01/05/19 03:21 03:31 03:41 Temperature Pulse Rate 88 90 89 Pulse Rate [ From Monitor] Respiratory 13 12 Rate Blood Pressure 95/63 95/63 95/63 O2 Sat by Pulse 99 99 99 Oximetry 01/05/19 01/05/19 01/05/19 03:42 03:51 04:00 Temperature 98.3 F Pulse Rate 87 91 H Pulse Rate [ 86 From Monitor] Respiratory 12 11 L 13 Rate Blood Pressure 95/62 88/65 O2 Sat by Pulse 100 99 100 Oximetry 01/05/19 01/05/19 01/05/19 04:11 04:21 04:31 Temperature Pulse Rate 88 85 86 Pulse Rate [ From Monitor] Respiratory 11 L 11 L 11 L Rate Blood Pressure 88/65 88/65 81/60 O2 Sat by Pulse 99 100 99 Oximetry 01/05/19 01/05/19 01/05/19 04:41 04:51 05:00 Temperature Pulse Rate 89 88 85 Pulse Rate [ From Monitor] Respiratory 13 12 11 L Rate Blood Pressure 81/60 81/60 81/60 O2 Sat by Pulse 100 99 100 Oximetry 01/05/19 01/05/19 01/05/19 05:11 05:21 05:31 Temperature Pulse Rate 86 89 89 Pulse Rate [ From Monitor] Respiratory 11 L 12 13 Rate Blood Pressure 92/62 92/62 92/62 O2 Sat by Pulse 100 100 99 Oximetry 01/05/19 01/05/19 01/05/19 05:41 05:51 06:00 Temperature Pulse Rate 85 89 89 Pulse Rate [ From Monitor] Respiratory 10 L 12 13 Rate Blood Pressure 92/62 92/62 88/63 O2 Sat by Pulse 99 99 99 Oximetry 01/05/19 01/05/19 01/05/19 06:11 06:21 07:00 Temperature Pulse Rate 86 104 H 84 Pulse Rate [ From Monitor] Respiratory 11 L 18 11 L Rate Blood Pressure 88/63 88/63 92/59 O2 Sat by Pulse 100 100 99 Oximetry 01/05/19 01/05/19 07:01 08:00 Temperature 98.6 F Pulse Rate 87 Pulse Rate [ 93 H From Monitor] Respiratory 13 Rate Blood Pressure 87/64 O2 Sat by Pulse 100 100 Oximetry Constitutional: no acute distress, alert Eyes: icteric ENT: oropharynx moist Neck: supple Effort: normal Ascultation: Bilateral: clear, diminished breath sounds (Limited excursions with associated ascites) Cardiovascular: regular rate and rhythm (no mrg) Gastrointestinal: normoactive bowel sounds, other (ascites, prominent -> worse compared to 01/03/19) Integumentary: normal Extremities: no cyanosis, pink and warm, edema (2+ bilateral LE edema) Neurologic: normal mental status, non-focal exam, pupils equal and round Psychiatric: mood appropriate, affect normal CBC and BMP: 01/05/19 04:43 01/05/19 04:43 ABG, PT/INR, D-dimer: PT/INR, D-dimer PT 18.4 Sec. (12.2-14.9) H 01/03/19 08:02 INR 1.43 (0.87-1.13) H 01/03/19 08:02 Abnormal lab findings: Abnormal Labs 01/01/19 01/01/19 01/01/19 02:22 21:16 21:25 WBC 14.9 H RBC Hgb Hct MCHC 35 H RDW 16.1 H Plt Count Lymph % (Auto) Bradford % (Auto) Lymph # Seg Neutrophils % Lymphocytes % (Manual) 2.0 L Seg Neutrophils # Man 10.1 H Lymphocytes # (Manual) 0.3 L PT INR Sodium Potassium Chloride Carbon Dioxide BUN Creatinine Glucose POC Glucose 106 H Lactic Acid Calcium TIBC Ferritin Total Bilirubin Direct Bilirubin AST Alkaline Phosphatase Total Protein Albumin Urine WBC (Auto) 27.0 H Hepatitis C Antibody Crossmatch 01/01/19 01/01/19 01/01/19 21:25 21:25 21:25 WBC RBC Hgb Hct MCHC RDW Plt Count Lymph % (Auto) Bradford % (Auto) Lymph # Seg Neutrophils % Lymphocytes % (Manual) Seg Neutrophils # Man Lymphocytes # (Manual) PT 16.7 H INR 1.27 H Sodium 124 L Potassium Chloride 80.3 L Carbon Dioxide 21 L BUN 25 H Creatinine 1.7 H Glucose 117 H POC Glucose Lactic Acid 3.50 H* Calcium TIBC Ferritin Total Bilirubin 2.40 H Direct Bilirubin AST 200 H Alkaline Phosphatase Total Protein Albumin 2.6 L Urine WBC (Auto) Hepatitis C Antibody Crossmatch 01/01/19 01/01/19 01/02/19 22:26 23:23 04:29 WBC RBC Hgb Hct MCHC RDW Plt Count Lymph % (Auto) Bradford % (Auto) Lymph # Seg Neutrophils % Lymphocytes % (Manual) Seg Neutrophils # Man Lymphocytes # (Manual) PT INR Sodium Potassium Chloride Carbon Dioxide BUN Creatinine Glucose POC Glucose Lactic Acid 2.80 H* 2.10 H* 2.30 H* Calcium TIBC Ferritin Total Bilirubin Direct Bilirubin AST Alkaline Phosphatase Total Protein Albumin Urine WBC (Auto) Hepatitis C Antibody Crossmatch 01/02/19 01/02/19 01/02/19 04:29 08:07 08:19 WBC RBC Hgb 11.3 L Hct 32.4 L MCHC RDW Plt Count Lymph % (Auto) Bradford % (Auto) Lymph # Seg Neutrophils % Lymphocytes % (Manual) Seg Neutrophils # Man Lymphocytes # (Manual) PT INR Sodium 124 L Potassium Chloride 86.0 L Carbon Dioxide 17 L BUN 26 H Creatinine Glucose 104 H POC Glucose 109 H Lactic Acid Calcium 7.8 L TIBC Ferritin Total Bilirubin Direct Bilirubin AST Alkaline Phosphatase Total Protein Albumin Urine WBC (Auto) Hepatitis C Antibody Crossmatch 01/02/19 01/02/19 01/02/19 08:19 11:46 14:20 WBC RBC Hgb 10.6 L Hct 30.8 L MCHC RDW Plt Count Lymph % (Auto) Bradford % (Auto) Lymph # Seg Neutrophils % Lymphocytes % (Manual) Seg Neutrophils # Man Lymphocytes # (Manual) PT INR Sodium Potassium Chloride Carbon Dioxide BUN Creatinine Glucose POC Glucose Lactic Acid Calcium TIBC 160 L Ferritin Total Bilirubin 1.70 H Direct Bilirubin 1.0 H AST 132 H Alkaline Phosphatase Total Protein 5.6 L Albumin 2.6 L Urine WBC (Auto) Hepatitis C Antibody Crossmatch See Detail 01/02/19 01/02/19 01/02/19 14:20 14:20 18:08 WBC RBC Hgb 9.1 L Hct 26.2 L MCHC RDW Plt Count Lymph % (Auto) Bradford % (Auto) Lymph # Seg Neutrophils % Lymphocytes % (Manual) Seg Neutrophils # Man Lymphocytes # (Manual) PT INR Sodium Potassium Chloride Carbon Dioxide BUN Creatinine Glucose POC Glucose Lactic Acid Calcium TIBC Ferritin 1071.0 H Total Bilirubin Direct Bilirubin AST Alkaline Phosphatase Total Protein Albumin Urine WBC (Auto) Hepatitis C Antibody Reactive A Crossmatch 01/03/19 01/03/19 01/03/19 00:45 05:05 05:05 WBC RBC 2.66 L Hgb 9.1 L 8.4 L Hct 26.1 L 24.1 L MCHC 35 H RDW 16.3 H Plt Count 101 L Lymph % (Auto) 10.6 L Bradford % (Auto) 11.3 H Lymph # 0.8 L Seg Neutrophils % 78.0 H Lymphocytes % (Manual) Seg Neutrophils # Man Lymphocytes # (Manual) PT INR Sodium 132 L D Potassium 3.2 L D Chloride 92.1 L Carbon Dioxide BUN 34 H Creatinine 1.8 H Glucose 163 H POC Glucose Lactic Acid Calcium 7.7 L TIBC Ferritin Total Bilirubin 1.70 H Direct Bilirubin AST 93 H Alkaline Phosphatase Total Protein 5.1 L Albumin 2.5 L Urine WBC (Auto) Hepatitis C Antibody Crossmatch 01/03/19 01/03/19 01/04/19 08:02 17:06 04:21 WBC RBC 3.01 L 3.30 L Hgb 9.5 L 10.4 L Hct 27.0 L 29.9 L MCHC 35 H 35 H RDW 16.2 H 16.5 H Plt Count 81 L 76 L Lymph % (Auto) Bradford % (Auto) Lymph # Seg Neutrophils % Lymphocytes % (Manual) Seg Neutrophils # Man Lymphocytes # (Manual) PT 18.4 H INR 1.43 H Sodium Potassium Chloride Carbon Dioxide BUN Creatinine Glucose POC Glucose Lactic Acid Calcium TIBC Ferritin Total Bilirubin Direct Bilirubin AST Alkaline Phosphatase Total Protein Albumin Urine WBC (Auto) Hepatitis C Antibody Crossmatch 0201/04/19 01/04/19 04:21 14:18 22:46 WBC RBC Hgb 11.2 L 11.0 L Hct 33.0 L 32.0 L MCHC RDW Plt Count Lymph % (Auto) Bradford % (Auto) Lymph # Seg Neutrophils % Lymphocytes % (Manual) Seg Neutrophils # Man Lymphocytes # (Manual) PT INR Sodium 135 L Potassium 3.2 L Chloride Carbon Dioxide BUN 32 H Creatinine Glucose 114 H POC Glucose Lactic Acid Calcium 7.5 L TIBC Ferritin Total Bilirubin Direct Bilirubin AST Alkaline Phosphatase Total Protein Albumin Urine WBC (Auto) Hepatitis C Antibody Crossmatch 01/05/19 01/05/19 04:43 04:43 WBC RBC 3.49 L Hgb 10.9 L Hct 31.9 L MCHC RDW 16.5 H Plt Count 69 L Lymph % (Auto) Bradford % (Auto) Lymph # Seg Neutrophils % Lymphocytes % (Manual) Seg Neutrophils # Man Lymphocytes # (Manual) PT INR Sodium 133 L Potassium Chloride Carbon Dioxide BUN 31 H Creatinine Glucose 140 H POC Glucose Lactic Acid Calcium 7.3 L TIBC Ferritin Total Bilirubin 1.90 H Direct Bilirubin AST 45 H Alkaline Phosphatase 28 L Total Protein 4.1 L Albumin 2.0 L Urine WBC (Auto) Hepatitis C Antibody Crossmatch Chest x-ray: report reviewed, image reviewed
--- NOTE | 2019-01-05 10:37 | Progress Note ---
Assessment and Plan Cultures: 01/01/2019 blood culture: No growth 01/01/2019 urine culture: No growth 01/03/2019 ascitic fluid cultures: no growth at 24 hours A/P: 68-year-old male with chronic hepatitis C and associated liver cirrhosis with ascites admitted with: #1 Hypotension and shock: Ascitic fluid analysis not consistent with SBP. Hypotension following large volume paracentesis. Also with GI bleed. No evidence of pneumonia or urinary tract infection. Bacteremia also ruled out. Ascitic fluid cultures with no growth. Off pressors now. Low suspicion for an infectious process. Off vancomycin and cefepime, on ceftriaxone for now, continue x 3 more days, there is data regarding benefit with Ceftriaxone in the setting of v ariceal bleed. #2 Acute anemia with GI bleed: Patient with esophageal ulcer and varices. Status post EGD and variceal banding. #3 Acute kidney injury: Improving. Nephrology following. 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 Overall prognosis is guarded. #5 Acute encephalopathy: likely multifactorial. improving. Recs: continue IV ceftriaxone 2 gm q24 hrs x 3 more days (data showing benefit in the setting of variceal bleed) Iveth Bhagat MD [facility] C: [phone] O: [phone] F: [phone] Subjective Date of service: 01/05/19 Principal diagnosis: divya Interval history: No fever. No new complaints. Has remained stable per RN, plans for transfer out of ICU. Remains off pressors. More awake. Objective - Exam Narrative Exam: Physical Exam: Constitutional: Alert, cooperative. No acute distress Head, Ears, Nose: Normocephalic, atraumatic. External ears, nose normal Eyes: Conjunctivae/corneas clear. No icterus. No ptosis. Neck: Supple, no meningeal signs Oral: no thrush Cardiovascular: S1, S2 normal, tachycardic. Respiratory: Good air entry, clear to auscultation bilaterally GI: Distended, non-tender; bowel sounds normal. No peritoneal signs Musculoskeletal: 1+ b/l pedal edema Skin: No rash or abscess Hem/Lymphatic: No palpable cervical or supraclavicular nodes. No lymphangitis Psych: flat affect Neurological: Awake, alert, oriented to place. - Constitutional Vitals: Vital Signs Temp Pulse Resp BP Pulse Ox 98.6 F 93 H 13 87/64 100 01/05/19 08:00 01/05/19 08:00 01/05/19 08:00 01/05/19 08:00 01/05/19 08:00 Temperature -Last 24 Hours Temperature 98.6 F Temperature 98.3 F Temperature 98.0 F Temperature 97.6 F Temperature 97.0 F Temperature 96.7 F - Labs CBC & Chem 7: 01/05/19 04:43 01/05/19 04:43 Labs: Abnormal lab results 01/04/19 01/04/19 01/05/19 Range/Units 14:18 22:46 04:43 RBC 3.49 L (3.65-5.03) M/mm3 Hgb 11.2 L 11.0 L 10.9 L (11.8-15.2) gm/dl Hct 33.0 L 32.0 L 31.9 L (35.5-45.6) % RDW 16.5 H (13.2-15.2) % Plt Count 69 L (140-440) K/mm3 Sodium (137-145) mmol/L BUN (9-20) mg/dL Glucose (75-100) mg/dL Calcium (8.4-10.2) mg/dL Total Bilirubin (0.1-1.2) mg/dL AST (5-40) units/L Alkaline Phosphatase (35-129) units/L Total Protein (6.3-8.2) g/dL Albumin (3.9-5) g/dL 01/05/19 Range/Units 04:43 RBC (3.65-5.03) M/mm3 Hgb (11.8-15.2) gm/dl Hct (35.5-45.6) % RDW (13.2-15.2) % Plt Count (140-440) K/mm3 Sodium 133 L (137-145) mmol/L BUN 31 H (9-20) mg/dL Glucose 140 H (75-100) mg/dL Calcium 7.3 L (8.4-10.2) mg/dL Total Bilirubin 1.90 H (0.1-1.2) mg/dL AST 45 H (5-40) units/L Alkaline Phosphatase 28 L (35-129) units/L Total Protein 4.1 L (6.3-8.2) g/dL Albumin 2.0 L (3.9-5) g/dL
[2019-01-05] MEDS: SandoSTATIN 500 MCG in NACL 0.9% 100 ML IV SCH (12:20)
[2019-01-05] MEDS: D5NS 1,000 ML IV SCH (12:20)
--- NOTE | 2019-01-05 12:46 | Gastroenterology Progress Note ---
Addendum entered and electronically signed by NOLAN BARRETO MD 01/05/19 17:11: Patient seen and examined on 01/05/2019. # Cirrhosis # Variceal GI bleed # Ascites s/p EGD on 01/04/2019 with distal esophageal ulcer and large distal esophageal varices s/p banding ligation. - H/H stable - no signs of recurrent bleed. - continue with octreotide for total of 72 hr. - switch protonix to IV bid - monitor H/H. - cont with lactulose PO bid. Original Note: Assessment and Plan 1.cirrhosis 2.ascites -CT abdomen with small liver c/w cirrhosis -etiology-decompensated cirrhosis 2/2 likely HCV (HCV antibody positive) with a scites -s/p paracentesis on 01/03 with removal of 9.5L (negative for SBP) -LVP PRN-no diuretics recommended at this time given hypotension (now off levophed) -continue lactulose and empiric antibiotics -continue to trend labs and supportive care -electrolyte management per primary team 3.UGI bleed/anemia -s/p EGD yesterday that revealed a distal esophageal ulcer at the GE junction at 34cm and 2-3 columns of large esophageal varices with red vishal sign (bands x 2 placed) -H/H 10.9/31.9-continue to monitor and transfuse as needed -no active signs of bleeding overnight or this am per nursing -continue octreotide drip today (for total of 72 hrs) -continue PPI BID -okay for full liquids -continue supportive care -will follow 4.metabolic encephalopathy 5.sepsis Subjective Date of service: 01/05/19 Principal diagnosis: cirrhosis Interval history: Patient remains in ICU, now off pressor support. No active signs of bleeding overnight or this am per nursing. Objective - Constitutional Vitals: Temp Pulse Resp BP Pulse Ox 98.6 F 91 H 14 95/69 100 01/05/19 08:00 01/05/19 11:00 01/05/19 11:00 01/05/19 11:00 01/05/19 11:00 General appearance: no acute distress, other (alert, confused) - Respiratory Respiratory: bilateral: CTA (anterior) - Cardiovascular Rhythm: regular Heart Sounds: Present: S1 & S2 - Gastrointestinal General gastrointestinal: Present: non-tender, distended (ascites), normal bowel sounds - Labs CBC & Chem 7: 01/05/19 04:43 01/05/19 04:43 Labs: Laboratory Results - last 24 hr 01/03/19 01/04/19 01/04/19 Unknown 14:18 22:46 WBC RBC Hgb 11.2 L 11.0 L Hct 33.0 L 32.0 L MCV MCH MCHC RDW Plt Count Sodium Potassium Chloride Carbon Dioxide Anion Gap BUN Creatinine Estimated GFR BUN/Creatinine Ratio Glucose Calcium Total Bilirubin AST ALT Alkaline Phosphatase Total Protein Albumin Albumin/Globulin Ratio Fluid Reactive Lymphs 0 Fluid Eosinophils 0 Fluid Basophils 0 01/05/19 01/05/19 04:43 04:43 WBC 6.4 RBC 3.49 L Hgb 10.9 L Hct 31.9 L MCV 91 MCH 31 MCHC 34 RDW 16.5 H Plt Count 69 L Sodium 133 L Potassium 3.7 Chloride 99.1 Carbon Dioxide 25 Anion Gap 13 BUN 31 H Creatinine 1.3 Estimated GFR > 60 BUN/Creatinine Ratio 24 Glucose 140 H Calcium 7.3 L Total Bilirubin 1.90 H AST 45 H ALT 22 Alkaline Phosphatase 28 L Total Protein 4.1 L Albumin 2.0 L Albumin/Globulin Ratio 1.0 Fluid Reactive Lymphs Fluid Eosinophils Fluid Basophils
--- NOTE | 2019-01-05 18:00 | Progress Note ---
Assessment and Plan Assessment and plan: Patient is 68 year old male admitted with sepsis, AMS, chronic hep C, decompensated cirrhosis and ascites and presumed SBP and concern for GI bleed. The patient proceeded to have Paracentesis with full fluid analysis pending. He also underwent EGD with notation of Distal Esophgeal ulcer at the GE Junction and also 2-3 large Esophageal varies with banding performed. SIRS No sespsis Lactic acidosis GI bleed- Upper GI-gastric ulcers Esophageal Varices X2 with bleed Acute Metabolic Encephalopathy ROBERTO secondary to vasomotor Nephropathy now resolved Ascites Decompensated Cirrhosis Thrombocytopenia Hypokalemia- Replace Plan Continue supportive care Wean Pressors as tolerated BB precluded due to hypotension Follow cultures and ascitic fluid analysis Replace and manage electrolytes Continue PPI/Octreotide per GI recommendation Critical care input noted, and will follow there management Renal input appreciated Imaging studies reviewed and no other acute pathology in the brain ID consult. DVT/GI prophy Plan discussed with Nursings staff. History Interval history: Patient seen and examined, remains with confusion. no shortness of breath noted Hospitalist Physical - Physical exam Narrative exam: VITAL SIGNS: Reviewed. GENERAL: The patient appeared well nourished and normally developed. Vital signs as documented. HEAD: No signs of head trauma. EYES: Pupils are equal. Extraocular motions intact. EARS: Hearing grossly intact. MOUTH: Oropharynx is normal. NECK: No adenopathy, no JVD. CHEST: Chest with clear breath sounds bilaterally. No wheezes, rales, or rhonchi. CARDIAC: Regular rate and rhythm. S1 and S2, without murmurs, gallops, or rubs. VASCULAR: No Edema. Peripheral pulses normal and equal in all extremities. ABDOMEN: Soft, without detectable tenderness. distended with positive fluid shift. No rebound or guarding, and no masses palpated. Bowel Sounds normal. MUSCULOSKELETAL: Good range of motion of all major joints. Extremities without clubbing, cyanosis or edema. NEUROLOGIC EXAM: confused. No focal sensory or strength deficits. Speech normal. Follows commands. PSYCHIATRIC: Mood normal. SKIN: No rash or lesions. - Constitutional Vitals: Temp Pulse Resp BP Pulse Ox 98.0 F 94 H 18 95/61 96 01/05/19 13:45 01/05/19 13:45 01/05/19 13:45 01/05/19 13:45 01/05/19 13:45 Results - Labs CBC & Chem 7: 01/06/19 05:28 01/06/19 05:28 Labs: Laboratory Last Values WBC 6.4 K/mm3 (4.5-11.0) 01/05/19 04:43 RBC 3.49 M/mm3 (3.65-5.03) L 01/05/19 04:43 Hgb 10.9 gm/dl (11.8-15.2) L 01/05/19 04:43 Hct 31.9 % (35.5-45.6) L 01/05/19 04:43 MCV 91 fl (84-94) 01/05/19 04:43 MCH 31 pg (28-32) 01/05/19 04:43 MCHC 34 % (32-34) 01/05/19 04:43 RDW 16.5 % (13.2-15.2) H 01/05/19 04:43 Plt Count 69 K/mm3 (140-440) L 01/05/19 04:43 Lymph % (Auto) 10.6 % (13.4-35.0) L 01/03/19 05:05 [place] % (Auto) 11.3 % (0.0-7.3) H 01/03/19 05:05 Eos % (Auto) 0.0 % (0.0-4.3) 01/03/19 05:05 Baso % (Auto) 0.1 % (0.0-1.8) 01/03/19 05:05 Lymph # 0.8 K/mm3 (1.2-5.4) L 01/03/19 05:05 [place] # 0.8 K/mm3 (0.0-0.8) 01/03/19 05:05 Eos # 0.0 K/mm3 (0.0-0.4) 01/03/19 05:05 Baso # 0.0 K/mm3 (0.0-0.1) 01/03/19 05:05 Add Manual Diff Complete 01/01/19 21:25 Total Counted 100 01/01/19 21:25 Seg Neutrophils % 78.0 % (40.0-70.0) H 01/03/19 05:05 Seg Neuts % (Manual) 68.0 % (40.0-70.0) 01/01/19 21:25 Band Neutrophils % 28.0 % 01/01/19 21:25 Lymphocytes % (Manual) 2.0 % (13.4-35.0) L 01/01/19 21:25 Reactive Lymphs % (Man) 0 % 01/01/19 21:25 Monocytes % (Manual) 2.0 % (0.0-7.3) 01/01/19 21:25 Eosinophils % (Manual) 0 % (0.0-4.3) 01/01/19 21:25 Basophils % (Manual) 0 % (0.0-1.8) 01/01/19 21:25 Metamyelocytes % 0 % 01/01/19 21:25 Myelocytes % 0 % 01/01/19 21: Promyelocytes % 0 % 01/01/19: Blast Cells % 0 % 01/01/19 21: Nucleated RBC % Not Reportable 01/01/19 21:25 Seg Neutrophils # 5.6 K/mm3 (1.8-7.7) 01/03/19 05:05 Seg Neutrophils # Man 10.1 K/mm3 (1.8-7.7) H 01/01/19 21:25 Band Neutrophils # 4.2 K/mm3 01/01/19 21:25 Lymphocytes # (Manual) 0.3 K/mm3 (1.2-5.4) L 01/01/19 21:25 Abs React Lymphs (Man) 0.0 K/mm3 01/01/19 21:25 Monocytes # (Manual) 0.3 K/mm3 (0.0-0.8) 01/01/19 21:25 Eosinophils # (Manual) 0.0 K/mm3 (0.0-0.4) 01/01/19 21:25 Basophils # (Manual) 0.0 K/mm3 (0.0-0.1) 01/01/19:25 Metamyelocytes # 0.0 K/mm3 01/01/19 21: Myelocytes # 0.0 K/mm3 01/01/19 21:25 Promyelocytes # 0.0 K/mm3 01/01/19 21:25 Blast Cells # 0.0 K/mm3 01/01/19 21:25 WBC Morphology Not Reportable 01/01/19 21: Hypersegmented Neuts Not Reportable 01/01/19 21:25 Hyposegmented Neuts Not Reportable 01/01/19 21:25 Hypogranular Neuts Not Reportable 01/01/19 21:25 Smudge Cells Not Reportable 01/01/19 21:25 Toxic Granulation Not Reportable 01/01/19 21:25 Toxic Vacuolation Not Reportable 01/01/19 21:25 Dohle Bodies Not Reportable 01/01/19 21:25 Pelger-Huet Anomaly Not Reportable 01/01/19 21:25 Korin Rods Not Reportable 01/01/19 21:25 Platelet Estimate Consistent w auto 01/01/19 21:25 Clumped Platelets Not Reportable 01/01/19 21:25 Plt Clumps, EDTA Not Reportable 01/01/19 21:25 Large Platelets Not Reportable 01/01/19 21:25 Giant Platelets Not Reportable 01/01/19 21:25 Platelet Satelliting Not Reportable 01/01/19 21:25 Plt Morphology Comment Not Reportable 01/01/19 21:25 RBC Morphology Not Reportable 01/01/19 21:25 Dimorphic RBCs Not Reportable 01/01/19 21:25 Polychromasia Not Reportable 01/01/19 21:25 Hypochromasia Not Reportable 01/01/19 21:25 Poikilocytosis Not Reportable 01/01/19 21:25 Anisocytosis Not Reportable 01/01/19 21:25 Microcytosis Not Reportable 01/01/19 21:25 Macrocytosis 1+ 01/01/19 21:25 Spherocytes Not Reportable 01/01/19 21:25 Pappenheimer Bodies Not Reportable 01/01/19 21:25 Sickle Cells Not Reportable 01/01/19 21:25 Target Cells Few 01/01/19 21:25 Tear Drop Cells Not Reportable 01/01/19 21:25 Ovalocytes Not Reportable 01/01/19 21:25 Helmet Cells Not Reportable 01/01/19 21:25 [place]rest[place] Bodies Not Reportable 01/01/19 21:25 [place]al Rings Not Reportable 01/01/19 21:25 [place] Cells Not Reportable 01/01/19 21:25 Bite Cells Not Reportable 01/01/19 21:25 Crenated Cell Not Reportable 01/01/19 21:25 Elliptocytes Not Reportable 01/01/19 21:25 Acanthocytes (Spur) Not Reportable 01/01/19 21:25 Rouleaux Not Reportable 01/01/19 21:25 Hemoglobin C Crystals Not Reportable 01/01/19 21:25 Schistocytes Not Reportable 01/01/19 21:25 Malaria parasites Not Reportable 01/01/19 21:25 [place] Bodies Not Reportable 01/01/19 21:25 Hem Pathologist Commnt No 01/01/19 21:25 PT 18.4 Sec. (12.2-14.9) H 01/03/19 08:02 INR 1.43 (0.87-1.13) H 01/03/19 08:02 APTT 31.1 Sec. (24.2-36.6) 01/01/19 21:25 Sodium 133 mmol/L (137-145) L 01/05/19 04:43 Potassium 3.7 mmol/L (3.6-5.0) 01/05/19 04:43 Chloride 99.1 mmol/L (98-107) 01/05/19 04:43 Carbon Dioxide 25 mmol/L (22-30) 01/05/19 04:43 Anion Gap 13 mmol/L 01/05/19 04:43 BUN 31 mg/dL (9-20) H 01/05/19 04:43 Creatinine 1.3 mg/dL (0.8-1.5) 01/05/19 04:43 Estimated GFR > 60 ml/min 01/05/19 04:43 BUN/Creatinine Ratio 24 % 01/05/19 04:43 Glucose 140 mg/dL (75-100) H 01/05/19 04:43 POC Glucose 109 (70-105) H 01/02/19 08:07 Lactic Acid 1.80 mmol/L (0.7-2.0) 01/02/19 08:19 Calcium 7.3 mg/dL (8.4-10.2) L 01/05/19 04:43 Iron 77 ug/dL (49-181) 01/02/19 14:20 TIBC 160 mcg/dL (250-450) L 01/02/19 14:20 Ferritin 1071.0 ng/mL (13.0-400.0) H 01/02/19 14:20 Total Bilirubin 1.90 mg/dL (0.1-1.2) H 01/05/19 04:43 Direct Bilirubin 1.0 mg/dL (0-0.2) H 01/02/19 14:20 Indirect Bilirubin 0.7 mg/dL 01/02/19 14:20 AST 45 units/L (5-40) H 01/05/19 04:43 ALT 22 units/L (7-56) 01/05/19 04:43 Alkaline Phosphatase 28 units/L (35-129) L 01/05/19 04:43 Ammonia 49.0 umol/L (25-60) 01/01/19 23:23 Total Protein 4.1 g/dL (6.3-8.2) L 01/05/19 04:43 Albumin 2.0 g/dL (3.9-5) L 01/05/19 04:43 Albumin/Globulin Ratio 1.0 % 01/05/19 04:43 Urine Color [place] (Yellow) 01/01/19 02:22 Urine Turbidity Slightly-cloudy (Clear) 01/01/19 02:22 Urine pH 5.0 (5.0-7.0) 01/01/19 02:22 Ur Specific [place] 1.015 (1.003-1.030) 01/01/19 02:22 Urine Protein 100 mg/dl mg/dL (Negative) 01/01/19 02:22 Urine Glucose (UA) Neg mg/dL (Negative) 01/01/19 02:22 Urine Ketones Tr mg/dL (Negative) 01/01/19 02:22 Urine Blood Mod (Negative) 01/01/19 02:22 Urine Nitrite Neg (Negative) 01/01/19 02:22 Urine Bilirubin Neg (Negative) 01/01/19 02:22 Urine Urobilinogen 4.0 mg/dL (<2.0) 01/01/19 02:22 Ur Leukocyte Esterase Tr (Negative) 01/01/19 02:22 Urine WBC (Auto) 27.0 /HPF (0.0-6.0) H 01/01/19 02:22 Urine RBC (Auto) 3.0 /HPF (0.0-6.0) 01/01/19 02:22 U Epithel Cells (Auto) < 1.0 /HPF (0-13.0) 01/01/19 02:22 Urine Bacteria (Auto) 1+ /HPF (Negative) 01/01/19 02:22 Hyaline Casts 41 /LPF 01/01/19 02:22 Granular Casts 4 /LPF 01/01/19 02:22 Urine Mucus 1+ /HPF 01/01/19 02:22 Fluid Type Ascitic 01/03/19 Unknown Fluid Color Yellow 01/03/19 Unknown Fluid Appearance Cloudy 01/03/19 Unknown Fluid WBC 21 /mm3 01/03/19 Unknown Fluid RBC 3150 /mm3 01/03/19 Unknown Fluid Seg Neutrophils 15.0 % 01/03/19 Unknown Fluid Lymphocytes 81.0 % 01/03/19 Unknown Fluid Reactive Lymphs 0 % 01/03/19 Unknown Fluid Monocytes 4.0 % 01/03/19 Unknown Fluid Eosinophils 0 % 01/03/19 Unknown Fluid Basophils 0 % 01/03/19 Unknown Random Vancomycin 14.1 ug/mL (0-40.0) 01/03/19 13:14 Hepatitis A IgM Ab Non-reactive (NonReactive) 01/02/19 14:20 Hep Bs Antigen Non-reactive (Negative) 01/02/19 14:20 Hep B Core IgM Ab Non-reactive (NonReactive) 01/02/19 14:20 Hepatitis C Antibody Reactive (NonReactive) A 01/02/19 14:20 Blood Type B POSITIVE 01/02/19 08:19 Antibody Screen Negative 01/02/19 08:19 Crossmatch See Detail 01/02/19 08:19 Nutrition/Malnutrition Assess - Dietary Evaluation Nutrition/Malnutrition Findings: Nutrition Notes Start: 01/02/19 13:43 Freq: Status: Active Protocol: Document 01/04/19 10:08 CT (Rec: 01/04/19 12:34 CT [id number]) Co-Sign 01/04/19 10:08 OL Nutrition Notes Initial or Follow up Assessment Current Diagnosis Sepsis Other Pertinent Diagnosis AMS, cirrhosis, ascites, UTI, esophageal ulcer Current Diet Clear Liquid Labs/Tests Na 135 K 3.2 BUN 32 Pertinent Medications Reviewed. Height 5 ft 11 in Weight 106.5 kg [place] Body Weight (kg) 78.18 BMI 32.7 Weight Status Obese Subjective/Other Information No visible signs of malnutrition present. Pt underwent paracentesis yesterday to remove 9L of fluid. No known weight hx. Pt starting clear liquid diet at lunch today. Burn Absent Trauma Absent #1 Nutrition Diagnosis Inadequate oral intake Etiology esopageal ulcer As Evidenced by Signs and Symptoms clear liquid diet. Is patient on ventilator? No Is Patient Ambulatory and/or Out of Bed No REE-([facility]-confined to bed) 2245.608 Kcal/Kg value to use for calculation 14 Approximate Energy Requirements Using 1491 kcal/Kg Calculation Used for Recommendations Kcal/kg Additional Notes PRO: 156g PRO (2g/kg IBW) fluid: 1 ml/kcal Nutrition Intervention Change Diet Order: Advance from clear liquid when medically feasible. Add Supplement/Snack (indicate name/kcal Ensure Clear daily /protein ) Provides kCal: 240 Provides Protein (gm) 8 Goal #1 PO tolerance. Goal #2 Diet advancement. Follow-Up By: 01/06/19 Additional Comments F/U: PO tolerance and diet advancement
[2019-01-05] MEDS: CEPHULAC PO SCH (18:57)
[2019-01-05] MEDS: PROTONIX PO SCH (22:43)
[2019-01-06] MEDS: D5NS 1,000 ML IV SCH (05:49)
[2019-01-06 06:15] LABS: Mean Corpuscular HGB Conc 34 % (32-34); Mean Corpuscular Volume 91 fl (84-94); Red Blood Count 3.17 M/mm3 (3.65-5.03); Red Cell Distribution Width 16.9 % (13.2-15.2)
[2019-01-06 06:30] LABS: Calcium 7.4 mg/dL (8.4-10.2)
[2019-01-06 06:32] LABS: Platelet Count 59 K/mm3 (140-440)
--- NOTE | 2019-01-06 09:00 | Progress Note ---
Assessment and Plan Cultures: 01/01/2019 blood culture: No growth 01/01/2019 urine culture: No growth 01/03/2019 ascitic fluid cultures: no growth at 24 hours A/P: 68-year-old male with chronic hepatitis C and associated liver cirrhosis with ascites admitted with: #1 Hypotension and shock: Ascitic fluid analysis not consistent with SBP. Hypotension following large volume paracentesis. Also with GI bleed. No evidence of pneumonia or urinary tract infection. Bacteremia also ruled out. Ascitic fluid cultures with no growth. Off pressors now. Low suspicion for an infectious process. Off vancomycin and cefepime, on ceftriaxone for now, continue x 3 more days, there is data regarding benefit with Ceftriaxone in the setting of v ariceal bleed. #2 Acute anemia with GI bleed: Patient with esophageal ulcer and varices. Status post EGD and variceal banding. #3 Acute kidney injury: Improving. Nephrology following. 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 Overall prognosis is guarded. #5 Acute encephalopathy: likely multifactorial. improving. Recs: continue IV ceftriaxone 2 gm q24 hrs x 3 more days ending 01-08-19 (data showing benefit in the setting of variceal bleed) Roxi Rider NP [facility] M: [phone] O:[phone] Subjective Date of service: 01/06/19 Principal diagnosis: cirrhosis Interval history: Patient seen and examined. Awake but combative and hitting staff per bedside nurse. Remains afebrile. No famiily at bedside. Objective - Exam Narrative Exam: Constitutional: Awake. Combative per bedside nurse. No acute distress observed Head, Ears, Nose: Normocephalic, atraumatic. External ears, nose normal Eyes: Conjunctivae/corneas clear. No icterus. No ptosis. Neck: Supple, no meningeal signs Oral: unable to examine Cardiovascular: S1, S2 normal, Respiratory: exam limited GI: Distended, exam limited NGT+ Musculoskeletal: 1+ b/l pedal edema Skin: No rash or abscess Hem/Lymphatic: No palpable cervical or supraclavicular nodes. No lymphangitis Psych: flat affect Neurological: Awake, non focal - Constitutional Vitals: Vital Signs Temp Pulse Resp BP Pulse Ox 98.5 F 96 H 22 84/53 98 01/06/19 08:30 01/06/19 08:30 01/06/19 08:30 01/06/19 08:30 01/06/19 08:30 Temperature -Last 24 Hours Temperature 98.5 F Temperature 97.7 F Temperature 97.7 F Temperature 97.7 F Temperature 98.0 F - Labs CBC & Chem 7: 01/06/19 05:28 01/06/19 05:28 Labs: Abnormal lab results 01/06/19 01/06/19 Range/Units 05:28 05:28 RBC 3.17 L (3.65-5.03) M/mm3 Hgb 10.0 L (11.8-15.2) gm/dl Hct 29.0 L (35.5-45.6) % RDW 16.9 H (13.2-15.2) % Plt Count 59 L (140-440) K/mm3 Sodium 135 L (137-145) mmol/L BUN 33 H (9-20) mg/dL Glucose 132 H (75-100) mg/dL Calcium 7.4 L (8.4-10.2) mg/dL
[2019-01-06 09:18] LABS: Basophils % (Manual) 0 % (0.0-1.8); Total Cells Counted 100
[2019-01-06 09:19] LABS: Anisocytosis 1+; Macrocytosis Few; Platelet Estimate Consistent w Auto; Poikilocytosis 1+; Target Cells 1+
--- NOTE | 2019-01-06 10:42 | Gastroenterology Progress Note ---
Addendum entered and electronically signed by NOLAN BARRETO MD 01/06/19 16:12: Patient seen and examined on 01/06/2019. Esophageal variceal bleeding s/p banding ligation No additional bleeding. H/H stable. Continue with PPI bid. Empiric abx for a total of 7 days. lactulose. Follow up in clinic post discharge. will sign off. Original Note: Assessment and Plan 1.cirrhosis 2.ascites -CT abdomen with small liver c/w cirrhosis -etiology-decompensated cirrhosis 2/2 likely HCV (HCV antibody positive) with ascites -s/p paracentesis on 01/03 with removal of 9.5L (negative for SBP) -LVP PRN-no diuretics recommended at this time given hypotension -repeat paracentesis pending for today -continue daily lactulose and empiric antibiotics for total of 7 days -continue to trend labs and supportive care -electrolyte management per primary team 3.UGI bleed/anemia -s/p EGD yesterday that revealed a distal esophageal ulcer at the GE junction at 34cm and 2-3 columns of large esophageal varices with red vishal sign (bands x 2 placed) -H/H 10.0/29.0-continue to monitor and transfuse as needed -no active signs of bleeding overnight or this am per nursing -okay to d/c octreotide drip- no recommendations for BB at this time due to hypotension (consider in the future if tolerated) -continue PPI BID -advance diet as tolerated -continue supportive care -further management/Hep C tx as outpatient -no further recommendations at this time per GI standpoint -will sign off, please call if needed 4.metabolic encephalopathy 5.sepsis Subjective Date of service: 01/06/19 Principal diagnosis: cirrhosis Interval history: No acute distress or active signs of bleeding overnight or this am per nursing. Objective - Constitutional Vitals: Temp Pulse Resp BP Pulse Ox 98.5 F 96 H 22 84/53 98 01/06/19 08:30 01/06/19 08:30 01/06/19 08:30 01/06/19 08:30 01/06/19 08:30 General appearance: no acute distress - Respiratory Respiratory: bilateral: CTA (anterior) - Cardiovascular Rhythm: regular Heart Sounds: Present: S1 & S2 - Gastrointestinal General gastrointestinal: Present: soft, non-tender, distended (ascites), normal bowel sounds - Labs CBC & Chem 7: 01/06/19 05:28 01/06/19 05:28 Labs: Laboratory Results - last 24 hr 01/06/19 01/06/19 05:28 05:28 WBC 6.5 RBC 3.17 L Hgb 10.0 L Hct 29.0 L MCV 91 MCH 31 MCHC 34 RDW 16.9 H Plt Count 59 L [place] % (Auto) Personalization Specialist Add Manual Diff Complete Total Counted 100 Seg Neuts % (Manual) 74.0 H Band Neutrophils % 0 Lymphocytes % (Manual) 13.0 L Reactive Lymphs % (Man) 0 Monocytes % (Manual) 10.0 H Eosinophils % (Manual) 3.0 Basophils % (Manual) 0 Metamyelocytes % 0 Myelocytes % 0 Promyelocytes % 0 Blast Cells % 0 Nucleated RBC % Not Reportable Seg Neutrophils # Man 4.8 Band Neutrophils # 0.0 Lymphocytes # (Manual) 0.8 L Abs React Lymphs (Man) 0.0 Monocytes # (Manual) 0.7 Eosinophils # (Manual) 0.2 Basophils # (Manual) 0.0 Metamyelocytes # 0.0 Myelocytes # 0.0 Promyelocytes # 0.0 Blast Cells # 0.0 WBC Morphology Not Reportable Hypersegmented Neuts Not Reportable Hyposegmented Neuts Not Reportable Hypogranular Neuts Not Reportable Smudge Cells Not Reportable Toxic Granulation Not Reportable Toxic Vacuolation Not Reportable Dohle Bodies Not Reportable Pelger-Huet Anomaly Not Reportable Korin Rods Not Reportable Platelet Estimate Consistent w auto Clumped Platelets Not Reportable Plt Clumps, EDTA Not Reportable Large Platelets Not Reportable Giant Platelets Not Reportable Platelet Satelliting Not Reportable Plt Morphology Comment Not Reportable RBC Morphology Not Reportable Dimorphic RBCs Not Reportable Polychromasia Not Reportable Hypochromasia Not Reportable Poikilocytosis 1+ Anisocytosis 1+ Microcytosis Not Reportable Macrocytosis Few Spherocytes Not Reportable Pappenheimer Bodies Not Reportable Sickle Cells Not Reportable Target Cells 1+ Tear Drop Cells Not Reportable Ovalocytes Not Reportable Helmet Cells Not Reportable Shrest[place] Bodies Not Reportable [place] Rings Not Reportable [place] Cells Not Reportable Bite Cells Not Reportable Crenated Cell Not Reportable Elliptocytes Not Reportable Acanthocytes (Spur) Not Reportable Rouleaux Not Reportable Hemoglobin C Crystals Not Reportable Schistocytes Not Reportable Malaria parasites Not Reportable [place] Bodies Not Reportable Hem Pathologist Commnt No Sodium 135 L Potassium 3.9 Chloride 101.3 Carbon Dioxide 25 Anion Gap 13 BUN 33 H Creatinine 1.5 Estimated GFR 57 BUN/Creatinine Ratio 22 Glucose 132 H Calcium 7.4 L
--- NOTE | 2019-01-06 10:42 | Progress Note ---
Assessment and Plan Will sign off. Call if questions. Pulm status is stable. Continue to wean FiO2 as tolerated for sats >88% Subjective Date of service: 01/06/19 Principal diagnosis: cirrhosis Interval history: Successful transition out of ICU. Stable. No acute events overnight. Pulm status is stable. Objective Vital Signs - 12hr 01/05/19 01/06/19 01/06/19 23:00 00:48 01:27 Temperature Pulse Rate 94 H 60 Respiratory 20 Rate Respiratory 20 Rate [Throat] Blood Pressure Blood Pressure [Right] O2 Sat by Pulse 97 91 Oximetry 01/06/19 01/06/19 01/06/19 01:51 05:55 08:22 Temperature 97.7 F Pulse Rate 99 H Respiratory 18 18 Rate Respiratory Rate [Throat] Blood Pressure 89/66 95/64 Blood Pressure [Right] O2 Sat by Pulse 95 96 Oximetry 01/06/19 08:30 Temperature 98.5 F Pulse Rate 96 H Respiratory 22 Rate Respiratory Rate [Throat] Blood Pressure Blood Pressure 84/53 [Right] O2 Sat by Pulse 98 Oximetry Constitutional: no acute distress, alert Eyes: icteric ENT: oropharynx moist Neck: supple Effort: normal Ascultation: Bilateral: clear, diminished breath sounds (Limited excursions with associated ascites) Cardiovascular: regular rate and rhythm (no mrg) Gastrointestinal: normoactive bowel sounds, other (ascites, prominent -> worse compared to 01/03/19) Integumentary: normal Extremities: no cyanosis, pink and warm, edema (2+ bilateral LE edema) Neurologic: normal mental status, non-focal exam, pupils equal and round Psychiatric: mood appropriate, affect normal CBC and BMP: 01/06/19 05:28 01/06/19 05:28 ABG, PT/INR, D-dimer: PT/INR, D-dimer PT 18.4 Sec. (12.2-14.9) H 01/03/19 08:02 INR 1.43 (0.87-1.13) H 01/03/19 08:02 Abnormal lab findings: Abnormal Labs 01/01/19 01/01/19 01/01/19 02:22 21:16 21:25 WBC 14.9 H RBC Hgb Hct MCHC 35 H RDW 16.1 H Plt Count Lymph % (Auto) [place] % (Auto) Lymph # Seg Neutrophils % Seg Neuts % (Manual) Lymphocytes % (Manual) 2.0 L Monocytes % (Manual) Seg Neutrophils # Man 10.1 H Lymphocytes # (Manual) 0.3 L PT INR Sodium Potassium Chloride Carbon Dioxide BUN Creatinine Glucose POC Glucose 106 H Lactic Acid Calcium TIBC Ferritin Total Bilirubin Direct Bilirubin AST Alkaline Phosphatase Total Protein Albumin Urine WBC (Auto) 27.0 H Hepatitis C Antibody Crossmatch 01/01/19 01/01/19 01/01/19 21:25 21:25 21:25 WBC RBC Hgb Hct MCHC RDW Plt Count Lymph % (Auto) [place] % (Auto) Lymph # Seg Neutrophils % Seg Neuts % (Manual) Lymphocytes % (Manual) Monocytes % (Manual) Seg Neutrophils # Man Lymphocytes # (Manual) PT 16.7 H INR 1.27 H Sodium 124 L Potassium Chloride 80.3 L Carbon Dioxide 21 L BUN 25 H Creatinine 1.7 H Glucose 117 H POC Glucose Lactic Acid 3.50 H* Calcium TIBC Ferritin Total Bilirubin 2.40 H Direct Bilirubin AST 200 H Alkaline Phosphatase Total Protein Albumin 2.6 L Urine WBC (Auto) Hepatitis C Antibody Crossmatch 01/01/19 01/01/19 01/02/19 22:26 23:23 04:29 WBC RBC Hgb Hct MCHC RDW Plt Count Lymph % (Auto) [place] % (Auto) Lymph # Seg Neutrophils % Seg Neuts % (Manual) Lymphocytes % (Manual) Monocytes % (Manual) Seg Neutrophils # Man Lymphocytes # (Manual) PT INR Sodium Potassium Chloride Carbon Dioxide BUN Creatinine Glucose POC Glucose Lactic Acid 2.80 H* 2.10 H* 2.30 H* Calcium TIBC Ferritin Total Bilirubin Direct Bilirubin AST Alkaline Phosphatase Total Protein Albumin Urine WBC (Auto) Hepatitis C Antibody Crossmatch 01/02/19 01/02/19 01/02/19 04:29 08:07 08:19 WBC RBC Hgb 11.3 L Hct 32.4 L MCHC RDW Plt Count Lymph % (Auto) [place] % (Auto) Lymph # Seg Neutrophils % Seg Neuts % (Manual) Lymphocytes % (Manual) Monocytes % (Manual) Seg Neutrophils # Man Lymphocytes # (Manual) PT INR Sodium 124 L Potassium Chloride 86.0 L Carbon Dioxide 17 L BUN 26 H Creatinine Glucose 104 H POC Glucose 109 H Lactic Acid Calcium 7.8 L TIBC Ferritin Total Bilirubin Direct Bilirubin AST Alkaline Phosphatase Total Protein Albumin Urine WBC (Auto) Hepatitis C Antibody Crossmatch 01/02/19 01/02/19 01/02/19 08:19 11:46 14:20 WBC RBC Hgb 10.6 L Hct 30.8 L MCHC RDW Plt Count Lymph % (Auto) [place] % (Auto) Lymph # Seg Neutrophils % Seg Neuts % (Manual) Lymphocytes % (Manual) Monocytes % (Manual) Seg Neutrophils # Man Lymphocytes # (Manual) PT INR Sodium Potassium Chloride Carbon Dioxide BUN Creatinine Glucose POC Glucose Lactic Acid Calcium TIBC 160 L Ferritin Total Bilirubin 1.70 H Direct Bilirubin 1.0 H AST 132 H Alkaline Phosphatase Total Protein 5.6 L Albumin 2.6 L Urine WBC (Auto) Hepatitis C Antibody Crossmatch See Detail 01/02/19 01/02/19 01/02/19 14:20 14:20 18:08 WBC RBC Hgb 9.1 L Hct 26.2 L MCHC RDW Plt Count Lymph % (Auto) [place] % (Auto) Lymph # Seg Neutrophils % Seg Neuts % (Manual) Lymphocytes % (Manual) Monocytes % (Manual) Seg Neutrophils # Man Lymphocytes # (Manual) PT INR Sodium Potassium Chloride Carbon Dioxide BUN Creatinine Glucose POC Glucose Lactic Acid Calcium TIBC Ferritin 1071.0 H Total Bilirubin Direct Bilirubin AST Alkaline Phosphatase Total Protein Albumin Urine WBC (Auto) Hepatitis C Antibody Reactive A Crossmatch 01/03/19 01/03/19 01/03/19 00:45 05:05 05:05 WBC RBC 2.66 L Hgb 9.1 L 8.4 L Hct 26.1 L 24.1 L MCHC 35 H RDW 16.3 H Plt Count 101 L Lymph % (Auto) 10.6 L [place] % (Auto) 11.3 H Lymph # 0.8 L Seg Neutrophils % 78.0 H Seg Neuts % (Manual) Lymphocytes % (Manual) Monocytes % (Manual) Seg Neutrophils # Man Lymphocytes # (Manual) PT INR Sodium 132 L D Potassium 3.2 L D Chloride 92.1 L Carbon Dioxide BUN 34 H Creatinine 1.8 H Glucose 163 H POC Glucose Lactic Acid Calcium 7.7 L TIBC Ferritin Total Bilirubin 1.70 H Direct Bilirubin AST 93 H Alkaline Phosphatase Total Protein 5.1 L Albumin 2.5 L Urine WBC (Auto) Hepatitis C Antibody Crossmatch 01/03/19 01/03/19 01/04/19 08:02 17:06 04:21 WBC RBC 3.01 L 3.30 L Hgb 9.5 L 10.4 L Hct 27.0 L 29.9 L MCHC 35 H 35 H RDW 16.2 H 16.5 H Plt Count 81 L 76 L Lymph % (Auto) [place] % (Auto) Lymph # Seg Neutrophils % Seg Neuts % (Manual) Lymphocytes % (Manual) Monocytes % (Manual) Seg Neutrophils # Man Lymphocytes # (Manual) PT 18.4 H INR 1.43 H Sodium Potassium Chloride Carbon Dioxide BUN Creatinine Glucose POC Glucose Lactic Acid Calcium TIBC Ferritin Total Bilirubin Direct Bilirubin AST Alkaline Phosphatase Total Protein Albumin Urine WBC (Auto) Hepatitis C Antibody Crossmatch 01/04/19 01/04/19 01/04/19 04:21 14:18 22:46 WBC RBC Hgb 11.2 L 11.0 L Hct 33.0 L 32.0 L MCHC RDW Plt Count Lymph % (Auto) [place] % (Auto) Lymph # Seg Neutrophils % Seg Neuts % (Manual) Lymphocytes % (Manual) Monocytes % (Manual) Seg Neutrophils # Man Lymphocytes # (Manual) PT INR Sodium 135 L Potassium 3.2 L Chloride Carbon Dioxide BUN 32 H Creatinine Glucose 114 H POC Glucose Lactic Acid Calcium 7.5 L TIBC Ferritin Total Bilirubin Direct Bilirubin AST Alkaline Phosphatase Total Protein Albumin Urine WBC (Auto) Hepatitis C Antibody Crossmatch 01/05/19 01/05/19 01/06/19 04:43 04:43 05:28 WBC RBC 3.49 L 3.17 L Hgb 10.9 L 10.0 L Hct 31.9 L 29.0 L MCHC RDW 16.5 H 16.9 H Plt Count 69 L 59 L Lymph % (Auto) [place] % (Auto) Lymph # Seg Neutrophils % Seg Neuts % (Manual) 74.0 H Lymphocytes % (Manual) 13.0 L Monocytes % (Manual) 10.0 H Seg Neutrophils # Man Lymphocytes # (Manual) 0.8 L PT INR Sodium 133 L Potassium Chloride Carbon Dioxide BUN 31 H Creatinine Glucose 140 H POC Glucose Lactic Acid Calcium 7.3 L TIBC Ferritin Total Bilirubin 1.90 H Direct Bilirubin AST 45 H Alkaline Phosphatase 28 L Total Protein 4.1 L Albumin 2.0 L Urine WBC (Auto) Hepatitis C Antibody Crossmatch 01/06/19 05:28 WBC RBC Hgb Hct MCHC RDW Plt Count Lymph % (Auto) [place] % (Auto) Lymph # Seg Neutrophils % Seg Neuts % (Manual) Lymphocytes % (Manual) Monocytes % (Manual) Seg Neutrophils # Man Lymphocytes # (Manual) PT INR Sodium 135 L Potassium Chloride Carbon Dioxide BUN 33 H Creatinine Glucose 132 H POC Glucose Lactic Acid Calcium 7.4 L TIBC Ferritin Total Bilirubin Direct Bilirubin AST Alkaline Phosphatase Total Protein Albumin Urine WBC (Auto) Hepatitis C Antibody Crossmatch
--- NOTE | 2019-01-06 10:52 | Progress Note ---
Assessment and Plan Impression: * Hyponatremia * ROBERTO with ATN vs Hepatorenal * Hepatitis C * cirrhosis * hypokalemia * hypomagnesemia * metabolic acidosis * Sepsis * Gi bleeding * uti * Hypotension PLan: * cr better today, still high risk of ATN with hypotension * co2 and NA has improved today * PRBCs prn * replete k and mag prn * iv albumin for 6 doses * continue ivf resuscitation * continue iv abx * keep MAP>65, vasopressors prn * avoid nephrotoxins, strict i/os * daily lytes * no indication for PHYSICAL SECURITY SPECIALIST Subjective Date of service: 01/06/19 Principal diagnosis: cirrhosis Interval history: resting in bed, events noted Objective - Exam Narrative Exam: - General Limitations: Altered Mental Status General appearance: alert, lethargic - Head Head exam: Present: atraumatic, normocephalic - Eye Eye exam: Present: scleral icterus - ENT ENT exam: Present: mucous membranes dry, other (dried blood in nare) - Neck Neck exam: Present: normal inspection - Respiratory Respiratory exam: Present: normal lung sounds bilaterally. Absent: respiratory distress - Cardiovascular Cardiovascular Exam: Present: regular rate, normal rhythm - GI/Abdominal GI/Abdominal exam: Present: distended. Absent: tenderness - Extremities Exam Extremities exam: Present: other (2+ pitting edema bilateral lower extremities) - Neurological Exam Neurological exam: Present: alert, altered - Psychiatric Psychiatric exam: Present: normal affect, normal mood - Skin Skin exam: Present: warm, dry, intact, normal color - Vital Signs Vital signs: Vital Signs - 12hr 01/05/19 01/06/19 01/06/19 23:00 00:48 01:27 Temperature Pulse Rate 94 H 60 Respiratory 20 Rate Respiratory 20 Rate [Throat] Blood Pressure Blood Pressure [Right] O2 Sat by Pulse 97 91 Oximetry 01/06/19 01/06/19 01/06/19 01:51 05:55 08:22 Temperature 97.7 F Pulse Rate 99 H Respiratory 18 18 Rate Respiratory Rate [Throat] Blood Pressure 89/66 95/64 Blood Pressure [Right] O2 Sat by Pulse 95 96 Oximetry 01/06/19 08:30 Temperature 98.5 F Pulse Rate 96 H Respiratory 22 Rate Respiratory Rate [Throat] Blood Pressure Blood Pressure 84/53 [Right] O2 Sat by Pulse 98 Oximetry - Lab 01/06/19 05:28 01/06/19 05:28 Most recent lab results Calcium 7.4 mg/dL (8.4-10.2) L 01/06/19 05:28 Medications & Allergies - Medications Allergies/Adverse Reactions: Allergies No Known Allergies Allergy (Verified 01/01/19 23:23) Active Medications: Generic Name Dose Route Start Last Admin Trade Name Freq PRN Reason Stop Dose Admin Ceftriaxone Sodium 2 gm in 100 mls @ 200 mls/hr 01/04/19 16:00 01/05/19 10:04 Rocephin/Ns 2 Gm/100 Ml IV 200 mls/hr Q24HR LORI Administration Protocol Dextrose/Sodium Chloride 1,000 mls @ 50 mls/hr 01/05/19 13:00 01/06/19 05:49 D5ns IV 50 mls/hr DIRECT LORI Administration Lactulose 20 gm 01/05/19 14:00 01/05/19 18:57 Cephulac PO Not Given QDAY LORI Morphine Sulfate 2 mg 01/04/19 10:02 01/04/19 16:19 Morphine IV 2 mg Q4H PRN Administration Pain, Moderate (4-6) Ondansetron HCl 4 mg 01/02/19 01:49 01/02/19 11:45 Zofran IV 4 mg Q8H PRN Administration Nausea And Vomiting Pantoprazole Sodium 40 mg 01/05/19 22:00 01/05/19 22:43 Protonix PO 40 mg BID LORI Administration
[2019-01-06] MEDS: ROCEPHIN/NS 2 GM/100 ML 2 GM/100 ML BAG IV SCH (11:39)
[2019-01-06] MEDS: PROTONIX PO SCH (13:39)
--- NOTE | 2019-01-06 14:08 | Progress Note ---
Assessment and Plan Assessment and plan: Patient is 68 year old male admitted with sepsis, AMS, chronic hep C, decompensated cirrhosis and ascites and presumed SBP and concern for GI bleed. The patient proceeded to have Paracentesis with full fluid analysis pending. He also underwent EGD with notation of Distal Esophgeal ulcer at the [place] and also 2-3 large Esophageal varies with banding performed. SIRS No sespsis Lactic acidosis GI bleed- Upper GI-gastric ulcers Esophageal Varices X2 with bleed Acute Metabolic Encephalopathy ROBERTO secondary to vasomotor Nephropathy now resolved Ascites Decompensated Cirrhosis Thrombocytopenia Hypokalemia- Replace Plan Continue supportive care Wean Pressors as tolerated BB precluded due to hypotension Continue ammonia Trial repeat Paracentesis Follow cultures and ascitic fluid analysis Replace and manage electrolytes Continue PPI/Octreotide per GI recommendation Critical care input noted, and will follow there management Renal input appreciated Imaging studies reviewed and no other acute pathology in the brain ID consult. DVT/GI prophy Plan discussed with Nursings staff. History Interval history: Patient seen and examined, remains with confusion. no shortness of breath noted. nursing staff reports Hospitalist Physical - Physical exam Narrative exam: VITAL SIGNS: Reviewed. GENERAL: The patient appeared well nourished and normally developed. Vital signs as documented. HEAD: No signs of head trauma. EYES: Pupils are equal. Extraocular motions intact. EARS: Hearing grossly intact. MOUTH: Oropharynx is normal. NECK: No adenopathy, no JVD. CHEST: Chest with clear breath sounds bilaterally. No wheezes, rales, or rhonchi. CARDIAC: Regular rate and rhythm. S1 and S2, without murmurs, gallops, or rubs. VASCULAR: No Edema. Peripheral pulses normal and equal in all extremities. ABDOMEN: Soft, without detectable tenderness. distended with positive fluid shift. No rebound or guarding, and no masses palpated. Bowel Sounds normal. MUSCULOSKELETAL: Good range of motion of all major joints. Extremities without clubbing, cyanosis or edema. NEUROLOGIC EXAM: confused. No focal sensory or strength deficits. Speech normal. Follows commands. PSYCHIATRIC: Mood normal. SKIN: No rash or lesions. - Constitutional Vitals: Temp Pulse Resp BP Pulse Ox 98.5 F 96 H 22 84/53 98 01/06/19 08:30 01/06/19 08:30 01/06/19 08:30 01/06/19 08:30 01/06/19 08:30 Results - Labs CBC & Chem 7: 01/06/19 05:28 01/06/19 05:28 Labs: Laboratory Last Values WBC 6.5 K/mm3 (4.5-11.0) 01/06/19 05:28 RBC 3.17 M/mm3 (3.65-5.03) L 01/06/19 05:28 Hgb 10.0 gm/dl (11.8-15.2) L 01/06/19 05:28 Hct 29.0 % (35.5-45.6) L 01/06/19 05:28 MCV 91 fl (84-94) 01/06/19 05:28 MCH 31 pg (28-32) 01/06/19 05:28 MCHC 34 % (32-34) 01/06/19 05:28 RDW 16.9 % (13.2-15.2) H 01/06/19 05:28 Plt Count 59 K/mm3 (140-440) L 01/06/19 05:28 Lymph % (Auto) 10.6 % (13.4-35.0) L 01/03/19 05:05 [place] % (Auto) [employer] 01/06/19 05:28 Eos % (Auto) 0.0 % (0.0-4.3) 01/03/19 05:05 Baso % (Auto) 0.1 % (0.0-1.8) 01/03/19 05:05 Lymph # 0.8 K/mm3 (1.2-5.4) L 01/03/19 05:05 [place] # 0.8 K/mm3 (0.0-0.8) 01/03/19 05:05 Eos # 0.0 K/mm3 (0.0-0.4) 01/03/19 05:05 Baso # 0.0 K/mm3 (0.0-0.1) 01/03/19 05:05 Add Manual Diff Complete 01/06/19 05:28 Total Counted 100 01/06/19 05:28 Seg Neutrophils % 78.0 % (40.0-70.0) H 01/03/19 05:05 Seg Neuts % (Manual) 74.0 % (40.0-70.0) H 01/06/19 05:28 Band Neutrophils % 0 % 02/21/19 05:28 Lymphocytes % (Manual) 13.0 % (13.4-35.0) L 01/06/19 05:28 Reactive Lymphs % (Man) 0 % 01/06/19 05:28 Monocytes % (Manual) 10.0 % (0.0-7.3) H 01/06/19 05:28 Eosinophils % (Manual) 3.0 % (0.0-4.3) 01/06/19 05:28 Basophils % (Manual) 0 % (0.0-1.8) 01/06/19 05:28 Metamyelocytes % 0 % 01/06/19 05:28 Myelocytes % 0 % 01/06/19 05:28 Promyelocytes % 0 % 01/06/19 05:28 Blast Cells % 0 % 01/06/19 05:28 Nucleated RBC % Not Reportable 01/06/19 05:28 Seg Neutrophils # 5.6 K/mm3 (1.8-7.7) 01/03/19 05:05 Seg Neutrophils # Man 4.8 K/mm3 (1.8-7.7) 01/06/19 05:28 Band Neutrophils # 0.0 K/mm3 01/06/19 05:28 Lymphocytes # (Manual) 0.8 K/mm3 (1.2-5.4) L 01/06/19 05:28 Abs React Lymphs (Man) 0.0 K/mm3 01/06/19 05:28 Monocytes # (Manual) 0.7 K/mm3 (0.0-0.8) 01/06/19 05:28 Eosinophils # (Manual) 0.2 K/mm3 (0.0-0.4) 01/06/19 05:28 Basophils # (Manual) 0.0 K/mm3 (0.0-0.1) 01/06/19 05:28 Metamyelocytes # 0.0 K/mm3 01/06/19 05:28 Myelocytes # 0.0 K/mm3 01/06/19 05:28 Promyelocytes # 0.0 K/mm3 01/06/19 05:28 Blast Cells # 0.0 K/mm3 01/06/19 05:28 WBC Morphology Not Reportable 01/06/19 05:28 Hypersegmented Neuts Not Reportable 01/06/19 05:28 Hyposegmented Neuts Not Reportable 01/06/19 05:28 Hypogranular Neuts Not Reportable 01/06/19 05:28 Smudge Cells Not Reportable 01/06/19 05:28 Toxic Granulation Not Reportable 01/06/19 05:28 Toxic Vacuolation Not Reportable 01/06/19 05:28 Dohle Bodies Not Reportable 01/06/19 05:28 Pelger-Huet Anomaly Not Reportable 01/06/19 05:28 Korin Rods Not Reportable 01/06/19 05:28 Platelet Estimate Consistent w auto 01/06/19 05:28 Clumped Platelets Not Reportable 01/06/19 05:28 Plt Clumps, EDTA Not Reportable 01/06/19 05:28 Large Platelets Not Reportable 01/06/19 05:28 Giant Platelets Not Reportable 01/06/19 05:28 Platelet Satelliting Not Reportable 01/06/19 05:28 Plt Morphology Comment Not Reportable 01/06/19 05:28 RBC Morphology Not Reportable 01/06/19 05:28 Dimorphic RBCs Not Reportable 01/06/19 05:28 Polychromasia Not Reportable 01/06/19 05:28 Hypochromasia Not Reportable 01/06/19 05:28 Poikilocytosis 1+ 01/06/19 05:28 Anisocytosis 1+ 01/06/19 05:28 Microcytosis Not Reportable 01/06/19 05:28 Macrocytosis Few 01/06/19 05:28 Spherocytes Not Reportable 01/06/19 05:28 Pappenheimer Bodies Not Reportable 01/06/19 05:28 Sickle Cells Not Reportable 01/06/19 05:28 Target Cells 1+ 01/06/19 05:28 Tear Drop Cells Not Reportable 01/06/19 05:28 Ovalocytes Not Reportable 01/06/19 05:28 Helmet Cells Not Reportable 01/06/19 05:28 [place] Bodies Not Reportable 01/06/19 05:28 [place] Rings Not Reportable 01/06/19 05:28 [place] Cells Not Reportable 01/06/19 05:28 Bite Cells Not Reportable 01/06/19 05:28 Crenated Cell Not Reportable 01/06/19 05:28 Elliptocytes Not Reportable 01/06/19 05:28 Acanthocytes (Spur) Not Reportable 01/06/19 05:28 Rouleaux Not Reportable 01/06/19 05:28 Hemoglobin C Crystals Not Reportable 01/06/19 05:28 Schistocytes Not Reportable 01/06/19 05:28 Malaria parasites Not Reportable 01/06/19 05:28 Macho Bodies Not Reportable 01/06/19 05:28 Hem Pathologist Commnt No 01/06/19 05:28 PT 18.4 Sec. (12.2-14.9) H 01/03/19 08:02 INR 1.43 (0.87-1.13) H 01/03/19 08:02 APTT 31.1 Sec. (24.2-36.6) 01/01/19 21:25 Sodium 135 mmol/L (137-145) L 01/06/19 05:28 Potassium 3.9 mmol/L (3.6-5.0) 01/06/19 05:28 Chloride 101.3 mmol/L (98-107) 01/06/19 05:28 Carbon Dioxide 25 mmol/L (22-30) 01/06/19 05:28 Anion Gap 13 mmol/L 01/06/19 05:28 BUN 33 mg/dL (9-20) H 01/06/19 05:28 Creatinine 1.5 mg/dL (0.8-1.5) 01/06/19 05:28 Estimated GFR 57 ml/min 01/06/19 05:28 BUN/Creatinine Ratio 22 % 01/06/19 05:28 Glucose 132 mg/dL (75-100) H 01/06/19 05:28 POC Glucose 109 (70-105) H 01/02/19 08:07 Lactic Acid 1.80 mmol/L (0.7-2.0) 01/02/19 08:19 Calcium 7.4 mg/dL (8.4-10.2) L 01/06/19 05:28 Iron 77 ug/dL (49-181) 01/02/19 14:20 TIBC 160 mcg/dL (250-450) L 01/02/19 14:20 Ferritin 1071.0 ng/mL (13.0-400.0) H 01/02/19 14:20 Total Bilirubin 1.90 mg/dL (0.1-1.2) H 01/05/19 04:43 Direct Bilirubin 1.0 mg/dL (0-0.2) H 01/02/19 14:20 Indirect Bilirubin 0.7 mg/dL 01/02/19 14:20 AST 45 units/L (5-40) H 01/05/19 04:43 ALT 22 units/L (7-56) 01/05/19 04:43 Alkaline Phosphatase 28 units/L (35-129) L 01/05/19 04:43 Ammonia 49.0 umol/L (25-60) 01/01/19 23:23 Total Protein 4.1 g/dL (6.3-8.2) L 01/05/19 04:43 Albumin 2.0 g/dL (3.9-5) L 01/05/19 04:43 Albumin/Globulin Ratio 1.0 % 01/05/19 04:43 Urine Color [place] (Yellow) 01/01/19 02:22 Urine Turbidity Slightly-cloudy (Clear) 01/01/19 02:22 Urine pH 5.0 (5.0-7.0) 01/01/19 02:22 Ur Specific [place] 1.015 (1.003-1.030) 01/01/19 02:22 Urine Protein 100 mg/dl mg/dL (Negative) 01/01/19 02:22 Urine Glucose (UA) Neg mg/dL (Negative) 01/01/19 02:22 Urine Ketones Tr mg/dL (Negative) 01/01/19 02:22 Urine Blood Mod (Negative) 01/01/19 02:22 Urine Nitrite Neg (Negative) 01/01/19 02:22 Urine Bilirubin Neg (Negative) 01/01/19 02:22 Urine Urobilinogen 4.0 mg/dL (<2.0) 01/01/19 02:22 Ur Leukocyte Esterase Tr (Negative) 01/01/19 02:22 Urine WBC (Auto) 27.0 /HPF (0.0-6.0) H 01/01/19 02:22 Urine RBC (Auto) 3.0 /HPF (0.0-6.0) 01/01/19 02:22 U Epithel Cells (Auto) < 1.0 /HPF (0-13.0) 01/01/19 02:22 Urine Bacteria (Auto) 1+ /HPF (Negative) 01/01/19 02:22 Hyaline Casts 41 /LPF 01/01/19 02:22 Granular Casts 4 /LPF 01/01/19 02:22 Urine Mucus 1+ /HPF 01/01/19 02:22 Fluid Type Ascitic 01/03/19 Unknown Fluid Color Yellow 01/03/19 Unknown Fluid Appearance Cloudy 01/03/19 Unknown Fluid WBC 21 /mm3 01/03/19 Unknown Fluid RBC 3150 /mm3 01/03/19 Unknown Fluid Seg Neutrophils 15.0 % 01/03/19 Unknown Fluid Lymphocytes 81.0 % 01/03/19 Unknown Fluid Reactive Lymphs 0 % 01/03/19 Unknown Fluid Monocytes 4.0 % 01/03/19 Unknown Fluid Eosinophils 0 % 01/03/19 Unknown Fluid Basophils 0 % 01/03/19 Unknown Random Vancomycin 14.1 ug/mL (0-40.0) 01/03/19 13:14 Hepatitis A IgM Ab Non-reactive (NonReactive) 01/02/19 14:20 Hep Bs Antigen Non-reactive (Negative) 01/02/19 14:20 Hep B Core IgM Ab Non-reactive (NonReactive) 01/02/19 14:20 Hepatitis C Antibody Reactive (NonReactive) A 01/02/19 14:20 Blood Type B POSITIVE 01/02/19 08:19 Antibody Screen Negative 01/02/19 08:19 Crossmatch See Detail 01/02/19 08:19 Nutrition/Malnutrition Assess - Dietary Evaluation Nutrition/Malnutrition Findings: Nutrition Notes Start: 01/02/19 13:43 Freq: Status: Active Protocol: Document 01/06/19 09:40 SA (Rec: 01/06/19 10:31 SA [id number]) Co-Sign 01/06/19 09:40 RM Nutrition Notes Initial or Follow up Reassessment Other Pertinent Diagnosis AMS, cirrhosis, ascites, UTI, esophageal ulcer, possible GI bleed Current Diet Full Liquid Labs/Tests Na: 135 BUN: 33 Glu: 132 Ca: 7.4 Pertinent Medications Reviewed Height 5 ft 11 in Weight 106.5 kg [place] Body Weight (kg) 78.18 BMI 32.7 Weight Status Obese Subjective/Other Information Patient confused at time of visit and unable to speak. Per patient nurse, patient has no appetite and not eating much of his meals. Nurse states patient eating less than 25% of meals. Nurse reports patient spitting up clear liquid and coughing during meals but also stated that pt usually coughs throughout the day. Percent of energy/protein needs met: 19%/8% Burn Absent Trauma Absent #1 Nutrition Diagnosis Inadequate oral intake As Evidenced by Signs and Symptoms full liquid diet Diagnosis Progress(for reassessment Continues documentation) Is patient on ventilator? No Is Patient Ambulatory and/or Out of Bed No REE-([facility]-confined to bed) [phone] Kcal/Kg value to use for calculation 14 Approximate Energy Requirements Using 1491 kcal/Kg Calculation Used for Recommendations Kcal/kg Additional Notes PRO: 111-138g PRO (1.2-1.5g/kg AdBW: 92.3kg) fluid: 1 ml/kcal Nutrition Intervention Change Diet Order: Advance from full liquid when medically feasible. Add Supplement/Snack (indicate name/kcal Ensure Enlive daily /protein ) Provides kCal: 350 Provides Protein (gm) 20 Goal #1 PO tolerance. Goal #2 Diet advancement. Goal #3 Meet at least 75% of kcal and PRO needs via PO Follow-Up By: 01/10/19 Additional Comments F/U: PO tolerance and ONS intakes - Attestation Statement I have reviewed and agreed w/ Malnutrition eval & tx plan: Yes
[2019-01-06] MEDS: CEPHULAC PO SCH (15:39)
[2019-01-06] MEDS: MORPHINE IV PRN (17:12)
[2019-01-07] MEDS: PROTONIX PO SCH ×3 (02:09→21:02)
[2019-01-07 06:09] LABS: Hematocrit 30.9 % (35.5-45.6); Hemoglobin 10.7 gm/dl (11.8-15.2); Mean Corpuscular HGB Conc 35 % (32-34); Mean Corpuscular Volume 92 fl (84-94); Red Blood Count 3.35 M/mm3 (3.65-5.03); Red Cell Distribution Width 16.8 % (13.2-15.2)
[2019-01-07 06:14] LABS: Platelet Count 67 K/mm3 (140-440)
[2019-01-07 06:19] LABS: INR 1.14 (0.87-1.13)
[2019-01-07 06:43] LABS: Albumin 2.2 g/dL (3.9-5); Calcium 7.8 mg/dL (8.4-10.2)
--- NOTE | 2019-01-07 09:31 | Progress Note ---
Assessment and Plan Cultures: 01/01/2019 blood culture: No growth 01/01/2019 urine culture: No growth 01/03/2019 ascitic fluid cultures: no growth at 24 hours A/P: 68-year-old male with chronic hepatitis C and associated liver cirrhosis with ascites admitted with: #1 Hypotension and shock: Ascitic fluid analysis not consistent with SBP. Hypotension following large volume paracentesis. Also with GI bleed. No evidence of pneumonia or urinary tract infection. Bacteremia also ruled out. Ascitic fluid cultures with no growth. Off pressors now. Low suspicion for an infectious process. Off vancomycin and cefepime, on ceftriaxone for now, continue x 3 more days, there is data regarding benefit with Ceftriaxone in the setting of v ariceal bleed. #2 Acute anemia with GI bleed: Patient with esophageal ulcer and varices. Status post EGD and variceal banding. #3 Acute kidney injury: Improving. Nephrology following. 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 Overall prognosis is guarded. #5 Acute encephalopathy: likely multifactorial. improving. Recs: continue IV ceftriaxone 2 gm q24 hrs x 3 more days ending 01-08-19 (data showing benefit in the setting of variceal bleed) Dr. Cantrell will be iron installer this weekend, . Please call for questions. [facility] M: [phone] O:[phone] Subjective Date of service: 01/07/19 Principal diagnosis: cirrhosis Interval history: Patient seen and examined. Denied generalized pain, no fevers. More alert today, conversant. No famiily at bedside. Objective - Exam Narrative Exam: Constitutional: Awake, more alert, conversant.. No acute distress observed Head, Ears, Nose: Normocephalic, atraumatic. External ears, nose normal Eyes: Conjunctivae/corneas clear. No icterus. No ptosis. Neck: Supple, no meningeal signs Oral: no thrush Cardiovascular: S1, S2 normal, Respiratory: clear to auscultation GI: Distended, exam limited Musculoskeletal: 1+ b/l pedal edema Skin: No rash or abscess Hem/Lymphatic: No palpable cervical or supraclavicular nodes. No lymphangitis Psych: flat affect Neurological: Awake, oriented to self and place. - Constitutional Vitals: Vital Signs Temp Pulse Resp BP Pulse Ox 97.3 F L 93 H 20 97/60 96 01/07/19 08:07 01/07/19 08:07 01/07/19 08:07 01/07/19 08:07 01/07/19 08:07 Temperature -Last 24 Hours Temperature 97.3 F Temperature 98.6 F Temperature 97.7 F Temperature 98.3 F - Labs CBC & Chem 7: 01/07/19 05:34 01/07/19 05:34 Labs: Abnormal lab results 01/07/19 01/07/19 01/07/19 Range/Units 05:34 05:34 05:34 RBC 3.35 L (3.65-5.03) M/mm3 Hgb 10.7 L (11.8-15.2) gm/dl Hct 30.9 L (35.5-45.6) % MCHC 35 H (32-34) % RDW 16.8 H (13.2-15.2) % Plt Count 67 L (140-440) K/mm3 PT 15.3 H (12.2-14.9) Sec. INR 1.14 H (0.87-1.13) BUN 33 H (9-20) mg/dL Creatinine 1.6 H (0.8-1.5) mg/dL Glucose 127 H (75-100) mg/dL Calcium 7.8 L (8.4-10.2) mg/dL Total Bilirubin 1.70 H (0.1-1.2) mg/dL Total Protein 5.0 L D (6.3-8.2) g/dL Albumin 2.2 L (3.9-5) g/dL
[2019-01-07] MEDS: CEPHULAC PO SCH ×2 (09:42→21:02)
[2019-01-07] MEDS: ROCEPHIN/NS 2 GM/100 ML 2 GM/100 ML BAG IV SCH (09:43)
[2019-01-07] MEDS ORDERED: XYLOCAINE 1% 20 mL ONE (11:53)
--- NOTE | 2019-01-07 12:48 | Procedure Note ---
Date of procedure: 01/07/19 Pre-op diagnosis: ascites Post-op diagnosis: same Procedure: US paracentesis Findings: moderate to large ascites Anesthesia: local Surgeon: JAVY MARI Estimated blood loss: none Pathology: none Specimen disposition: discarded Condition: stable Disposition: floor
--- NOTE | 2019-01-07 14:23 | Ultrasound Report ---
ULTRASOUND PARACENTESIS HISTORY: Ascites. DESCRIPTION OF PROCEDURE: A time out was performed. Informed consent was obtained. Sterile technique was utilized. Using ultrasound guidance, a 5 [place] centesis needle was advanced into the peritoneal space. There was spontaneous return of clear yellow fluid. 7.8 L of fluid was drained. No complications. IMPRESSION: Successful ultrasound-guided paracentesis.
--- NOTE | 2019-01-07 14:24 | Progress Note ---
Assessment and Plan Assessment and plan: Patient is 68 year old male admitted with sepsis, AMS, chronic hep C, decompensated cirrhosis and ascites and presumed SBP and concern for GI bleed. The patient proceeded to have Paracentesis with full fluid analysis pending. He also underwent EGD with notation of Distal Esophgeal ulcer at the [place] and also 2-3 large Esophageal varies with banding performed. SIRS No sespsis Lactic acidosis GI bleed- Upper GI-gastric ulcers Esophageal Varices X2 with bleed Acute Metabolic Encephalopathy ROBERTO secondary to vasomotor Nephropathy now resolved Ascites Decompensated Cirrhosis Thrombocytopenia Hypokalemia- Replace Plan Continue supportive care BB precluded due to hypotension Continue ammonia but adjust upwards Trial repeat Paracentesis Follow cultures and ascitic fluid analysis Replace and manage electrolytes Continue PPI Octreotide discontinued per GI recommendation Critical care input noted, and will follow there management Renal input appreciated Imaging studies reviewed and no other acute pathology in the brain ID consult. DVT/GI prophy Plan discussed with Nursings staff. History Interval history: Patient seen and examined, remains with confusion. no shortness of breath noted. nursing staff reports. Thinks he is in [facility]. Hospitalist Physical - Physical exam Narrative exam: VITAL SIGNS: Reviewed. GENERAL: The patient appeared well nourished and normally developed. Vital signs as documented. HEAD: No signs of head trauma. EYES: Pupils are equal. Extraocular motions intact. EARS: Hearing grossly intact. MOUTH: Oropharynx is normal. NECK: No adenopathy, no JVD. CHEST: Chest with clear breath sounds bilaterally. No wheezes, rales, or rhonchi. CARDIAC: Regular rate and rhythm. S1 and S2, without murmurs, gallops, or rubs. VASCULAR: No Edema. Peripheral pulses normal and equal in all extremities. ABDOMEN: Soft, without detectable tenderness. distended with positive fluid shift. No rebound or guarding, and no masses palpated. Bowel Sounds normal. MUSCULOSKELETAL: Good range of motion of all major joints. Extremities without clubbing, cyanosis or edema. NEUROLOGIC EXAM: awake, oriented x1. . PSYCHIATRIC: Mood normal. SKIN: No rash or lesions. - Constitutional Vitals: Temp Pulse Resp BP Pulse Ox 97.3 F L 93 H 20 97/60 96 01/07/19 08:07 01/07/19 10:00 01/07/19 08:07 01/07/19 08:07 01/07/19 08:07 Results - Labs CBC & Chem 7: 01/07/19 05:34 01/07/19 05:34 Labs: Laboratory Last Values WBC 7.3 K/mm3 (4.5-11.0) 01/07/19 05:34 RBC 3.35 M/mm3 (3.65-5.03) L 01/07/19 05:34 Hgb 10.7 gm/dl (11.8-15.2) L 01/07/19 05:34 Hct 30.9 % (35.5-45.6) L 01/07/19 05:34 MCV 92 fl (84-94) 01/07/19 05:34 MCH 32 pg (28-32) 01/07/19 05:34 MCHC 35 % (32-34) H 01/07/19 05:34 RDW 16.8 % (13.2-15.2) H 01/07/19 05:34 Plt Count 67 K/mm3 (140-440) L 01/07/19 05:34 Lymph % (Auto) 10.6 % (13.4-35.0) L 01/03/19 05:05 [place] % (Auto) [employer] Person 01/06/19 05:28 Eos % (Auto) 0.0 % (0.0-4.3) 01/03/19 05:05 Baso % (Auto) 0.1 % (0.0-1.8) 01/03/19 05:05 Lymph # 0.8 K/mm3 (1.2-5.4) L 01/03/19 05:05 [place] # 0.8 K/mm3 (0.0-0.8) 01/03/19 05:05 Eos # 0.0 K/mm3 (0.0-0.4) 01/03/19 05:05 Baso # 0.0 K/mm3 (0.0-0.1) 01/03/19 05:05 Add Manual Diff Complete 01/06/19 05:28 Total Counted 100 01/06/19 05:28 Seg Neutrophils % 78.0 % (40.0-70.0) H 01/03/19 05:05 Seg Neuts % (Manual) 74.0 % (40.0-70.0) H 01/06/19 05:28 Band Neutrophils % 0 % 01/06/19 05:28 Lymphocytes % (Manual) 13.0 % (13.4-35.0) L 01/06/19 05:28 Reactive Lymphs % (Man) 0 % 01/06/19 05:28 Monocytes % (Manual) 10.0 % (0.0-7.3) H 01/06/19 05:28 Eosinophils % (Manual) 3.0 % (0.0-4.3) 01/06/19 05:28 Basophils % (Manual) 0 % (0.0-1.8) 01/06/19 05:28 Metamyelocytes % 0 % 01/06/19 05:28 Myelocytes % 0 % 01/06/19 05:28 Promyelocytes % 0 % 01/06/19 05:28 Blast Cells % 0 % 01/06/19 05:28 Nucleated RBC % Not Reportable 01/06/19 05:28 Seg Neutrophils # 5.6 K/mm3 (1.8-7.7) 01/03/19 05:05 Seg Neutrophils # Man 4.8 K/mm3 (1.8-7.7) 01/06/19 05:28 Band Neutrophils # 0.0 K/mm3 01/06/19 05:28 Lymphocytes # (Manual) 0.8 K/mm3 (1.2-5.4) L 01/06/19 05:28 Abs React Lymphs (Man) 0.0 K/mm3 01/06/19 05:28 Monocytes # (Manual) 0.7 K/mm3 (0.0-0.8) 01/06/19 05:28 Eosinophils # (Manual) 0.2 K/mm3 (0.0-0.4) 01/06/19 05:28 Basophils # (Manual) 0.0 K/mm3 (0.0-0.1) 01/06/19 05:28 Metamyelocytes # 0.0 K/mm3 01/06/19 05:28 Myelocytes # 0.0 K/mm3 01/06/19 05:28 Promyelocytes # 0.0 K/mm3 01/06/19 05:28 Blast Cells # 0.0 K/mm3 01/06/19 05:28 WBC Morphology Not Reportable 01/06/19 05:28 Hypersegmented Neuts Not Reportable 01/06/19 05:28 Hyposegmented Neuts Not Reportable 01/06/19 05:28 Hypogranular Neuts Not Reportable 01/06/19 05:28 Smudge Cells Not Reportable 01/06/19 05:28 Toxic Granulation Not Reportable 01/06/19 05:28 Toxic Vacuolation Not Reportable 01/06/19 05:28 Dohle Bodies Not Reportable 01/06/19 05:28 Pelger-Huet Anomaly Not Reportable 01/06/19 05:28 Korin Rods Not Reportable 01/06/19 05:28 Platelet Estimate Consistent w auto 01/06/19 05:28 Clumped Platelets Not Reportable 01/06/19 05:28 Plt Clumps, EDTA Not Reportable 01/06/19 05:28 Large Platelets Not Reportable 01/06/19 05:28 Giant Platelets Not Reportable 01/06/19 05:28 Platelet Satelliting Not Reportable 01/06/19 05:28 Plt Morphology Comment Not Reportable 01/06/19 05:28 RBC Morphology Not Reportable 01/06/19 05:28 Dimorphic RBCs Not Reportable 01/06/19 05:28 Polychromasia Not Reportable 01/06/19 05:28 Hypochromasia Not Reportable 01/06/19 05:28 Poikilocytosis 1+ 01/06/19 05:28 Anisocytosis 1+ 01/06/19 05:28 Microcytosis Not Reportable 01/06/19 05:28 Macrocytosis Few 01/06/19 05:28 Spherocytes Not Reportable 01/06/19 05:28 Pappenheimer Bodies Not Reportable 01/06/19 05:28 Sickle Cells Not Reportable 01/06/19 05:28 Target Cells 1+ 01/06/19 05:28 Tear Drop Cells Not Reportable 01/06/19 05:28 Ovalocytes Not Reportable 01/06/19 05:28 Helmet Cells Not Reportable 01/06/19 05:28 Shrestha-Mermentau Bodies Not Reportable 01/06/19 05:28 Leming Rings Not Reportable 01/06/19 05:28 Amanda Cells Not Reportable 01/06/19 05:28 Bite Cells Not Reportable 01/06/19 05:28 Crenated Cell Not Reportable 01/06/19 05:28 Elliptocytes Not Reportable 01/06/19 05:28 Acanthocytes (Spur) Not Reportable 01/06/19 05:28 Rouleaux Not Reportable 01/06/19 05:28 Hemoglobin C Crystals Not Reportable 01/06/19 05:28 Schistocytes Not Reportable 01/06/19 05:28 Malaria parasites Not Reportable 01/06/19 05:28 Macho Bodies Not Reportable 01/06/19 05:28 Hem Pathologist Commnt No 01/06/19 05:28 PT 15.3 Sec. (12.2-14.9) H 01/07/19 05:34 INR 1.14 (0.87-1.13) H 01/07/19 05:34 APTT 31.1 Sec. (24.2-36.6) 01/01/19 21:25 Sodium 137 mmol/L (137-145) 01/07/19 05:34 Potassium 3.7 mmol/L (3.6-5.0) 01/07/19 05:34 Chloride 101.3 mmol/L (98-107) 01/07/19 05:34 Carbon Dioxide 25 mmol/L (22-30) 01/07/19 05:34 Anion Gap 14 mmol/L 01/07/19 05:34 BUN 33 mg/dL (9-20) H 01/07/19 05:34 Creatinine 1.6 mg/dL (0.8-1.5) H 01/07/19 05:34 Estimated GFR 53 ml/min 01/07/19 05:34 BUN/Creatinine Ratio 21 % 01/07/19 05:34 Glucose 127 mg/dL (75-100) H 01/07/19 05:34 POC Glucose 109 (70-105) H 01/02/19 08:07 Lactic Acid 1.80 mmol/L (0.7-2.0) 01/02/19 08:19 Calcium 7.8 mg/dL (8.4-10.2) L 01/07/19 05:34 Iron 77 ug/dL (49-181) 01/02/19 14:20 TIBC 160 mcg/dL (250-450) L 01/02/19 14:20 Ferritin 1071.0 ng/mL (13.0-400.0) H 01/02/19 14:20 Total Bilirubin 1.70 mg/dL (0.1-1.2) H 01/07/19 05:34 Direct Bilirubin 1.0 mg/dL (0-0.2) H 01/02/19 14:20 Indirect Bilirubin 0.7 mg/dL 01/02/19 14:20 AST 40 units/L (5-40) 01/07/19 05:34 ALT 24 units/L (7-56) 01/07/19 05:34 Alkaline Phosphatase 41 units/L (35-129) 01/07/19 05:34 Ammonia 49.0 umol/L (25-60) 01/01/19 23:23 Total Protein 5.0 g/dL (6.3-8.2) L D 01/07/19 05:34 Albumin 2.2 g/dL (3.9-5) L 01/07/19 05:34 Albumin/Globulin Ratio 0.8 % 01/07/19 05:34 Urine Color [place] (Yellow) 01/01/19 02:22 Urine Turbidity Slightly-cloudy (Clear) 01/01/19 02:22 Urine pH 5.0 (5.0-7.0) 01/01/19 02:22 Ur Specific [place] 1.015 (1.003-1.030) 01/01/19 02:22 Urine Protein 100 mg/dl mg/dL (Negative) 01/01/19 02:22 Urine Glucose (UA) Neg mg/dL (Negative) 01/01/19 02:22 Urine Ketones Tr mg/dL (Negative) 01/01/19 02:22 Urine Blood Mod (Negative) 01/01/19 02:22 Urine Nitrite Neg (Negative) 01/01/19 02:22 Urine Bilirubin Neg (Negative) 01/01/19 02:22 Urine Urobilinogen 4.0 mg/dL (<2.0) 01/01/19 02:22 Ur Leukocyte Esterase Tr (Negative) 01/01/19 02:22 Urine WBC (Auto) 27.0 /HPF (0.0-6.0) H 01/01/19 02:22 Urine RBC (Auto) 3.0 /HPF (0.0-6.0) 01/01/19 02:22 U Epithel Cells (Auto) < 1.0 /HPF (0-13.0) 01/01/19 02:22 Urine Bacteria (Auto) 1+ /HPF (Negative) 01/01/19 02:22 Hyaline Casts 41 /LPF 01/01/19 02:22 Granular Casts 4 /LPF 01/01/19 02:22 Urine Mucus 1+ /HPF 01/01/19 02:22 Fluid Type Ascitic 01/03/19 Unknown Fluid Color Yellow 01/03/19 Unknown Fluid Appearance Cloudy 01/03/19 Unknown Fluid WBC 21 /mm3 01/03/19 Unknown Fluid RBC 3150 /mm3 01/03/19 Unknown Fluid Seg Neutrophils 15.0 % 01/03/19 Unknown Fluid Lymphocytes 81.0 % 01/03/19 Unknown Fluid Reactive Lymphs 0 % 01/03/19 Unknown Fluid Monocytes 4.0 % 01/03/19 Unknown Fluid Eosinophils 0 % 01/03/19 Unknown Fluid Basophils 0 % 01/03/19 Unknown Random Vancomycin 14.1 ug/mL (0-40.0) 01/03/19 13:14 Hepatitis A IgM Ab Non-reactive (NonReactive) 01/02/19 14:20 Hep Bs Antigen Non-reactive (Negative) 01/02/19 14:20 Hep B Core IgM Ab Non-reactive (NonReactive) 01/02/19 14:20 Hepatitis C Antibody Reactive (NonReactive) A 01/02/19 14:20 Blood Type B POSITIVE 01/02/19 08:19 Antibody Screen Negative 01/02/19 08:19 Crossmatch See Detail 01/02/19 08:19 Nutrition/Malnutrition Assess - Dietary Evaluation Nutrition/Malnutrition Findings: Nutrition Notes Start: 01/02/19 13:43 Freq: Status: Active Protocol: Document 01/06/19 09:40 SA (Rec: 01/06/19 10:31 SA [id number]) Co-Sign 01/06/19 09:40 RM Nutrition Notes Initial or Follow up Reassessment Other Pertinent Diagnosis AMS, cirrhosis, ascites, UTI, esophageal ulcer, possible GI bleed Current Diet Full Liquid Labs/Tests Na: 135 BUN: 33 Glu: 132 Ca: 7.4 Pertinent Medications Reviewed Height 5 ft 11 in Weight 106.5 kg [place] Body Weight (kg) 78.18 BMI 32.7 Weight Status Obese Subjective/Other Information Patient confused at time of visit and unable to speak. Per patient nurse, patient has no appetite and not eating much of his meals. Nurse states patient eating less than 25% of meals. Nurse reports patient spitting up clear liquid and coughing during meals but also stated that pt usually coughs throughout the day. Percent of energy/protein needs met: 19%/8% Burn Absent Trauma Absent #1 Nutrition Diagnosis Inadequate oral intake As Evidenced by Signs and Symptoms full liquid diet Diagnosis Progress(for reassessment Continues documentation) Is patient on ventilator? No Is Patient Ambulatory and/or Out of Bed No REE-([facility]-confined to bed) [phone] Kcal/Kg value to use for calculation 14 Approximate Energy Requirements Using 1491 kcal/Kg Calculation Used for Recommendations Kcal/kg Additional Notes PRO: 111-138g PRO (1.2-1.5g/kg AdBW: 92.3kg) fluid: 1 ml/kcal Nutrition Intervention Change Diet Order: Advance from full liquid when medically feasible. Add Supplement/Snack (indicate name/kcal Ensure Enlive daily /protein ) Provides kCal: 350 Provides Protein (gm) 20 Goal #1 PO tolerance. Goal #2 Diet advancement. Goal #3 Meet at least 75% of kcal and PRO needs via PO Follow-Up By: 01/10/19 Additional Comments F/U: PO tolerance and ONS intakes
[2019-01-08] MEDS: D5NS 1,000 ML IV SCH (05:49)
[2019-01-08] MEDS: CEPHULAC PO SCH ×2 (10:21→22:00)
[2019-01-08] MEDS: ROCEPHIN/NS 2 GM/100 ML 2 GM/100 ML BAG IV SCH (10:21)
[2019-01-08] MEDS: PROTONIX PO SCH ×2 (10:22→22:00)
--- NOTE | 2019-01-08 10:49 | Progress Note ---
Assessment and Plan Assessment and plan: Patient is 68 year old male admitted with sepsis, AMS, chronic hep C, decompensated cirrhosis and ascites and presumed SBP and concern for GI bleed. The patient proceeded to have Paracentesis with full fluid analysis pending. He also underwent EGD with notation of Distal Esophgeal ulcer at the [place] and also 2-3 large Esophageal varies with banding performed. SIRS No Sepsis Hepatic Encephalopathy Lactic acidosis GI bleed- Upper GI-gastric ulcers Esophageal Varices X2 with bleed Acute Metabolic Encephalopathy ROBERTO secondary to vasomotor Nephropathy now resolved Ascites Decompensated Cirrhosis Thrombocytopenia Hypokalemia- Replace Plan Continue supportive care BB precluded due to hypotension Continue ammonia but adjust upwards Trial repeat Paracentesis Complete Abx Follow cultures and ascitic fluid analysis Replace and manage electrolytes Continue PPI Octreotide discontinued per GI recommendation Critical care input noted, and will follow there management Renal input appreciated Imaging studies reviewed and no other acute pathology in the brain DVT/GI prophy Plan discussed with Nursings staff. Discharge in AM or thursday. Patient will need SNF History Interval history: Patient seen and examined, remarkable improvement in mental status. no shortness of breath noted. nursing staff reports. Hospitalist Physical - Physical exam Narrative exam: VITAL SIGNS: Reviewed. GENERAL: The patient appeared well nourished and normally developed, still lethargic. Vital signs as documented. HEAD: No signs of head trauma. EYES: Pupils are equal. Extraocular motions intact. EARS: Hearing grossly intact. MOUTH: Oropharynx is normal. NECK: No adenopathy, no JVD. CHEST: Chest with clear breath sounds bilaterally. No wheezes, rales, or r honchi. CARDIAC: Regular rate and rhythm. S1 and S2, without murmurs, gallops, or r ubs. VASCULAR: No Edema. Peripheral pulses normal and equal in all extremities. ABDOMEN: Soft, without detectable tenderness. distended with positive fluid shift. No rebound or guarding, and no masses palpated. Bowel Sounds normal. MUSCULOSKELETAL: Good range of motion of all major joints. Extremities without clubbing, cyanosis or edema. NEUROLOGIC EXAM: awake, oriented x3 . PSYCHIATRIC: Mood normal. SKIN: No rash or lesions. - Constitutional Vitals: Temp Pulse Resp BP Pulse Ox 98.3 F 89 20 86/57 92 01/08/19 07:14 01/08/19 08:49 01/08/19 08:49 01/08/19 07:14 01/08/19 07:14 Results - Labs CBC & Chem 7: 01/07/19 05:34 01/07/19 05:34 Labs: Laboratory Last Values WBC 7.3 K/mm3 (4.5-11.0) 01/07/19 05:34 RBC 3.35 M/mm3 (3.65-5.03) L 01/07/19 05:34 Hgb 10.7 gm/dl (11.8-15.2) L 01/07/19 05:34 Hct 30.9 % (35.5-45.6) L 01/07/19 05:34 MCV 92 fl (84-94) 01/07/19 05:34 MCH 32 pg (28-32) 01/07/19 05:34 MCHC 35 % (32-34) H 01/07/19 05:34 RDW 16.8 % (13.2-15.2) H 01/07/19 05:34 Plt Count 67 K/mm3 (140-440) L 01/07/19 05:34 Lymph % (Auto) 10.6 % (13.4-35.0) L 01/03/19 05:05 [place] % (Auto) [employer] 01/06/19 05:28 Eos % (Auto) 0.0 % (0.0-4.3) 01/03/19 05:05 Baso % (Auto) 0.1 % (0.0-1.8) 01/03/19 05:05 Lymph # 0.8 K/mm3 (1.2-5.4) L 01/03/19 05:05 [place] # 0.8 K/mm3 (0.0-0.8) 01/03/19 05:05 Eos # 0.0 K/mm3 (0.0-0.4) 01/03/19 05:05 Baso # 0.0 K/mm3 (0.0-0.1) 01/03/19 05:05 Add Manual Diff Complete 01/06/19 05:28 Total Counted 100 01/06/19 05:28 Seg Neutrophils % 78.0 % (40.0-70.0) H 01/03/19 05:05 Seg Neuts % (Manual) 74.0 % (40.0-70.0) H 01/06/19 05:28 Band Neutrophils % 0 % 01/06/19 05:28 Lymphocytes % (Manual) 13.0 % (13.4-35.0) L 01/06/19 05:28 Reactive Lymphs % (Man) 0 % 01/06/19 05:28 Monocytes % (Manual) 10.0 % (0.0-7.3) H 01/06/19 05:28 Eosinophils % (Manual) 3.0 % (0.0-4.3) 01/06/19 05:28 Basophils % (Manual) 0 % (0.0-1.8) 01/06/19 05:28 Metamyelocytes % 0 % 01/06/19 05:28 Myelocytes % 0 % 01/06/19 05:28 Promyelocytes % 0 % 01/06/19 05:28 Blast Cells % 0 % 01/06/19 05:28 Nucleated RBC % Not Reportable 01/06/19 05:28 Seg Neutrophils # 5.6 K/mm3 (1.8-7.7) 01/03/19 05:05 Seg Neutrophils # Man 4.8 K/mm3 (1.8-7.7) 01/06/19 05:28 Band Neutrophils # 0.0 K/mm3 01/06/19 05:28 Lymphocytes # (Manual) 0.8 K/mm3 (1.2-5.4) L 01/06/19 05:28 Abs React Lymphs (Man) 0.0 K/mm3 01/06/19 05:28 Monocytes # (Manual) 0.7 K/mm3 (0.0-0.8) 01/06/19 05:28 Eosinophils # (Manual) 0.2 K/mm3 (0.0-0.4) 01/06/19 05:28 Basophils # (Manual) 0.0 K/mm3 (0.0-0.1) 01/06/19 05:28 Metamyelocytes # 0.0 K/mm3 01/06/19 05:28 Myelocytes # 0.0 K/mm3 01/06/19 05:28 Promyelocytes # 0.0 K/mm3 01/06/19 05:28 Blast Cells # 0.0 K/mm3 01/06/19 05:28 WBC Morphology Not Reportable 01/06/19 05:28 Hypersegmented Neuts Not Reportable 01/06/19 05:28 Hyposegmented Neuts Not Reportable 01/06/19 05:28 Hypogranular Neuts Not Reportable 01/06/19 05:28 Smudge Cells Not Reportable 01/06/19 05:28 Toxic Granulation Not Reportable 01/06/19 05:28 Toxic Vacuolation Not Reportable 01/06/19 05:28 Dohle Bodies Not Reportable 01/06/19 05:28 Pelger-Huet Anomaly Not Reportable 01/06/19 05:28 Korin Rods Not Reportable 01/06/19 05:28 Platelet Estimate Consistent w auto 01/06/19 05:28 Clumped Platelets Not Reportable 01/06/19 05:28 Plt Clumps, EDTA Not Reportable 01/06/19 05:28 Large Platelets Not Reportable 01/06/19 05:28 Giant Platelets Not Reportable 01/06/19 05:28 Platelet Satelliting Not Reportable 01/06/19 05:28 Plt Morphology Comment Not Reportable 01/06/19 05:28 RBC Morphology Not Reportable 01/06/19 05:28 Dimorphic RBCs Not Reportable 01/06/19 05:28 Polychromasia Not Reportable 01/06/19 05:28 Hypochromasia Not Reportable 01/06/19 05:28 Poikilocytosis 1+ 01/06/19 05:28 Anisocytosis 1+ 01/06/19 05:28 Microcytosis Not Reportable 01/06/19 05:28 Macrocytosis Few 01/06/19 05:28 Spherocytes Not Reportable 01/06/19 05:28 Pappenheimer Bodies Not Reportable 01/06/19 05:28 Sickle Cells Not Reportable 01/06/19 05:28 Target Cells 1+ 01/06/19 05:28 Tear Drop Cells Not Reportable 01/06/19 05:28 Ovalocytes Not Reportable 01/06/19 05:28 Helmet Cells Not Reportable 01/06/19 05:28 Shrestha-Orrum Bodies Not Reportable 01/06/19 05:28 [place] Rings Not Reportable 01/06/19 05:28 [place] Cells Not Reportable 01/06/19 05:28 Bite Cells Not Reportable 01/06/19 05:28 Crenated Cell Not Reportable 01/06/19 05:28 Elliptocytes Not Reportable 01/06/19 05:28 Acanthocytes (Spur) Not Reportable 01/06/19 05:28 Rouleaux Not Reportable 01/06/19 05:28 Hemoglobin C Crystals Not Reportable 01/06/19 05:28 Schistocytes Not Reportable 01/06/19 05:28 Malaria parasites Not Reportable 01/06/19 05:28 Macho Bodies Not Reportable 01/06/19 05:28 Hem Pathologist Commnt No 01/06/19 05:28 PT 15.3 Sec. (12.2-14.9) H 01/07/19 05:34 INR 1.14 (0.87-1.13) H 01/07/19 05:34 APTT 31.1 Sec. (24.2-36.6) 01/01/19 21:25 Sodium 137 mmol/L (137-145) 01/07/19 05:34 Potassium 3.7 mmol/L (3.6-5.0) 01/07/19 05:34 Chloride 101.3 mmol/L (98-107) 01/07/19 05:34 Carbon Dioxide 25 mmol/L (22-30) 01/07/19 05:34 Anion Gap 14 mmol/L 01/07/19 05:34 BUN 33 mg/dL (9-20) H 01/07/19 05:34 Creatinine 1.6 mg/dL (0.8-1.5) H 01/07/19 05:34 Estimated GFR 53 ml/min 01/07/19 05:34 BUN/Creatinine Ratio 21 % 01/07/19 05:34 Glucose 127 mg/dL (75-100) H 01/07/19 05:34 POC Glucose 109 (70-105) H 01/02/19 08:07 Lactic Acid 1.80 mmol/L (0.7-2.0) 01/02/19 08:19 Calcium 7.8 mg/dL (8.4-10.2) L 01/07/19 05:34 Iron 77 ug/dL (49-181) 01/02/19 14:20 TIBC 160 mcg/dL (250-450) L 01/02/19 14:20 Ferritin 1071.0 ng/mL (13.0-400.0) H 01/02/19 14:20 Total Bilirubin 1.70 mg/dL (0.1-1.2) H 01/07/19 05:34 Direct Bilirubin 1.0 mg/dL (0-0.2) H 01/02/19 14:20 Indirect Bilirubin 0.7 mg/dL 01/02/19 14:20 AST 40 units/L (5-40) 01/07/19 05:34 ALT 24 units/L (7-56) 01/07/19 05:34 Alkaline Phosphatase 41 units/L (35-129) 01/07/19 05:34 Ammonia 49.0 umol/L (25-60) 01/01/19 23:23 Total Protein 5.0 g/dL (6.3-8.2) L D 01/07/19 05:34 Albumin 2.2 g/dL (3.9-5) L 01/07/19 05:34 Albumin/Globulin Ratio 0.8 % 01/07/19 05:34 Urine Color [place] (Yellow) 01/01/19 02:22 Urine Turbidity Slightly-cloudy (Clear) 01/01/19 02:22 Urine pH 5.0 (5.0-7.0) 01/01/19 02:22 Ur Specific [place] 1.015 (1.003-1.030) 01/01/19 02:22 Urine Protein 100 mg/dl mg/dL (Negative) 01/01/19 02:22 Urine Glucose (UA) Neg mg/dL (Negative) 01/01/19 02:22 Urine Ketones Tr mg/dL (Negative) 01/01/19 02:22 Urine Blood Mod (Negative) 01/01/19 02:22 Urine Nitrite Neg (Negative) 01/01/19 02:22 Urine Bilirubin Neg (Negative) 01/01/19 02:22 Urine Urobilinogen 4.0 mg/dL (<2.0) 01/01/19 02:22 Ur Leukocyte Esterase Tr (Negative) 01/01/19 02:22 Urine WBC (Auto) 27.0 /HPF (0.0-6.0) H 01/01/19 02:22 Urine RBC (Auto) 3.0 /HPF (0.0-6.0) 01/01/19 02:22 U Epithel Cells (Auto) < 1.0 /HPF (0-13.0) 01/01/19 02:22 Urine Bacteria (Auto) 1+ /HPF (Negative) 01/01/19 02:22 Hyaline Casts 41 /LPF 01/01/19 02:22 Granular Casts 4 /LPF 01/01/19 02:22 Urine Mucus 1+ /HPF 01/01/19 02:22 Fluid Type Ascitic 01/03/19 Unknown Fluid Color Yellow 01/03/19 Unknown Fluid Appearance Cloudy 01/03/19 Unknown Fluid WBC 21 /mm3 01/03/19 Unknown Fluid RBC 3150 /mm3 01/03/19 Unknown Fluid Seg Neutrophils 15.0 % 01/03/19 Unknown Fluid Lymphocytes 81.0 % 01/03/19 Unknown Fluid Reactive Lymphs 0 % 01/03/19 Unknown Fluid Monocytes 4.0 % 01/03/19 Unknown Fluid Eosinophils 0 % 01/03/19 Unknown Fluid Basophils 0 % 01/03/19 Unknown Random Vancomycin 14.1 ug/mL (0-40.0) 01/03/19 13:14 Hepatitis A IgM Ab Non-reactive (NonReactive) 01/02/19 14:20 Hep Bs Antigen Non-reactive (Negative) 01/02/19 14:20 Hep B Core IgM Ab Non-reactive (NonReactive) 01/02/19 14:20 Hepatitis C Antibody Reactive (NonReactive) A 01/02/19 14:20 Blood Type B POSITIVE 01/02/19 08:19 Antibody Screen Negative 01/02/19 08:19 Crossmatch See Detail 01/02/19 08:19 Nutrition/Malnutrition Assess - Dietary Evaluation Nutrition/Malnutrition Findings: Nutrition Notes Start: 01/02/19 13:43 Freq: Status: Active Protocol: Document 01/06/19 09:40 SA (Rec: 01/06/19 10:31 SA [id number]) Co-Sign 01/06/19 09:40 RM Nutrition Notes Initial or Follow up Reassessment Other Pertinent Diagnosis AMS, cirrhosis, ascites, UTI, esophageal ulcer, possible GI bleed Current Diet Full Liquid Labs/Tests Na: 135 BUN: 33 Glu: 132 Ca: 7.4 Pertinent Medications Reviewed Height 5 ft 11 in Weight 106.5 kg [place] Body Weight (kg) 78.18 BMI 32.7 Weight Status Obese Subjective/Other Information Patient confused at time of visit and unable to speak. Per patient nurse, patient has no appetite and not eating much of his meals. Nurse states patient eating less than 25% of meals. Nurse reports patient spitting up clear liquid and coughing during meals but also stated that pt usually coughs throughout the day. Percent of energy/protein needs met: 19%/8% Burn Absent Trauma Absent #1 Nutrition Diagnosis Inadequate oral intake As Evidenced by Signs and Symptoms full liquid diet Diagnosis Progress(for reassessment Continues documentation) Is patient on ventilator? No Is Patient Ambulatory and/or Out of Bed No REE-([facility]-confined to bed) [phone] Kcal/Kg value to use for calculation 14 Approximate Energy Requirements Using 1491 kcal/Kg Calculation Used for Recommendations Kcal/kg Additional Notes PRO: 111-138g PRO (1.2-1.5g/kg AdBW: 92.3kg) fluid: 1 ml/kcal Nutrition Intervention Change Diet Order: Advance from full liquid when medically feasible. Add Supplement/Snack (indicate name/kcal Ensure Enlive daily /protein ) Provides kCal: 350 Provides Protein (gm) 20 Goal #1 PO tolerance. Goal #2 Diet advancement. Goal #3 Meet at least 75% of kcal and PRO needs via PO Follow-Up By: 01/10/19 Additional Comments F/U: PO tolerance and ONS intakes
--- NOTE | 2019-01-08 15:02 | Progress Note ---
Assessment and Plan Impression: * Acute kidney injury secondary to HRS vs ATN * Sepsis * UGI bleed --Large esophageal varices s/p banding --Gastric ulcer * Hepatitis C cirrhosis * Abdominal ascites --s/p therapeutic paracentesis appx 9 L * Hyponatremia * Electrolyte derangements - hypoK, hypoMg * Metabolic acidosis PLan: * No AM labs available for review - remain uncollected * No acute indication for HD * Transfuse pRBC prn * Abx per ID - Rocephin * Replete lytes prn * Maintain MAP >65 * Avoid potential nephrotoxins * Dose medications for renal function Subjective Date of service: 01/08/19 Principal diagnosis: cirrhosis Interval history: Patient without complaint Objective - Vital Signs Vital signs: Vital Signs - 12hr 01/08/19 01/08/19 01/08/19 07:14 08:49 13:25 Temperature 98.3 F 97.7 F Pulse Rate 96 H 95 H Pulse Rate [ 89 From Monitor] Respiratory 18 20 20 Rate Blood Pressure 86/57 100/66 O2 Sat by Pulse 92 98 Oximetry - General Appearance General appearance: well-developed EENT: ATNC Respiratory: Present: Decreased Breath Sounds Cardiology: regular, S1S2 Gastrointestinal: no tenderness, no distended Musculoskeletal: other (+ edema) Psychiatric: cooperative - Lab 01/07/19 05:34 01/07/19 05:34 Most recent lab results Calcium 7.8 mg/dL (8.4-10.2) L 01/07/19 05:34 Medications & Allergies - Medications Allergies/Adverse Reactions: Allergies No Known Allergies Allergy (Verified 01/01/19 23:23) Home Medications: Home Medications Medication Instructions Recorded Confirmed Last Taken Type No Known Home Medications [No 01/07/19 01/07/19 Unknown History Reported Home Medications] Active Medications: Generic Name Dose Route Start Last Admin Trade Name Freq PRN Reason Stop Dose Admin Ceftriaxone Sodium 2 gm in 100 mls @ 200 mls/hr 01/04/19 16:00 01/08/19 10:21 Rocephin/Ns 2 Gm/100 Ml IV 200 mls/hr Q24HR LORI Administration Protocol Dextrose/Sodium Chloride 1,000 mls @ 50 mls/hr 01/05/19 13:00 01/08/19 05:49 D5ns IV 50 mls/hr DIRECT LORI Administration Lactulose 20 gm 01/07/19 22:00 01/08/19 10:21 Cephulac PO 20 gm BID LORI Administration Morphine Sulfate 2 mg 01/04/19 10:02 01/06/19 17:12 Morphine IV 2 mg Q4H PRN Administration Pain, Moderate (4-6) Ondansetron HCl 4 mg 01/02/19 01:49 01/02/19 11:45 Zofran IV 4 mg Q8H PRN Administration Nausea And Vomiting Pantoprazole Sodium 40 mg 01/05/19 22:00 01/08/19 10:22 Protonix PO 40 mg BID LORI Administration
[2019-01-08 16:38] LABS: Hematocrit 30.7 % (35.5-45.6); Hemoglobin 10.5 gm/dl (11.8-15.2); Mean Corpuscular HGB Conc 34 % (32-34); Mean Corpuscular Volume 94 fl (84-94); Red Blood Count 3.27 M/mm3 (3.65-5.03); Red Cell Distribution Width 17.3 % (13.2-15.2)
[2019-01-08 16:40] LABS: Platelet Count 74 K/mm3 (140-440)
[2019-01-08 16:53] LABS: Calcium 7.7 mg/dL (8.4-10.2)
[2019-01-09] MEDS: D5NS 1,000 ML IV SCH (00:31)
--- NOTE | 2019-01-09 09:11 | Progress Note ---
Assessment and Plan Assessment and plan: Patient is 68 year old male admitted with sepsis, AMS, chronic hep C, decompensated cirrhosis and ascites and presumed SBP and concern for GI bleed. The patient proceeded to have Paracentesis with full fluid analysis pending. He also underwent EGD with notation of Distal Esophgeal ulcer at the [place] and also 2-3 large Esophageal varies with banding performed. SIRS No Sepsis Hepatic Encephalopathy Lactic acidosis GI bleed- Upper GI-gastric ulcers Esophageal Varices X2 with bleed Acute Metabolic Encephalopathy ROBERTO secondary to vasomotor Nephropathy now resolved Ascites Decompensated Cirrhosis Thrombocytopenia Hypokalemia- Replace Plan Continue supportive care Encouraged patient to eat. BB precluded due to hypotension Continue ammonia but adjust upwards Repeat paracenetesis Complete Abx Replace and manage electrolytes Continue PPI Octreotide discontinued per GI recommendation Critical care input noted, and will follow there management Renal input appreciated Imaging studies reviewed and no other acute pathology in the brain DVT/GI prophy Plan discussed with Nursings staff. Discharge in AM or thursday. Patient will need SNF History Interval history: Patient seen and examined, remarkable improvement in mental status. no shortness of breath noted. nursing staff reports patient not eating but no complaints about pain with food. Hospitalist Physical - Physical exam Narrative exam: VITAL SIGNS: Reviewed. GENERAL: The patient appeared well nourished and normally developed, still lethargic. Vital signs as documented. HEAD: No signs of head trauma. EYES: Pupils are equal. Extraocular motions intact. EARS: Hearing grossly intact. MOUTH: Oropharynx is normal. NECK: No adenopathy, no JVD. CHEST: Chest with clear breath sounds bilaterally. No wheezes, rales, or rhonchi. CARDIAC: Regular rate and rhythm. S1 and S2, without murmurs, gallops, or rubs. VASCULAR: No Edema. Peripheral pulses normal and equal in all extremities. ABDOMEN: Soft, without detectable tenderness. distended with positive fluid shift. No rebound or guarding, and no masses palpated. Bowel Sounds normal. MUSCULOSKELETAL: Good range of motion of all major joints. Extremities without clubbing, cyanosis or edema. NEUROLOGIC EXAM: awake, oriented x3 . PSYCHIATRIC: Mood normal. SKIN: No rash or lesions. - Constitutional Vitals: Temp Pulse Resp BP Pulse Ox 97.7 F 94 H 20 90/59 97 01/09/19 08:30 01/09/19 08:30 01/09/19 08:30 01/09/19 08:30 01/09/19 08:30 Results - Labs CBC & Chem 7: 01/08/19 16:23 01/09/19 07:50 Labs: Laboratory Last Values WBC 6.9 K/mm3 (4.5-11.0) 01/08/19 16:23 RBC 3.27 M/mm3 (3.65-5.03) L 01/08/19 16:23 Hgb 10.5 gm/dl (11.8-15.2) L 01/08/19 16:23 Hct 30.7 % (35.5-45.6) L 01/08/19 16:23 MCV 94 fl (84-94) 01/08/19 16:23 MCH 32 pg (28-32) 01/08/19 16:23 MCHC 34 % (32-34) 01/08/19 16:23 RDW 17.3 % (13.2-15.2) H 01/08/19 16:23 Plt Count 74 K/mm3 (140-440) L 01/08/19 16:23 Lymph % (Auto) 10.6 % (13.4-35.0) L 01/03/19 05:05 [place] % (Auto) Hospital Nursing Assistant 01/06/19 05:28 Eos % (Auto) 0.0 % (0.0-4.3) 01/03/19 05:05 Baso % (Auto) 0.1 % (0.0-1.8) 01/03/19 05:05 Lymph # 0.8 K/mm3 (1.2-5.4) L 01/03/19 05:05 [place] # 0.8 K/mm3 (0.0-0.8) 01/03/19 05:05 Eos # 0.0 K/mm3 (0.0-0.4) 01/03/19 05:05 Baso # 0.0 K/mm3 (0.0-0.1) 01/03/19 05:05 Add Manual Diff Complete 01/06/19 05:28 Total Counted 100 01/06/19 05:28 Seg Neutrophils % 78.0 % (40.0-70.0) H 01/03/19 05:05 Seg Neuts % (Manual) 74.0 % (40.0-70.0) H 01/06/19 05:28 Band Neutrophils % 0 % 01/06/19 05:28 Lymphocytes % (Manual) 13.0 % (13.4-35.0) L 01/06/19 05:28 Reactive Lymphs % (Man) 0 % 01/06/19 05:28 Monocytes % (Manual) 10.0 % (0.0-7.3) H 01/06/19 05:28 Eosinophils % (Manual) 3.0 % (0.0-4.3) 01/06/19 05:28 Basophils % (Manual) 0 % (0.0-1.8) 01/06/19 05:28 Metamyelocytes % 0 % 01/06/19 05:28 Myelocytes % 0 % 01/06/19 05:28 Promyelocytes % 0 % 01/06/19 05:28 Blast Cells % 0 % 01/06/19 05:28 Nucleated RBC % Not Reportable 01/06/19 05:28 Seg Neutrophils # 5.6 K/mm3 (1.8-7.7) 01/03/19 05:05 Seg Neutrophils # Man 4.8 K/mm3 (1.8-7.7) 01/06/19 05:28 Band Neutrophils # 0.0 K/mm3 01/06/19 05:28 Lymphocytes # (Manual) 0.8 K/mm3 (1.2-5.4) L 01/06/19 05:28 Abs React Lymphs (Man) 0.0 K/mm3 01/06/19 05:28 Monocytes # (Manual) 0.7 K/mm3 (0.0-0.8) 01/06/19 05:28 Eosinophils # (Manual) 0.2 K/mm3 (0.0-0.4) 01/06/19 05:28 Basophils # (Manual) 0.0 K/mm3 (0.0-0.1) 01/06/19 05:28 Metamyelocytes # 0.0 K/mm3 01/06/19 05:28 Myelocytes # 0.0 K/mm3 01/06/19 05:28 Promyelocytes # 0.0 K/mm3 01/06/19 05:28 Blast Cells # 0.0 K/mm3 01/06/19 05:28 WBC Morphology Not Reportable 01/06/19 05:28 Hypersegmented Neuts Not Reportable 01/06/19 05:28 Hyposegmented Neuts Not Reportable 01/06/19 05:28 Hypogranular Neuts Not Reportable 01/06/19 05:28 Smudge Cells Not Reportable 01/06/19 05:28 Toxic Granulation Not Reportable 01/06/19 05:28 Toxic Vacuolation Not Reportable 01/06/19 05:28 Dohle Bodies Not Reportable 01/06/19 05:28 Pelger-Huet Anomaly Not Reportable 01/06/19 05:28 Korin Rods Not Reportable 01/06/19 05:28 Platelet Estimate Consistent w auto 01/06/19 05:28 Clumped Platelets Not Reportable 01/06/19 05:28 Plt Clumps, EDTA Not Reportable 01/06/19 05:28 Large Platelets Not Reportable 01/06/19 05:28 Giant Platelets Not Reportable 01/06/19 05:28 Platelet Satelliting Not Reportable 01/06/19 05:28 Plt Morphology Comment Not Reportable 01/06/19 05:28 RBC Morphology Not Reportable 01/06/19 05:28 Dimorphic RBCs Not Reportable 01/06/19 05:28 Polychromasia Not Reportable 01/06/19 05:28 Hypochromasia Not Reportable 01/06/19 05:28 Poikilocytosis 1+ 01/06/19 05:28 Anisocytosis 1+ 01/06/19 05:28 Microcytosis Not Reportable 01/06/19 05:28 Macrocytosis Few 01/06/19 05:28 Spherocytes Not Reportable 01/06/19 05:28 Pappenheimer Bodies Not Reportable 01/06/19 05:28 Sickle Cells Not Reportable 01/06/19 05:28 Target Cells 1+ 01/06/19 05:28 Tear Drop Cells Not Reportable 01/06/19 05:28 Ovalocytes Not Reportable 01/06/19 05:28 Helmet Cells Not Reportable 01/06/19 05:28 Sh[place] Bodies Not Reportable 01/06/19 05:28 Follett Rings Not Reportable 01/06/19 05:28 Amanda Cells Not Reportable 01/06/19 05:28 Bite Cells Not Reportable 01/06/19 05:28 Crenated Cell Not Reportable 01/06/19 05:28 Elliptocytes Not Reportable 01/06/19 05:28 Acanthocytes (Spur) Not Reportable 01/06/19 05:28 Rouleaux Not Reportable 01/06/19 05:28 Hemoglobin C Crystals Not Reportable 01/06/19 05:28 Schistocytes Not Reportable 01/06/19 05:28 Malaria parasites Not Reportable 01/06/19 05:28 Macho Bodies Not Reportable 01/06/19 05:28 Hem Pathologist Commnt No 01/06/19 05:28 PT 15.3 Sec. (12.2-14.9) H 01/07/19 05:34 INR 1.14 (0.87-1.13) H 01/07/19 05:34 APTT 31.1 Sec. (24.2-36.6) 01/01/19 21:25 Sodium 139 mmol/L (137-145) 01/08/19 16:23 Potassium 3.6 mmol/L (3.6-5.0) 01/08/19 16:23 Chloride 106.9 mmol/L (98-107) 01/08/19 16:23 Carbon Dioxide 25 mmol/L (22-30) 01/08/19 16:23 Anion Gap 11 mmol/L 01/08/19 16:23 BUN 34 mg/dL (9-20) H 01/08/19 16:23 Creatinine 1.7 mg/dL (0.8-1.5) H 01/08/19 16:23 Estimated GFR 49 ml/min 01/08/19 16:23 BUN/Creatinine Ratio 20 % 01/08/19 16:23 Glucose 136 mg/dL (75-100) H 01/08/19 16:23 POC Glucose 109 (70-105) H 01/02/19 08:07 Lactic Acid 1.80 mmol/L (0.7-2.0) 01/02/19 08:19 Calcium 7.7 mg/dL (8.4-10.2) L 01/08/19 16:23 Iron 77 ug/dL (49-181) 01/02/19 14:20 TIBC 160 mcg/dL (250-450) L 01/02/19 14:20 Ferritin 1071.0 ng/mL (13.0-400.0) H 01/02/19 14:20 Total Bilirubin 1.30 mg/dL (0.1-1.2) H 01/08/19 16:23 Direct Bilirubin 1.0 mg/dL (0-0.2) H 01/02/19 14:20 Indirect Bilirubin 0.7 mg/dL 01/02/19 14:20 AST 45 units/L (5-40) H 01/08/19 16:23 ALT 24 units/L (7-56) 01/08/19 16:23 Alkaline Phosphatase 49 units/L (35-129) 01/08/19 16:23 Ammonia 49.0 umol/L (25-60) 01/01/19 23:23 Total Protein 4.4 g/dL (6.3-8.2) L 01/08/19 16:23 Albumin 2.0 g/dL (3.9-5) L 01/08/19 16:23 Albumin/Globulin Ratio 0.8 % 01/08/19 16:23 Urine Color [place] (Yellow) 01/01/19 02:22 Urine Turbidity Slightly-cloudy (Clear) 01/01/19 02:22 Urine pH 5.0 (5.0-7.0) 01/01/19 02:22 Ur Specific [place] 1.015 (1.003-1.030) 01/01/19 02:22 Urine Protein 100 mg/dl mg/dL (Negative) 01/01/19 02:22 Urine Glucose (UA) Neg mg/dL (Negative) 01/01/19 02:22 Urine Ketones Tr mg/dL (Negative) 01/01/19 02:22 Urine Blood Mod (Negative) 01/01/19 02:22 Urine Nitrite Neg (Negative) 01/01/19 02:22 Urine Bilirubin Neg (Negative) 01/01/19 02:22 Urine Urobilinogen 4.0 mg/dL (<2.0) 01/01/19 02:22 Ur Leukocyte Esterase Tr (Negative) 01/01/19 02:22 Urine WBC (Auto) 27.0 /HPF (0.0-6.0) H 01/01/19 02:22 Urine RBC (Auto) 3.0 /HPF (0.0-6.0) 01/01/19 02:22 U Epithel Cells (Auto) < 1.0 /HPF (0-13.0) 01/01/19 02:22 Urine Bacteria (Auto) 1+ /HPF (Negative) 01/01/19 02:22 Hyaline Casts 41 /LPF 01/01/19 02:22 Granular Casts 4 /LPF 01/01/19 02:22 Urine Mucus 1+ /HPF 01/01/19 02:22 Fluid Type Ascitic 01/03/19 Unknown Fluid Color Yellow 01/03/19 Unknown Fluid Appearance Cloudy 01/03/19 Unknown Fluid WBC 21 /mm3 01/03/19 Unknown Fluid RBC 3150 /mm3 01/03/19 Unknown Fluid Seg Neutrophils 15.0 % 01/03/19 Unknown Fluid Lymphocytes 81.0 % 01/03/19 Unknown Fluid Reactive Lymphs 0 % 01/03/19 Unknown Fluid Monocytes 4.0 % 01/03/19 Unknown Fluid Eosinophils 0 % 01/03/19 Unknown Fluid Basophils 0 % 01/03/19 Unknown Random Vancomycin 14.1 ug/mL (0-40.0) 01/03/19 13:14 Hepatitis A IgM Ab Non-reactive (NonReactive) 01/02/19 14:20 Hep Bs Antigen Non-reactive (Negative) 01/02/19 14:20 Hep B Core IgM Ab Non-reactive (NonReactive) 01/02/19 14:20 Hepatitis C Antibody Reactive (NonReactive) A 01/02/19 14:20 Blood Type B POSITIVE 01/02/19 08:19 Antibody Screen Negative 01/02/19 08:19 Crossmatch See Detail 01/02/19 08:19 Nutrition/Malnutrition Assess - Dietary Evaluation Nutrition/Malnutrition Findings: Nutrition Notes Start: 01/02/19 13:43 Freq: Status: Active Protocol: Document 01/06/19 09:40 SA (Rec: 01/06/19 10:31 SA [id number]) Co-Sign 01/06/19 09:40 RM Nutrition Notes Initial or Follow up Reassessment Other Pertinent Diagnosis AMS, cirrhosis, ascites, UTI, esophageal ulcer, possible GI bleed Current Diet Full Liquid Labs/Tests Na: 135 BUN: 33 Glu: 132 Ca: 7.4 Pertinent Medications Reviewed Height 5 ft 11 in Weight 106.5 kg [place] Body Weight (kg) 78.18 BMI 32.7 Weight Status Obese Subjective/Other Information Patient confused at time of visit and unable to speak. Per patient nurse, patient has no appetite and not eating much of his meals. Nurse states patient eating less than 25% of meals. Nurse reports patient spitting up clear liquid and coughing during meals but also stated that pt usually coughs throughout the day. Percent of energy/protein needs met: 19%/8% Burn Absent Trauma Absent #1 Nutrition Diagnosis Inadequate oral intake As Evidenced by Signs and Symptoms full liquid diet Diagnosis Progress(for reassessment Continues documentation) Is patient on ventilator? No Is Patient Ambulatory and/or Out of Bed No REE-([place]-confined to bed) [phone] Kcal/Kg value to use for calculation 14 Approximate Energy Requirements Using 1491 kcal/Kg Calculation Used for Recommendations Kcal/kg Additional Notes PRO: 111-138g PRO (1.2-1.5g/kg AdBW: 92.3kg) fluid: 1 ml/kcal Nutrition Intervention Change Diet Order: Advance from full liquid when medically feasible. Add Supplement/Snack (indicate name/kcal Ensure Enlive daily /protein ) Provides kCal: 350 Provides Protein (gm) 20 Goal #1 PO tolerance. Goal #2 Diet advancement. Goal #3 Meet at least 75% of kcal and PRO needs via PO Follow-Up By: 01/10/19 Additional Comments F/U: PO tolerance and ONS intakes
--- NOTE | 2019-01-09 09:34 | Progress Note ---
Assessment and Plan Cultures: 01/01/2019 blood culture: No growth 01/01/2019 urine culture: No growth 01/03/2019 ascitic fluid cultures: no growth at 24 hours A/P: 68-year-old male with chronic hepatitis C and associated liver cirrhosis with ascites admitted with: #1 Hypotension and shock: Improving. Ascitic fluid analysis not consistent with SBP. Hypotension following large volume paracentesis. Also with GI bleed. No evidence of pneumonia or urinary tract infection. Bacteremia also ruled out. Ascitic fluid cultures with no growth. Off pressors now. Low suspicion for an infectious process. Clinically stable, monitor off antibiotics. #2 Acute anemia with GI bleed: Improved. Patient with esophageal ulcer and varices. Status post EGD and variceal banding. #3 Acute kidney injury: Improving. Nephrology following. 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 Overall prognosis is guarded. #5 Acute encephalopathy: likely multifactorial. improving. Recs: discontinue Ceftriaxone, antibiotic course completed- Clinically stable monitor off antibiotics ID is signing off [facility] M: [id number] O:[phone] Subjective Date of service: 01/09/19 Principal diagnosis: cirrhosis Interval history: Patient seen and examined. Sitting on the side of the bed, less conversant today. denied generalized pain. No fevers Objective - Exam Narrative Exam: Constitutional: Awake. mostly non-conversant. No acute distress observed Head, Ears, Nose: Normocephalic, atraumatic. External ears, nose normal Eyes: Conjunctivae/corneas clear. No icterus. No ptosis. Neck: Supple, no meningeal signs Oral: no thrush Cardiovascular: S1, S2 normal, Respiratory: clear to auscultation GI: Distended, exam limited Musculoskeletal: 1+ b/l pedal edema Skin: No rash or abscess Hem/Lymphatic: No palpable cervical or supraclavicular nodes. No lymphangitis Psych: flat affect Neurological: Awake, oriented to self and place. - Constitutional Vitals: Vital Signs Temp Pulse Resp BP Pulse Ox 97.7 F 94 H 20 90/59 97 01/09/19 08:30 01/09/19 08:30 01/09/19 08:30 01/09/19 08:30 01/09/19 08:30 Temperature -Last 24 Hours Temperature 97.7 F Temperature 98.6 F Temperature 98.0 F Temperature 97.7 F - Labs CBC & Chem 7: 01/08/19 16:23 01/09/19 07:50 Labs: Abnormal lab results 01/08/19 01/08/19 Range/Units 16:23 16:23 RBC 3.27 L (3.65-5.03) M/mm3 Hgb 10.5 L (11.8-15.2) gm/dl Hct 30.7 L (35.5-45.6) % RDW 17.3 H (13.2-15.2) % Plt Count 74 L (140-440) K/mm3 BUN 34 H (9-20) mg/dL Creatinine 1.7 H (0.8-1.5) mg/dL Glucose 136 H (75-100) mg/dL Calcium 7.7 L (8.4-10.2) mg/dL Total Bilirubin 1.30 H (0.1-1.2) mg/dL AST 45 H (5-40) units/L Total Protein 4.4 L (6.3-8.2) g/dL Albumin 2.0 L (3.9-5) g/dL
[2019-01-09] MEDS: CEPHULAC PO SCH ×3 (10:08→22:55)
[2019-01-09] MEDS: PROTONIX PO SCH ×3 (10:08→22:55)
[2019-01-09] MEDS: ZOFRAN IV PRN (10:31)
[2019-01-09 10:37] LABS: Calcium 7.7 mg/dL (8.4-10.2)
[2019-01-09] MEDS: KCL 10MEQ/100ML 10 MEQ/100 ML BAG IV SCH ×2 (13:07→14:22)
--- NOTE | 2019-01-09 14:40 | Progress Note ---
Assessment and Plan Impression: * Acute kidney injury secondary to HRS vs ATN * Sepsis * UGI bleed --Large esophageal varices s/p banding --Gastric ulcer * Hepatitis C cirrhosis * Abdominal ascites --s/p therapeutic paracentesis appx 9 L * Hyponatremia - resolved * Electrolyte derangements - hypoK, hypoMg * Metabolic acidosis PLan: * Renal function is stable * Replete K * Transfuse pRBC prn * Replete lytes prn * Maintain MAP >65 * Avoid potential nephrotoxins * Dose medications for renal function Subjective Date of service: 01/09/19 Principal diagnosis: cirrhosis Interval history: No acute events overnight Objective - Vital Signs Vital signs: Vital Signs - 12hr 01/09/19 01/09/19 01/09/19 03:36 08:24 08:30 Temperature 98.6 F 97.7 F Pulse Rate 96 H 94 H Respiratory 18 22 20 Rate Blood Pressure 99/69 90/59 O2 Sat by Pulse 99 97 97 Oximetry - General Appearance General appearance: well-developed, well-nourished EENT: ATNC Respiratory: Present: Decreased Breath Sounds Cardiology: regular, S1S2 Gastrointestinal: normal, no tenderness Integumentary: warm and dry Musculoskeletal: other (+edema) Psychiatric: cooperative - Lab 01/08/19 16:23 01/09/19 07:50 Most recent lab results Calcium 7.7 mg/dL (8.4-10.2) L 01/09/19 07:50 Medications & Allergies - Medications Allergies/Adverse Reactions: Allergies No Known Allergies Allergy (Verified 01/01/19 23:23) Home Medications: Home Medications Medication Instructions Recorded Confirmed Last Taken Type No Known Home Medications [No 01/07/19 01/07/19 Unknown History Reported Home Medications] Active Medications: Generic Name Dose Route Start Last Admin Trade Name Freq PRN Reason Stop Dose Admin Dextrose/Sodium Chloride 1,000 mls @ 75 mls/hr 01/05/19 13:00 01/09/19 00:31 D5ns IV 50 mls/hr DIRECT LORI Administration Potassium Chloride 10 meq in 100 mls @ 100 mls/hr 01/09/19 14:00 01/09/19 14:22 Kcl 10meq/100ml IV 01/09/19 15:59 100 mls/hr Q1H LORI Administration Lactulose 20 gm 01/07/19 22:00 01/09/19 11:00 Cephulac PO Not Given BID [facility] Morphine Sulfate 2 mg 01/04/19 10:02 01/06/19 17:12 Morphine IV 2 mg Q4H PRN Administration Pain, Moderate (4-6) Ondansetron HCl 4 mg 01/02/19 01:49 01/09/19 10:31 Zofran IV 4 mg Q8H PRN Administration Nausea And Vomiting Pantoprazole Sodium 40 mg 01/05/19 22:00 01/09/19 11:00 Protonix PO Not Given BID LORI
[2019-01-10] MEDS: D5NS 1,000 ML IV SCH ×2 (00:27→19:54)
[2019-01-10 05:39] LABS: Hematocrit 31.8 % (35.5-45.6); Hemoglobin 10.9 gm/dl (11.8-15.2); Mean Corpuscular HGB Conc 34 % (32-34); Mean Corpuscular Volume 94 fl (84-94); Red Blood Count 3.39 M/mm3 (3.65-5.03); Red Cell Distribution Width 17.4 % (13.2-15.2)
[2019-01-10 05:51] LABS: Albumin 1.9 g/dL (3.9-5); Calcium 7.8 mg/dL (8.4-10.2)
[2019-01-10 05:55] LABS: Platelet Count 64 K/mm3 (140-440)
--- NOTE | 2019-01-10 08:44 | Progress Note ---
Hospitalist Physical - Constitutional Vitals: Temp Pulse Resp BP Pulse Ox 97.7 F 92 H 18 99/64 95 01/10/19 02:26 01/10/19 02:26 01/10/19 02:26 01/10/19 02:26 01/10/19 02:26 Results - Labs CBC & Chem 7: 01/10/19 04:15 01/10/19 04:15 Labs: Laboratory Last Values WBC 9.1 K/mm3 (4.5-11.0) 01/10/19 04:15 RBC 3.39 M/mm3 (3.65-5.03) L 01/10/19 04:15 Hgb 10.9 gm/dl (11.8-15.2) L 01/10/19 04:15 Hct 31.8 % (35.5-45.6) L 01/10/19 04:15 MCV 94 fl (84-94) 01/10/19 04:15 MCH 32 pg (28-32) 01/10/19 04:15 MCHC 34 % (32-34) 01/10/19 04:15 RDW 17.4 % (13.2-15.2) H 01/10/19 04:15 Plt Count 64 K/mm3 (140-440) L 01/10/19 04:15 Lymph % (Auto) 10.6 % (13.4-35.0) L 01/03/19 05:05 [place] % (Auto) [employer] Assistant 01/06/19 05:28 Eos % (Auto) 0.0 % (0.0-4.3) 01/03/19 05:05 Baso % (Auto) 0.1 % (0.0-1.8) 01/03/19 05:05 Lymph # 0.8 K/mm3 (1.2-5.4) L 01/03/19 05:05 [place] # 0.8 K/mm3 (0.0-0.8) 01/03/19 05:05 Eos # 0.0 K/mm3 (0.0-0.4) 01/03/19 05:05 Baso # 0.0 K/mm3 (0.0-0.1) 01/03/19 05:05 Add Manual Diff Complete 01/06/19 05:28 Total Counted 100 01/06/19 05:28 Seg Neutrophils % 78.0 % (40.0-70.0) H 01/03/19 05:05 Seg Neuts % (Manual) 74.0 % (40.0-70.0) H 01/06/19 05:28 Band Neutrophils % 0 % 01/06/19 05:28 Lymphocytes % (Manual) 13.0 % (13.4-35.0) L 01/06/19 05:28 Reactive Lymphs % (Man) 0 % 01/06/19 05:28 Monocytes % (Manual) 10.0 % (0.0-7.3) H 01/06/19 05:28 Eosinophils % (Manual) 3.0 % (0.0-4.3) 01/06/19 05:28 Basophils % (Manual) 0 % (0.0-1.8) 01/06/19 05:28 Metamyelocytes % 0 % 01/06/19 05:28 Myelocytes % 0 % 01/06/19 05:28 Promyelocytes % 0 % 01/06/19 05:28 Blast Cells % 0 % 01/06/19 05:28 Nucleated RBC % Not Reportable 01/06/19 05:28 Seg Neutrophils # 5.6 K/mm3 (1.8-7.7) 01/03/19 05:05 Seg Neutrophils # Man 4.8 K/mm3 (1.8-7.7) 01/06/19 05:28 Band Neutrophils # 0.0 K/mm3 01/06/19 05:28 Lymphocytes # (Manual) 0.8 K/mm3 (1.2-5.4) L 01/06/19 05:28 Abs React Lymphs (Man) 0.0 K/mm3 01/06/19 05:28 Monocytes # (Manual) 0.7 K/mm3 (0.0-0.8) 01/06/19 05:28 Eosinophils # (Manual) 0.2 K/mm3 (0.0-0.4) 01/06/19 05:28 Basophils # (Manual) 0.0 K/mm3 (0.0-0.1) 01/06/19 05:28 Metamyelocytes # 0.0 K/mm3 01/06/19 05:28 Myelocytes # 0.0 K/mm3 01/06/19 05:28 Promyelocytes # 0.0 K/mm3 01/06/19 05:28 Blast Cells # 0.0 K/mm3 01/06/19 05:28 WBC Morphology Not Reportable 01/06/19 05:28 Hypersegmented Neuts Not Reportable 01/06/19 05:28 Hyposegmented Neuts Not Reportable 01/06/19 05:28 Hypogranular Neuts Not Reportable 01/06/19 05:28 Smudge Cells Not Reportable 01/06/19 05:28 Toxic Granulation Not Reportable 01/06/19 05:28 Toxic Vacuolation Not Reportable 01/06/19 05:28 Dohle Bodies Not Reportable 01/06/19 05:28 Pelger-Huet Anomaly Not Reportable 01/06/19 05:28 Korin Rods Not Reportable 01/06/19 05:28 Platelet Estimate Consistent w auto 01/06/19 05:28 Clumped Platelets Not Reportable 01/06/19 05:28 Plt Clumps, EDTA Not Reportable 01/06/19 05:28 Large Platelets Not Reportable 01/06/19 05:28 Giant Platelets Not Reportable 01/06/19 05:28 Platelet Satelliting Not Reportable 01/06/19 05:28 Plt Morphology Comment Not Reportable 01/06/19 05:28 RBC Morphology Not Reportable 01/06/19 05:28 Dimorphic RBCs Not Reportable 01/06/19 05:28 Polychromasia Not Reportable 01/06/19 05:28 Hypochromasia Not Reportable 01/06/19 05:28 Poikilocytosis 1+ 01/06/19 05:28 Anisocytosis 1+ 01/06/19 05:28 Microcytosis Not Reportable 01/06/19 05:28 Macrocytosis Few 01/06/19 05:28 Spherocytes Not Reportable 01/06/19 05:28 Pappenheimer Bodies Not Reportable 01/06/19 05:28 Sickle Cells Not Reportable 01/06/19 05:28 Target Cells 1+ 01/06/19 05:28 Tear Drop Cells Not Reportable 01/06/19 05:28 Ovalocytes Not Reportable 01/06/19 05:28 Helmet Cells Not Reportable 01/06/19 05:28 [place] Bodies Not Reportable 01/06/19 05:28 [place] Rings Not Reportable 01/06/19 05:28 [place] Cells Not Reportable 01/06/19 05:28 Bite Cells Not Reportable 01/06/19 05:28 Crenated Cell Not Reportable 01/06/19 05:28 Elliptocytes Not Reportable 01/06/19 05:28 Acanthocytes (Spur) Not Reportable 01/06/19 05:28 Rouleaux Not Reportable 01/06/19 05:28 Hemoglobin C Crystals Not Reportable 01/06/19 05:28 Schistocytes Not Reportable 01/06/19 05:28 Malaria parasites Not Reportable 01/06/19 05:28 Macho Bodies Not Reportable 01/06/19 05:28 Hem Pathologist Commnt No 01/06/19 05:28 PT 15.3 Sec. (12.2-14.9) H 01/07/19 05:34 INR 1.14 (0.87-1.13) H 01/07/19 05:34 APTT 31.1 Sec. (24.2-36.6) 01/01/19 21:25 Sodium 139 mmol/L (137-145) 01/10/19 04:15 Potassium 3.6 mmol/L (3.6-5.0) 01/10/19 04:15 Chloride 108.0 mmol/L (98-107) H 01/10/19 04:15 Carbon Dioxide 22 mmol/L (22-30) 01/10/19 04:15 Anion Gap 13 mmol/L 01/10/19 04:15 BUN 36 mg/dL (9-20) H 01/10/19 04:15 Creatinine 1.9 mg/dL (0.8-1.5) H 01/10/19 04:15 Estimated GFR 43 ml/min 01/10/19 04:15 BUN/Creatinine Ratio 19 % 01/10/19 04:15 Glucose 117 mg/dL (75-100) H 01/10/19 04:15 POC Glucose 109 (70-105) H 01/02/19 08:07 Lactic Acid 1.80 mmol/L (0.7-2.0) 01/02/19 08:19 Calcium 7.8 mg/dL (8.4-10.2) L 01/10/19 04:15 Iron 77 ug/dL (49-181) 01/02/19 14:20 TIBC 160 mcg/dL (250-450) L 01/02/19 14:20 Ferritin 1071.0 ng/mL (13.0-400.0) H 01/02/19 14:20 Total Bilirubin 1.60 mg/dL (0.1-1.2) H 01/10/19 04:15 Direct Bilirubin 1.0 mg/dL (0-0.2) H 01/02/19 14:20 Indirect Bilirubin 0.7 mg/dL 01/02/19 14:20 AST 48 units/L (5-40) H 01/10/19 04:15 ALT 29 units/L (7-56) 01/10/19 04:15 Alkaline Phosphatase 64 units/L (35-129) 01/10/19 04:15 Ammonia 49.0 umol/L (25-60) 01/01/19 23:23 Total Protein 4.9 g/dL (6.3-8.2) L 01/10/19 04:15 Albumin 1.9 g/dL (3.9-5) L 01/10/19 04:15 Albumin/Globulin Ratio 0.6 % 01/10/19 04:15 Urine Color [place] (Yellow) 01/01/19 02:22 Urine Turbidity Slightly-cloudy (Clear) 01/01/19 02:22 Urine pH 5.0 (5.0-7.0) 01/01/19 02:22 Ur Specific [place] 1.015 (1.003-1.030) 01/01/19 02:22 Urine Protein 100 mg/dl mg/dL (Negative) 01/01/19 02:22 Urine Glucose (UA) Neg mg/dL (Negative) 01/01/19 02:22 Urine Ketones Tr mg/dL (Negative) 01/01/19 02:22 Urine Blood Mod (Negative) 01/01/19 02:22 Urine Nitrite Neg (Negative) 01/01/19 02:22 Urine Bilirubin Neg (Negative) 01/01/19 02:22 Urine Urobilinogen 4.0 mg/dL (<2.0) 01/01/19 02:22 Ur Leukocyte Esterase Tr (Negative) 01/01/19 02:22 Urine WBC (Auto) 27.0 /HPF (0.0-6.0) H 01/01/19 02:22 Urine RBC (Auto) 3.0 /HPF (0.0-6.0) 01/01/19 02:22 U Epithel Cells (Auto) < 1.0 /HPF (0-13.0) 01/01/19 02:22 Urine Bacteria (Auto) 1+ /HPF (Negative) 01/01/19 02:22 Hyaline Casts 41 /LPF 01/01/19 02:22 Granular Casts 4 /LPF 01/01/19 02:22 Urine Mucus 1+ /HPF 01/01/19 02:22 Fluid Type Ascitic 01/03/19 Unknown Fluid Color Yellow 01/03/19 Unknown Fluid Appearance Cloudy 01/03/19 Unknown Fluid WBC 21 /mm3 01/03/19 Unknown Fluid RBC 3150 /mm3 01/03/19 Unknown Fluid Seg Neutrophils 15.0 % 01/03/19 Unknown Fluid Lymphocytes 81.0 % 01/03/19 Unknown Fluid Reactive Lymphs 0 % 01/03/19 Unknown Fluid Monocytes 4.0 % 01/03/19 Unknown Fluid Eosinophils 0 % 01/03/19 Unknown Fluid Basophils 0 % 01/03/19 Unknown Random Vancomycin 14.1 ug/mL (0-40.0) 01/03/19 13:14 Hepatitis A IgM Ab Non-reactive (NonReactive) 01/02/19 14:20 Hep Bs Antigen Non-reactive (Negative) 01/02/19 14:20 Hep B Core IgM Ab Non-reactive (NonReactive) 01/02/19 14:20 Hepatitis C Antibody Reactive (NonReactive) A 01/02/19 14:20 Blood Type B POSITIVE 01/02/19 08:19 Antibody Screen Negative 01/02/19 08:19 Crossmatch See Detail 01/02/19 08:19 Nutrition/Malnutrition Assess - Dietary Evaluation Nutrition/Malnutrition Findings: Nutrition Notes Start: 01/02/19 13:43 Freq: Status: Active Protocol: Document 01/06/19 09:40 SA (Rec: 01/06/19 10:31 SA [id number]) Co-Sign 01/06/19 09:40 Nutrition Notes Initial or Follow up Reassessment Other Pertinent Diagnosis AMS, cirrhosis, ascites, UTI, esophageal ulcer, possible GI bleed Current Diet Full Liquid Labs/Tests Na: 135 BUN: 33 Glu: 132 Ca: 7.4 Pertinent Medications Reviewed Height 5 ft 11 in Weight 106.5 kg [place] Body Weight (kg) 78.18 BMI 32.7 Weight Status Obese Subjective/Other Information Patient confused at time of visit and unable to speak. Per patient nurse, patient has no appetite and not eating much of his meals. Nurse states patient eating less than 25% of meals. Nurse reports patient spitting up clear liquid and coughing during meals but also stated that pt usually coughs throughout the day. Percent of energy/protein needs met: 19%/8% Burn Absent Trauma Absent #1 Nutrition Diagnosis Inadequate oral intake As Evidenced by Signs and Symptoms full liquid diet Diagnosis Progress(for reassessment Continues documentation) Is patient on ventilator? No Is Patient Ambulatory and/or Out of Bed No REE-([facility]-confined to bed) [phone] Kcal/Kg value to use for calculation 14 Approximate Energy Requirements Using 1491 kcal/Kg Calculation Used for Recommendations Kcal/kg Additional Notes PRO: 111-138g PRO (1.2-1.5g/kg AdBW: 92.3kg) fluid: 1 ml/kcal Nutrition Intervention Change Diet Order: Advance from full liquid when medically feasible. Add Supplement/Snack (indicate name/kcal Ensure Enlive daily /protein ) Provides kCal: 350 Provides Protein (gm) 20 Goal #1 PO tolerance. Goal #2 Diet advancement. Goal #3 Meet at least 75% of kcal and PRO needs via PO Follow-Up By: 01/10/19 Additional Comments F/U: PO tolerance and ONS intakes
--- NOTE | 2019-01-10 08:47 | Progress Note ---
Assessment and Plan Cultures: 01/01/2019 blood culture: No growth 01/01/2019 urine culture: No growth 01/03/2019 ascitic fluid cultures: no growth at 24 hours A/P: 68-year-old male with chronic hepatitis C and associated liver cirrhosis with ascites admitted with: #1 Hypotension and shock: Improving. Ascitic fluid analysis not consistent with SBP. Hypotension following large volume paracentesis. Also with GI bleed. No evidence of pneumonia or urinary tract infection. Bacteremia also ruled out. Ascitic fluid cultures with no growth. Off pressors now. Low suspicion for an infectious process. Clinically stable, monitor off antibiotics. #2 Acute anemia with GI bleed: Improved. Patient with esophageal ulcer and varices. Status post EGD and variceal banding. #3 Acute kidney injury: Improving. Nephrology following. 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 Overall prognosis is guarded. #5 Acute encephalopathy: likely multifactorial. improving. Recs: discontinue Ceftriaxone, antibiotic course completed- Clinically stable monitor off antibiotics ID is signing off [facility] M: [id number] O:[phone] Subjective Date of service: 01/10/19 Principal diagnosis: cirrhosis Objective - Constitutional Vitals: Vital Signs Temp Pulse Resp BP Pulse Ox 97.7 F 92 H 18 99/64 95 01/10/19 02:26 01/10/19 02:26 01/10/19 02:26 01/10/19 02:26 01/10/19 02:26 Temperature -Last 24 Hours Temperature 97.7 F Temperature 97.8 F Temperature 97.8 F - Labs CBC & Chem 7: 01/10/19 04:15 01/10/19 04:15 Labs: Abnormal lab results 01/09/19 01/10/19 01/10/19 Range/Units 07:50 04:15 04:15 RBC 3.39 L (3.65-5.03) M/mm3 Hgb 10.9 L (11.8-15.2) gm/dl Hct 31.8 L (35.5-45.6) % RDW 17.4 H (13.2-15.2) % Plt Count 64 L (140-440) K/mm3 Potassium 3.3 L (3.6-5.0) mmol/L Chloride 107.4 H 108.0 H (98-107) mmol/L BUN 35 H 36 H (9-20) mg/dL Creatinine 1.6 H 1.9 H (0.8-1.5) mg/dL Glucose 124 H 117 H (75-100) mg/dL Calcium 7.7 L 7.8 L (8.4-10.2) mg/dL Total Bilirubin 1.60 H (0.1-1.2) mg/dL AST 48 H (5-40) units/L Total Protein 4.9 L (6.3-8.2) g/dL Albumin 1.9 L (3.9-5) g/dL
[2019-01-10] MEDS: CEPHULAC PO SCH (09:33)
[2019-01-10] MEDS: PROTONIX PO SCH (09:33)
--- NOTE | 2019-01-10 09:46 | Progress Note ---
Subjective Principal diagnosis: cirrhosis Interval history: Patient was seen today for follow-up on multiple renal related issues Events of this hospitalization noted Patient denies having any chest pain pressure or shortness of breath Vitals labs intake output medications were reviewed Social history: Reviewed Allergies: Reviewed Family history: Reviewed Physical examination HEENT: Oral mucosa moist no pallor or icterus Neck: Supple no JVD Chest: Clear to auscultation anteriorly CVS: Regular rate and rhythm S1 and S2 heard Abdomen: Soft nontender no suprapubic masses no organomegaly appreciable Extremity: Dry skin less than 1+ peripheral edema Musculoskeletal: No joint effusion noted in knees and ankle Neurological: Alert awake Dermatology: No petechial rashes Psychiatry: No evidence of any agitation and aggression noted Assessment and plan Acute kidney injury: Renal function somewhat worse today creatinine is 1.9 Hypokalemia better 3.6 severe protein calorie malnutrition likely due to liver disease Etiology of renal failure appears to be mostly from prerenal state due to third spacing of fluid, patient admitted with sepsis upper GI bleed large esophageal services status post banding and gastric ulceration, cannot exclude low-grade acute tubular necrosis Renal ultrasonogram: Results currently pending, CAT scan obtained 01/01/2019 shows normal appearance of the kidney without any evidence of hydronephrosis Status post paracentesis 01/07/2019 History of hepatitis C, cirrhosis, esophageal viruses, with ascites status post paracentesis large volume electrolyte imbalances: Continue to monitor potassium phosphorus magnesium Anemia: Stable hemoglobin currently 10.9 thrombocytopenia: Chronic Patient was adequately counseled and educated regarding multiple renal related issues Pertinent lab findings were discussed with patient, patient does exhibit good understanding of renal issues We'll continue to follow and make recommendation from renal standpoint Objective - Vital Signs Vital signs: Vital Signs - 12hr 01/09/19 01/10/19 01/10/19 23:00 02:26 09:01 Temperature 97.7 F 97.9 F Pulse Rate 92 H 89 Respiratory 20 18 20 Rate Respiratory 18 Rate [Throat] Blood Pressure 99/64 94/60 O2 Sat by Pulse 94 95 99 Oximetry - Lab 01/10/19 04:15 01/10/19 04:15 Most recent lab results Calcium 7.8 mg/dL (8.4-10.2) L 01/10/19 04:15 Medications & Allergies - Medications Allergies/Adverse Reactions: Allergies No Known Allergies Allergy (Verified 01/01/19 23:23) Home Medications: Home Medications Medication Instructions Recorded Confirmed Last Taken Type No Known Home Medications [No 01/07/19 01/07/19 Unknown History Reported Home Medications] Active Medications: Generic Name Dose Route Start Last Admin Trade Name Freq PRN Reason Stop Dose Admin Dextrose/Sodium Chloride 1,000 mls @ 75 mls/hr 01/05/19 13:00 01/10/19 00:27 D5ns IV 50 mls/hr DIRECT LORI Administration Lactulose 20 gm 01/07/19 22:00 01/10/19 09:33 Cephulac PO Not Given BID LORI Morphine Sulfate 2 mg 01/04/19 10:02 01/06/19 17:12 Morphine IV 2 mg Q4H PRN Administration Pain, Moderate (4-6) Ondansetron HCl 4 mg 01/02/19 01:49 01/09/19 10:31 Zofran IV 4 mg Q8H PRN Administration Nausea And Vomiting Pantoprazole Sodium 40 mg 01/05/19 22:00 01/10/19 09:33 Protonix PO Not Given BID LORI
--- NOTE | 2019-01-10 09:48 | Ultrasound Report ---
FINAL REPORT EXAM: US RENAL BILAT HISTORY: ROBERTO TECHNIQUE: Renal ultrasound performed. PRIORS: Correlation is made with CT of the abdomen and pelvis of 01/02/2019 FINDINGS: The left kidney is not visualized despite its presence on recent CT. There is a large amount of ascit es. The right kidney measures 10.8 x 4.7 x 5.9 cm. There is no right hydronephrosis, focal renal mass or renal calculi seen IMPRESSION: Left kidney is not seen sonographically. There is a large amount of ascites. Right kidney demonstrates no significant abnormality.
[2019-01-10 11:00] LABS: Total Protein,Body Fluid < 3.0 (15.0-45.0)
[2019-01-10 11:06] LABS: LDH,Body Fluid 99
--- NOTE | 2019-01-10 11:35 | Progress Note ---
Assessment and Plan Assessment and plan: Patient is 68 year old male admitted with sepsis, AMS, chronic hep C, decompensated cirrhosis and ascites and presumed SBP and concern for GI bleed. The patient proceeded to have Paracentesis with full fluid analysis pending. He also underwent EGD with notation of Distal Esophgeal ulcer at the GE Junction and also 2-3 large Esophageal varies with banding performed. Patient has had 2 paracentesis. He was initially in the ICU. Mental status improved with initiation of Lactulose. Patient at this time refusiong medical treatment adn requesting for hospice. He gives verifiable information such as mothers age, (99), mothers prior hospice experience, sons name, ex-wifs name and occupation both sister and ex-sister agree that patient refuses medical management and should honor his hospice request. I have not been able to get to his son, ex- refuses to give a number for the son and states she wants him to return to school outside the country in good frame of mind Patient is of clear minds and provided information SIRS No Sepsis Hepatic Encephalopathy Lactic acidosis GI bleed- Upper GI-gastric ulcers Esophageal Varices X2 with bleed Acute Metabolic Encephalopathy ROBERTO secondary to vasomotor Nephropathy now resolved Ascites Decompensated Cirrhosis Thrombocytopenia Hypokalemia- Replace Plan Continue supportive care Encouraged patient to eat. BB precluded due to hypotension Continue ammonia but adjust upwards Repeated paracenetesis Complete Abx Replace and manage electrolytes Continue PPI Octreotide discontinued per GI recommendation Critical care input noted, and will follow there management Renal input appreciated Imaging studies reviewed and no other acute pathology in the brain DVT/GI prophy Plan discussed with Nursings staff. Discharged to SNF with Hospice. History Interval history: Patient seen and examined, remarkable improvement in mental status. No shortness of breath noted. nursing staff reports patient not eating but no complaints about pain with food and now refusing his medications also. Hospitalist Physical - Physical exam Narrative exam: VITAL SIGNS: Reviewed. GENERAL: The patient appeared well nourished and normally developed, still lethargic. Vital signs as documented. HEAD: No signs of head trauma. EYES: Pupils are equal. Extraocular motions intact. EARS: Hearing grossly intact. MOUTH: Oropharynx is normal. NECK: No adenopathy, no JVD. CHEST: Chest with clear breath sounds bilaterally. No wheezes, rales, or rhonchi. CARDIAC: Regular rate and rhythm. S1 and S2, without murmurs, gallops, or rubs. VASCULAR: No Edema. Peripheral pulses normal and equal in all extremities. ABDOMEN: Soft, without detectable tenderness. distended with positive fluid shift. No rebound or guarding, and no masses palpated. Bowel Sounds normal. MUSCULOSKELETAL: Good range of motion of all major joints. Extremities without clubbing, cyanosis or edema. NEUROLOGIC EXAM: awake, oriented x3 . PSYCHIATRIC: Mood normal. SKIN: No rash or lesions. - Constitutional Vitals: Temp Pulse Resp BP Pulse Ox 97.9 F 89 20 94/60 99 01/10/19 09:01 01/10/19 09:01 01/10/19 09:01 01/10/19 09:01 01/10/19 09:01 Results - Labs CBC & Chem 7: 01/10/19 04:15 01/10/19 04:15 Labs: Laboratory Last Values WBC 9.1 K/mm3 (4.5-11.0) 01/10/19 04:15 RBC 3.39 M/mm3 (3.65-5.03) L 01/10/19 04:15 Hgb 10.9 gm/dl (11.8-15.2) L 01/10/19 04:15 Hct 31.8 % (35.5-45.6) L 01/10/19 04:15 MCV 94 fl (84-94) 01/10/19 04:15 MCH 32 pg (28-32) 01/10/19 04:15 MCHC 34 % (32-34) 01/10/19 04:15 RDW 17.4 % (13.2-15.2) H 01/10/19 04:15 Plt Count 64 K/mm3 (140-440) L 01/10/19 04:15 Lymph % (Auto) 10.6 % (13.4-35.0) L 01/03/19 05:05 [place] % (Auto) Service Captain 01/06/19 05:28 Eos % (Auto) 0.0 % (0.0-4.3) 01/03/19 05:05 Baso % (Auto) 0.1 % (0.0-1.8) 01/03/19 05:05 Lymph # 0.8 K/mm3 (1.2-5.4) L 01/03/19 05:05 [place] # 0.8 K/mm3 (0.0-0.8) 01/03/19 05:05 Eos # 0.0 K/mm3 (0.0-0.4) 01/03/19 05:05 Baso # 0.0 K/mm3 (0.0-0.1) 01/03/19 05:05 Add Manual Diff Complete 01/06/19 05:28 Total Counted 100 01/06/19 05:28 Seg Neutrophils % 78.0 % (40.0-70.0) H 01/03/19 05:05 Seg Neuts % (Manual) 74.0 % (40.0-70.0) H 01/06/19 05:28 Band Neutrophils % 0 % 01/06/19 05:28 Lymphocytes % (Manual) 13.0 % (13.4-35.0) L 01/06/19 05:28 Reactive Lymphs % (Man) 0 % 01/06/19 05:28 Monocytes % (Manual) 10.0 % (0.0-7.3) H 01/06/19 05:28 Eosinophils % (Manual) 3.0 % (0.0-4.3) 01/06/19 05:28 Basophils % (Manual) 0 % (0.0-1.8) 01/06/19 05:28 Metamyelocytes % 0 % 01/06/19 05:28 Myelocytes % 0 % 01/06/19 05:28 Promyelocytes % 0 % 01/06/19 05:28 Blast Cells % 0 % 01/06/19 05:28 Nucleated RBC % Not Reportable 01/06/19 05:28 Seg Neutrophils # 5.6 K/mm3 (1.8-7.7) 01/03/19 05:05 Seg Neutrophils # Man 4.8 K/mm3 (1.8-7.7) 01/06/19 05:28 Band Neutrophils # 0.0 K/mm3 01/06/19 05:28 Lymphocytes # (Manual) 0.8 K/mm3 (1.2-5.4) L 01/06/19 05:28 Abs React Lymphs (Man) 0.0 K/mm3 01/06/19 05:28 Monocytes # (Manual) 0.7 K/mm3 (0.0-0.8) 01/06/19 05:28 Eosinophils # (Manual) 0.2 K/mm3 (0.0-0.4) 01/06/19 05:28 Basophils # (Manual) 0.0 K/mm3 (0.0-0.1) 01/06/19 05:28 Metamyelocytes # 0.0 K/mm3 01/06/19 05:28 Myelocytes # 0.0 K/mm3 01/06/19 05:28 Promyelocytes # 0.0 K/mm3 01/06/19 05:28 Blast Cells # 0.0 K/mm3 01/06/19 05:28 WBC Morphology Not Reportable 01/06/19 05:28 Hypersegmented Neuts Not Reportable 01/06/19 05:28 Hyposegmented Neuts Not Reportable 01/06/19 05:28 Hypogranular Neuts Not Reportable 01/06/19 05:28 Smudge Cells Not Reportable 01/06/19 05:28 Toxic Granulation Not Reportable 01/06/19 05:28 Toxic Vacuolation Not Reportable 01/06/19 05:28 Dohle Bodies Not Reportable 01/06/19 05:28 Pelger-Huet Anomaly Not Reportable 01/06/19 05:28 Korin Rods Not Reportable 01/06/19 05:28 Platelet Estimate Consistent w auto 01/06/19 05:28 Clumped Platelets Not Reportable 01/06/19 05:28 Plt Clumps, EDTA Not Reportable 01/06/19 05:28 Large Platelets Not Reportable 01/06/19 05:28 Giant Platelets Not Reportable 01/06/19 05:28 Platelet Satelliting Not Reportable 01/06/19 05:28 Plt Morphology Comment Not Reportable 01/06/19 05:28 RBC Morphology Not Reportable 01/06/19 05:28 Dimorphic RBCs Not Reportable 01/06/19 05:28 Polychromasia Not Reportable 01/06/19 05:28 Hypochromasia Not Reportable 01/06/19 05:28 Poikilocytosis 1+ 01/06/19 05:28 Anisocytosis 1+ 01/06/19 05:28 Microcytosis Not Reportable 01/06/19 05:28 Macrocytosis Few 01/06/19 05:28 Spherocytes Not Reportable 01/06/19 05:28 Pappenheimer Bodies Not Reportable 01/06/19 05:28 Sickle Cells Not Reportable 01/06/19 05:28 Target Cells 1+ 01/06/19 05:28 Tear Drop Cells Not Reportable 01/06/19 05:28 Ovalocytes Not Reportable 01/06/19 05:28 Helmet Cells Not Reportable 01/06/19 05:28 Shrestha-Applewood Bodies Not Reportable 01/06/19 05:28 Maxwell Rings Not Reportable 01/06/19 05:28 [place] Cells Not Reportable 01/06/19 05:28 Bite Cells Not Reportable 01/06/19 05:28 Crenated Cell Not Reportable 01/06/19 05:28 Elliptocytes Not Reportable 01/06/19 05:28 Acanthocytes (Spur) Not Reportable 01/06/19 05:28 Rouleaux Not Reportable 01/06/19 05:28 Hemoglobin C Crystals Not Reportable 01/06/19 05:28 Schistocytes Not Reportable 01/06/19 05:28 Malaria parasites Not Reportable 01/06/19 05:28 Macho Bodies Not Reportable 01/06/19 05:28 Hem Pathologist Commnt No 01/06/19 05:28 PT 15.3 Sec. (12.2-14.9) H 01/07/19 05:34 INR 1.14 (0.87-1.13) H 01/07/19 05:34 APTT 31.1 Sec. (24.2-36.6) 01/01/19 21:25 Sodium 139 mmol/L (137-145) 01/10/19 04:15 Potassium 3.6 mmol/L (3.6-5.0) 01/10/19 04:15 Chloride 108.0 mmol/L (98-107) H 01/10/19 04:15 Carbon Dioxide 22 mmol/L (22-30) 01/10/19 04:15 Anion Gap 13 mmol/L 01/10/19 04:15 BUN 36 mg/dL (9-20) H 01/10/19 04:15 Creatinine 1.9 mg/dL (0.8-1.5) H 01/10/19 04:15 Estimated GFR 43 ml/min 01/10/19 04:15 BUN/Creatinine Ratio 19 % 01/10/19 04:15 Glucose 117 mg/dL (75-100) H 01/10/19 04:15 POC Glucose 109 (70-105) H 01/02/19 08:07 Lactic Acid 1.80 mmol/L (0.7-2.0) 01/02/19 08:19 Calcium 7.8 mg/dL (8.4-10.2) L 01/10/19 04:15 Iron 77 ug/dL (49-181) 01/02/19 14:20 TIBC 160 mcg/dL (250-450) L 01/02/19 14:20 Ferritin 1071.0 ng/mL (13.0-400.0) H 01/02/19 14:20 Total Bilirubin 1.60 mg/dL (0.1-1.2) H 01/10/19 04:15 Direct Bilirubin 1.0 mg/dL (0-0.2) H 01/02/19 14:20 Indirect Bilirubin 0.7 mg/dL 01/02/19 14:20 AST 48 units/L (5-40) H 01/10/19 04:15 ALT 29 units/L (7-56) 01/10/19 04:15 Alkaline Phosphatase 64 units/L (35-129) 01/10/19 04:15 Ammonia 49.0 umol/L (25-60) 01/01/19 23:23 Total Protein 4.9 g/dL (6.3-8.2) L 01/10/19 04:15 Albumin 1.9 g/dL (3.9-5) L 01/10/19 04:15 Albumin/Globulin Ratio 0.6 % 01/10/19 04:15 Urine Color [place] (Yellow) 01/01/19 02:22 Urine Turbidity Slightly-cloudy (Clear) 01/01/19 02:22 Urine pH 5.0 (5.0-7.0) 01/01/19 02:22 Ur Specific [place] 1.015 (1.003-1.030) 01/01/19 02:22 Urine Protein 100 mg/dl mg/dL (Negative) 01/01/19 02:22 Urine Glucose (UA) Neg mg/dL (Negative) 01/01/19 02:22 Urine Ketones Tr mg/dL (Negative) 01/01/19 02:22 Urine Blood Mod (Negative) 01/01/19 02:22 Urine Nitrite Neg (Negative) 01/01/19 02:22 Urine Bilirubin Neg (Negative) 01/01/19 02:22 Urine Urobilinogen 4.0 mg/dL (<2.0) 01/01/19 02:22 Ur Leukocyte Esterase Tr (Negative) 01/01/19 02:22 Urine WBC (Auto) 27.0 /HPF (0.0-6.0) H 01/01/19 02:22 Urine RBC (Auto) 3.0 /HPF (0.0-6.0) 01/01/19 02:22 U Epithel Cells (Auto) < 1.0 /HPF (0-13.0) 01/01/19 02:22 Urine Bacteria (Auto) 1+ /HPF (Negative) 01/01/19 02:22 Hyaline Casts 41 /LPF 01/01/19 02:22 Granular Casts 4 /LPF 01/01/19 02:22 Urine Mucus 1+ /HPF 01/01/19 02:22 Fluid Type Ascitic 01/03/19 Unknown Fluid Color Yellow 01/03/19 Unknown Fluid Appearance Cloudy 01/03/19 Unknown Fluid WBC 21 /mm3 01/03/19 Unknown Fluid RBC 3150 /mm3 01/03/19 Unknown Fluid Seg Neutrophils 15.0 % 01/03/19 Unknown Fluid Lymphocytes 81.0 % 01/03/19 Unknown Fluid Reactive Lymphs 0 % 01/03/19 Unknown Fluid Monocytes 4.0 % 01/03/19 Unknown Fluid Eosinophils 0 % 01/03/19 Unknown Fluid Basophils 0 % 01/03/19 Unknown Fluid Glucose 147 mg/dL (40-70) H 01/03/19 Unknown Fluid Total Protein < 3.0 (15.0-45.0) L 01/03/19 Unknown Fluid Albumin 0.8 g/dL 01/03/19 Unknown Fluid LDH 99 01/03/19 Unknown Random Vancomycin 14.1 ug/mL (0-40.0) 01/03/19 13:14 Hepatitis A IgM Ab Non-reactive (NonReactive) 01/02/19 14:20 Hep Bs Antigen Non-reactive (Negative) 01/02/19 14:20 Hep B Core IgM Ab Non-reactive (NonReactive) 01/02/19 14:20 Hepatitis C Antibody Reactive (NonReactive) A 01/02/19 14:20 Blood Type B POSITIVE 01/02/19 08:19 Antibody Screen Negative 01/02/19 08:19 Crossmatch See Detail 01/02/19 08:19 Nutrition/Malnutrition Assess - Dietary Evaluation Nutrition/Malnutrition Findings: Nutrition Notes Start: 01/02/19 13:43 Freq: Status: Active Protocol: Document 01/06/19 09:40 SA (Rec: 01/06/19 10:31 SA [id number]) Co-Sign 01/06/19 09:40 RM Nutrition Notes Initial or Follow up Reassessment Other Pertinent Diagnosis AMS, cirrhosis, ascites, UTI, esophageal ulcer, possible GI bleed Current Diet Full Liquid Labs/Tests Na: 135 BUN: 33 Glu: 132 Ca: 7.4 Pertinent Medications Reviewed Height 5 ft 11 in Weight 106.5 kg [place] Body Weight (kg) 78.18 BMI 32.7 Weight Status Obese Subjective/Other Information Patient confused at time of visit and unable to speak. Per patient nurse, patient has no appetite and not eating much of his meals. Nurse states patient eating less than 25% of meals. Nurse reports patient spitting up clear liquid and coughing during meals but also stated that pt usually coughs throughout the day. Percent of energy/protein needs met: 19%/8% Burn Absent Trauma Absent #1 Nutrition Diagnosis Inadequate oral intake As Evidenced by Signs and Symptoms full liquid diet Diagnosis Progress(for reassessment Continues documentation) Is patient on ventilator? No Is Patient Ambulatory and/or Out of Bed No REE-([facility]-confined to bed) 2245.608 Kcal/Kg value to use for calculation 14 Approximate Energy Requirements Using 1491 kcal/Kg Calculation Used for Recommendations Kcal/kg Additional Notes PRO: 111-138g PRO (1.2-1.5g/kg AdBW: 92.3kg) fluid: 1 ml/kcal Nutrition Intervention Change Diet Order: Advance from full liquid when medically feasible. Add Supplement/Snack (indicate name/kcal Ensure Enlive daily /protein ) Provides kCal: 350 Provides Protein (gm) 20 Goal #1 PO tolerance. Goal #2 Diet advancement. Goal #3 Meet at least 75% of kcal and PRO needs via PO Follow-Up By: 01/10/19 Additional Comments F/U: PO tolerance and ONS intakes - Attestation Statement I have reviewed and agreed w/ Malnutrition eval & tx plan: Yes
--- NOTE | 2019-01-10 11:39 | Discharge Summary ---
Providers - Providers Date of Admission: 01/02/19 01:24 Attending physician: OWEN MCINTOSH MD 01/02/19 06:00 Consult to Interventional Radiology [CONS] Routine Consulting Provider: RUTH ANN HANKINS Reason For Exam: US GUIDED PARACENTESIS Place consult to:: Dr. Jane Angela Notified:: Yes Phone number called:: [phone] If yes, spoke with:: Dr. Nick Mcgill Time called:: 09:55 Comment:: Dr. Romero stated he will do the US paracenthesis tomorrow. Consult to Physician [CONS] Routine Comment: Consulting Provider: EAMON VALENZUELA Physician Instructions: Reason For Exam: ROBERTO Consult to Physician [CONS] Routine Comment: Consulting Provider: AKIRA AGUILA Physician Instructions: Reason For Exam: ASCITIS WITH JAUNDICE AND ELEVATED LIVER ENZYME 01/04/19 08:09 Consult to Physician [CONS] Routine Comment: Consulting Provider: GUI GONZALES Physician Instructions: Reason For Exam: SPB 01/04/19 13:29 Consult to PICC Line RN [CONS] Routine Reason For Exam: replace femoral TLC Type Line:: PICC 01/05/19 10:17 Physical Therapy Evaluation and Treat [CONS] Routine Comment: Reason For Exam: Deconditioning 01/05/19 10:18 Occupational Therapy Evaluate and Treat [CONS] Routine Comment: Reason For Exam: Deconditioning [facility]: St[facility] Disposition: [facility] ([facility] Time spent for discharge: 35 mins Exam - Physical Exam Narrative exam: VITAL SIGNS: Reviewed. GENERAL: The patient appeared well nourished and normally developed, still lethargic. Vital signs as documented. HEAD: No signs of head trauma. EYES: Pupils are equal. Extraocular motions intact. EARS: Hearing grossly intact. MOUTH: Oropharynx is normal. NECK: No adenopathy, no JVD. CHEST: Chest with clear breath sounds bilaterally. No wheezes, rales, or rhonchi. CARDIAC: Regular rate and rhythm. S1 and S2, without murmurs, gallops, or rub s. VASCULAR: No Edema. Peripheral pulses normal and equal in all extremities. ABDOMEN: Soft, without detectable tenderness. distended with positive fluid shift. No rebound or guarding, and no masses palpated. Bowel Sounds normal. MUSCULOSKELETAL: Good range of motion of all major joints. Extremities without clubbing, cyanosis or edema. NEUROLOGIC EXAM: awake, oriented x3 . PSYCHIATRIC: Mood normal. SKIN: No rash or lesions. - Constitutional Vitals: Temp Pulse Resp BP Pulse Ox 97.9 F 89 20 94/60 99 01/10/19 09:01 01/10/19 09:01 01/10/19 09:01 01/10/19 09:01 01/10/19 09:01 Plan Activity: advance as tolerated, fall precautions Diet: low fat, low salt Follow up with: TAMARA DOSSKIRKWOOD MD BHAVYA [Primary Care Provider] - 3-5 Days YONY SINHA MD [Staff Physician] - 7 Days
[2019-01-11 08:20] VITALS: BP 99/64
--- NOTE | 2019-01-11 09:42 | Progress Note ---
Subjective Principal diagnosis: cirrhosis Interval history: Patient was seen today for follow-up on multiple renal related issues Events of this hospitalization noted Patient wants to be discharged Patient denies having any chest pain pressure or shortness of breath Vitals labs intake output medications were reviewed Social history: Reviewed Allergies: Reviewed Family history: Reviewed Physical examination HEENT: Oral mucosa moist no pallor or icterus Neck: Supple no JVD Chest: Clear to auscultation anteriorly CVS: Regular rate and rhythm S1 and S2 heard Abdomen: Soft nontender no suprapubic masses no organomegaly appreciable Extremity: Dry skin less than 1+ peripheral edema Musculoskeletal: No joint effusion noted in knees and ankle Neurological: Alert awake Dermatology: No petechial rashes Psychiatry: No evidence of any agitation and aggression noted Assessment and plan Acute renal failure patient's creatinine has risen from 1.5-1.9 as of yesterday, patient's overall prognosis appears to be poor, patient will be prone to worsening of renal failure due to third spacing of fluid progressive renal ischemia can result in worsening of renal failure, patient was educated about this He will need to have a follow-up appointment in the outpatient office, health permitting Hyponatremia: Multifactorial in my opinion at this point Hypokalemia has improved to 3.6 as of yesterday Renal ultrasonogram obtained January 09 shows Patient has large amount of ascites, patient has history of hepatitis C, cir rhosis, esophageal varices services Anemia thrombocytopenia likely due to liver disease, chronic comorbidities Etiology of renal failure appears to be mostly from prerenal state due to third spacing of fluid, patient admitted with sepsis upper GI bleed large esophageal services status post banding and gastric ulceration, cannot exclude low-grade acute tubular necrosis Renal ultrasonogram: Results reviewed discussed with patient CAT scan obtained 01/01/2019 shows normal appearance of the kidney without any evidence of hydronephrosis Status post paracentesis 01/07/2019 History of hepatitis C, cirrhosis, esophageal viruses, with ascites status post paracentesis large volume electrolyte imbalances: Continue to monitor potassium phosphorus magnesium Anemia: Stable hemoglobin currently 10.9 thrombocytopenia: Chronic Patient was adequately counseled and educated regarding multiple renal related issues Pertinent lab findings were discussed with patient, patient does exhibit good understanding of renal issues We'll continue to follow and make recommendation from renal standpoint Objective - Vital Signs Vital signs: Vital Signs - 12hr 01/11/19 01/11/19 01/11/19 02:00 02:26 08:01 Temperature 98.5 F Pulse Rate 92 H 102 H Respiratory 20 Rate Blood Pressure 99/64 Blood Pressure 104/66 [Right] O2 Sat by Pulse 94 97 Oximetry 01/11/19 08:29 Temperature Pulse Rate Respiratory Rate Blood Pressure Blood Pressure [Right] O2 Sat by Pulse 96 Oximetry - Lab 01/10/19 04:15 01/10/19 04:15 Most recent lab results Calcium 7.8 mg/dL (8.4-10.2) L 01/10/19 04:15 Medications & Allergies - Medications Allergies/Adverse Reactions: Allergies No Known Allergies Allergy (Verified 01/01/19 23:23) Home Medications: Home Medications Medication Instructions Recorded Confirmed Last Taken Type Lactulose [Cephulac] 20 gm PO BID oral.liqd 01/10/19 Unknown Rx Pantoprazole [Protonix TAB] 40 mg PO BID tablet 01/10/19 Unknown Rx Active Medications: Generic Name Dose Route Start Last Admin Trade Name Freq PRN Reason Stop Dose Admin Dextrose/Sodium Chloride 1,000 mls @ 75 mls/hr 01/05/19 13:00 01/10/19 19:54 D5ns IV 50 mls/hr DIRECT LORI Administration Lactulose 20 gm 01/07/19 22:00 01/10/19 09:33 Cephulac PO Not Given BID LORI Morphine Sulfate 2 mg 01/04/19 10:02 01/06/19 17:12 Morphine IV 2 mg Q4H PRN Administration Pain, Moderate (4-6) Ondansetron HCl 4 mg 01/02/19 01:49 01/09/19 10:31 Zofran IV 4 mg Q8H PRN Administration Nausea And Vomiting Pantoprazole Sodium 40 mg 01/05/19 22:00 01/10/19 09:33 Protonix PO Not Given BID LORI
[2019-01-11] MEDS: PROTONIX PO SCH ×2 (10:24→10:26)
[2019-01-11] MEDS: CEPHULAC PO SCH ×2 (10:24→10:25)
[2019-01-11 10:43] LABS: Calcium 7.8 mg/dL (8.4-10.2)
--- NOTE | 2019-01-11 12:36 | Discharge Summary ---
Providers - Providers Date of Admission: 01/02/19 01:24 Date of discharge: 01/11/19 Attending physician: BRYNN CANO 01/02/19 06:00 Consult to Interventional Radiology [CONS] Routine Consulting Provider: RUTH ANN HANKINS Reason For Exam: US GUIDED PARACENTESIS Place consult to:: Dr. Jane Angela Notified:: Yes Phone number called:: [phone] If yes, spoke with:: Dr. Nick Mcgill Time called:: 09:55 Comment:: Dr. Romero stated he will do the US paracenthesis tomorrow. Consult to Physician [CONS] Routine Comment: Consulting Provider: EAMON VALENZUELA Physician Instructions: Reason For Exam: ROBERTO Consult to Physician [CONS] Routine Comment: Consulting Provider: AKIRA AGUILA Physician Instructions: Reason For Exam: ASCITIS WITH JAUNDICE AND ELEVATED LIVER ENZYME 01/04/19 08:09 Consult to Physician [CONS] Routine Comment: Consulting Provider: GUI GONZALES Physician Instructions: Reason For Exam: SPB 01/04/19 13:29 Consult to PICC Line RN [CONS] Routine Reason For Exam: replace femoral TLC Type Line:: PICC 01/05/19 10:17 Physical Therapy Evaluation and Treat [CONS] Routine Comment: Reason For Exam: Deconditioning 01/05/19 10:18 Occupational Therapy Evaluate and Treat [CONS] Routine Comment: Reason For Exam: Deconditioning [facility] Condition: Poor Hospital course: Patient is 68 year old male admitted with sepsis, AMS, chronic hep C, decompensated cirrhosis and ascites and presumed SBP and concern for GI bleed. The patient proceeded to have Paracentesis , and also underwent EGD with notation of Distal Esophgeal ulcer at the GE [place]unction and also 2-3 large Esophageal varies with banding performed. Patient has had 2 paracentesis. He was initially in the ICU. Mental status improved with initiation of Lactulose. Patient and family requested hospice so was discharged to [facility] on 01/12/19. Total time spent on discharge, 32 mins Disposition: [facility] ([facility]) - Discharge Diagnoses (1) Cirrhosis Status: Acute Qualifiers: Ascites presence: with ascites (2) GI bleed Status: Acute (3) Hyperbilirubinemia Status: Acute (4) Hyponatremia Status: Acute (5) Pleural effusion Status: Acute (6) UTI (urinary tract infection) Status: Acute (7) SIRS (systemic inflammatory response syndrome) Status: Acute (8) ROBERTO (acute kidney injury) Status: Acute (9) Vasomotor nephropathy Status: Acute Core Measure Documentation - Palliative Care Palliative Care/ Comfort Measures: Hospice Care - Core Measures Any of the following diagnoses?: none Exam - Constitutional Vitals: Temp Pulse Resp BP Pulse Ox 98.5 F 102 H 20 99/64 96 01/11/19 08:01 01/11/19 08:01 01/11/19 08:01 01/11/19 08:01 01/11/19 08:29 General appearance: Present: no acute distress Plan Activity: advance as tolerated Diet: other (Full liquid diet, renal diet , advance as tolerated) Additional Instructions: 1.Patient discharged to hospice to care of [employer]. Follow up with: JOSE MANUEL BRICEÑO MD [Primary Care Provider] - 7 Days
== END 2019-01-11 14:07 | disposition hospice, inpatient (51) | DRG 432 ==
LOC: ED 20:40 → CC1 01-02 01:24 → 2B-ACE 01-05 13:28
PROVIDERS: ADMIT Internal Medicine; ATTEND Internal Medicine
PROC: 06HY33Z Insertion of Infusion Device into Lower Vein, Percutaneous Approach (ICD-10-PCS; 2019-01-02)
PROC: 30233N1 Transfusion of Nonautologous Red Blood Cells into Peripheral Vein, Percutaneous Approach (ICD-10-PCS; 2019-01-03)
PROC: 0W9G3ZZ Drainage of Peritoneal Cavity, Percutaneous Approach (ICD-10-PCS; 2019-01-03)
PROC: 06L38CZ Occlusion of Esophageal Vein with Extraluminal Device, Via Natural or Artificial Opening Endoscopic (ICD-10-PCS; principal; 2019-01-04)
PROC: 0W9G3ZZ Drainage of Peritoneal Cavity, Percutaneous Approach (ICD-10-PCS; 2019-01-07)
DX: K74.60 Unspecified cirrhosis of liver (principal); G93.41 Metabolic encephalopathy; N17.0 Acute kidney failure with tubular necrosis; I85.11 Secondary esophageal varices with bleeding; K25.4 Chronic or unspecified gastric ulcer with hemorrhage; N39.0 Urinary tract infection, site not specified; E87.1 Hypo-osmolality and hyponatremia; E87.2 Acidosis; K22.10 Ulcer of esophagus without bleeding; R18.8 Other ascites; R65.10 Systemic inflammatory response syndrome (SIRS) of non-infectious origin without acute organ dysfunction; K72.90 Hepatic failure, unspecified without coma; F17.200 Nicotine dependence, unspecified, uncomplicated; D64.9 Anemia, unspecified; B18.2 Chronic viral hepatitis C; F10.10 Alcohol abuse, uncomplicated; D69.6 Thrombocytopenia, unspecified; E87.6 Hypokalemia; E83.42 Hypomagnesemia; I95.9 Hypotension, unspecified; Z82.49 Family history of ischemic heart disease and other diseases of the circulatory system
CPT/HCPCS: 36415; 49083; 70450; 71045; 74176; 76770; 80048; 80053; 80074; 80076; 80202; 81001; 82040; 82140; 82728; 82947; 82962; 83550; 83605; 83930; 84160; 85007; 85014; 85018; 85025; 85027; 85610; 85730; 86850; 86900; 86901; 86920; 87040; 87086; 87116; 88112; 88305; 89051; 93005; 93010; 94760; G0378; C9113; J0692; J0696; J2270; J2354; J2370; J2405; J2704; J2765; J3370; J3475; J3480; J7030; J7040; J7042; J7050; P9016; P9047